=== PATIENT | male | born 1965 | race Caucasian/White ===

== ENCOUNTER → 2017-12-02 11:08 | Outpatient (REF) | payer OTHER, SELFPAY ==
[2017-12-02 13:46] LABS: Amphetamine/Metha Screen,Urine Negative ng/mL (<1000); Barbiturates Screen,Urine Negative ng/mL (<200); Benzodiazepines Screen,Urine Negative ng/mL (200); Cannabinoid Screen,Urine Negative ng/mL (<50); Cocaine Screen,Urine Negative ng/g (<300); Methadone Screen,Urine Negative ng/mL (<300); Opiate Screen,Urine Positive ng/mL (<300); Phencyclidine Screen,Urine Negative ng/mL (<25)
== END ==
LOC: LAB 11:08
PROVIDERS: Visit Provider Emergency Medicine
DX: Z79.899 Other long term (current) drug therapy (principal)
CPT/HCPCS: 80305

== ENCOUNTER → 2017-12-28 13:14 | Outpatient (CLI) | payer OTHER, SELFPAY ==
[2017-12-28 19:45] LABS: Hemoglobin A1C 5.8 % (0.0-7.0)
[2017-12-28 20:32] LABS: Anion Gap 11.5 mEq/L (5-15); Blood Urea Nitrogen 11 mg/dL (7-18); Carbon Dioxide 29 mmol/L (21.0-32.0); Chloride 97 mmol/L (98-107); Creatinine,Serum 0.88 mg/dL (0.70-1.30); Estimated Glomerular Filt Rate 91 ml/min (>60); GFR (African American) 110 ML/MIN (>60); Glucose 108 mg/dL (74-106); Potassium 4.5 mmoL/L (3.5-5.1); Sodium 133 mmol/L (136-145)
[2017-12-28 20:33] LABS: Amphetamine/Metha Screen,Urine Negative ng/mL (<1000); Barbiturates Screen,Urine Negative ng/mL (<200); Benzodiazepines Screen,Urine Negative ng/mL (200); Cannabinoid Screen,Urine Negative ng/mL (<50); Cocaine Screen,Urine Negative ng/g (<300); Methadone Screen,Urine Negative ng/mL (<300); Opiate Screen,Urine Positive ng/mL (<300); Phencyclidine Screen,Urine Negative ng/mL (<25)
== END ==
PROVIDERS: Visit Provider Emergency Medicine
DX: Z79.899 Other long term (current) drug therapy (principal); R53.83 Other fatigue
CPT/HCPCS: 80048; 80305; 83036

== ENCOUNTER → 2018-01-25 13:13 | Outpatient (REF) | payer OTHER, SELFPAY ==
[2018-01-25 18:35] LABS: Amphetamine/Metha Screen,Urine Negative ng/mL (<1000); Barbiturates Screen,Urine Negative ng/mL (<200); Benzodiazepines Screen,Urine Negative ng/mL (200); Cannabinoid Screen,Urine Negative ng/mL (<50); Cocaine Screen,Urine Negative ng/g (<300); Methadone Screen,Urine Negative ng/mL (<300); Opiate Screen,Urine Positive ng/mL (<300); Phencyclidine Screen,Urine Negative ng/mL (<25)
== END ==
LOC: LAB 13:13
PROVIDERS: Visit Provider Emergency Medicine
DX: Z79.899 Other long term (current) drug therapy (principal)
CPT/HCPCS: 80305

== ENCOUNTER → 2018-01-26 08:49 | Outpatient (POV) | payer OTHER, SELFPAY ==
[2018-01-26 08:56] VITALS: BP 140/91; PULSE 68; RESP 18; TEMP 36.7; O2SAT 96; BMI 29.8
--- NOTE | 2018-01-26 09:29 | HMH.PAINSOAP ---
[facility] Pain Management SOAP Note Subjective:: Patient is a pleasant 51-year-old white male who presents today to discuss his chronic low back pain. Patient has been seen in our office twice. At the last visit he was going to be evaluated by Dr. Turcios. Patient states he went to Dr. Turcios and Dr. Turcios did not recommend surgery at the time. Patient does have a lumbar MRI that shows disc protrusion/herniation at L2-L3 with moderate right frontal narrowing and mild impingement upon the exiting L2 nerve root. Patient also has disc bulge at L4-L5. Patient states most of his pain is in his low back he rates his pain a 7 out of 10 today. He states that it goes into both of his legs however the right leg is worse than the left. Patient is currently being medically managed by his primary care on [place] 5 mg 1 p.o. 4 times daily and gabapentin 600 mg. He states that this does help his pain a little bit. Patient states that he has done physical therapy in the past but was unable to complete it due to increased pain. Patient states he is on an anti-inflammatory as needed. ROS General: no recent weight change, no fever Respiratory: no cough, no shortness of air, no recurring pulmonary infections Cardiovascular/Peripheral Vascular: No chest pain, No palpitations, no edema, no shortness of breath. Gastrointestinal: no incontinence, normal bowel movements reported Genitourinary: no incontinence Musculoskeletal: Back pain Psychiatric: normal mood/ affect, Neurological: Weakness in right lower extremity, [denies balance issues] Objective:: Physical Exam General: Alert and oriented x3, no acute distress, pleasant and cooperative, [on room air] Lungs: Resps E/U, Symmetrical chest expansion, Eyes: PERRL Musculoskeletal: Flexion and extension of lumbar spine somewhat guarded secondary to pain, deep tendon reflexes normal, strength in upper and lower extremities [5/5], slightly antalgic gait noted, positive straight leg test bilaterally at 30? Neurological: speech clear, civil engineer helper equal, no gross sensory deficits Assessment:: Lumbar back pain, lumbar disc bulge, degenerative disc disease of the lumbar spine with lumbar radiculopathy Plan:: Discussed with the patient that the beginning treatment for this is typically lumbar epidural steroid injections. Patient states he is uninterested in that at this time. I asked the patient how I can help him today and he stated he did not know. I gave him information on epidural steroid injections and we would be more than happy to pursue this in the future if he decides that is what he would like to do. This note was dictated using voice recognition software and may contain errors or omissions
--- NOTE | 2018-01-26 09:33 | P.CONS_ITS ---
[facility] Pain Management SOAP Note Subjective:: Patient is a pleasant 51-year-old white male who presents today to discuss his chronic low back pain. Patient has been seen in our office twice. At the last visit he was going to be evaluated by Dr. Turcios. Patient states he went to Dr. Turcios and Dr. Turcios did not recommend surgery at the time. Patient does have a lumbar MRI that shows disc protrusion/herniation at L2-L3 with moderate right frontal narrowing and mild impingement upon the exiting L2 nerve root. Patient also has disc bulge at L4-L5. Patient states most of his pain is in his low back he rates his pain a 7 out of 10 today. He states that it goes into both of his legs however the right leg is worse than the left. Patient is currently being medically managed by his primary care on [place] 5 mg 1 p.o. 4 times daily and gabapentin 600 mg. He states that this does help his pain a little bit. Patient states that he has done physical therapy in the past but was unable to complete it due to increased pain. Patient states he is on an anti- inflammatory as needed. ROS General: no recent weight change, no fever Respiratory: no cough, no shortness of air, no recurring pulmonary infections Cardiovascular/Peripheral Vascular: No chest pain, No palpitations, no edema, no shortness of breath. Gastrointestinal: no incontinence, normal bowel movements reported Genitourinary: no incontinence Musculoskeletal: Back pain Psychiatric: normal mood/ affect, Neurological: Weakness in right lower extremity, [denies balance issues] Objective:: Physical Exam General: Alert and oriented x3, no acute distress, pleasant and cooperative, [ on room air] Lungs: Resps E/U, Symmetrical chest expansion, Eyes: PERRL Musculoskeletal: Flexion and extension of lumbar spine somewhat guarded secondary to pain, deep tendon reflexes normal, strength in upper and lower extremities [5/5], slightly antalgic gait noted, positive straight leg test bilaterally at 30? Neurological: speech clear, local tanker truck driver equal, no gross sensory deficits Assessment:: Lumbar back pain, lumbar disc bulge, degenerative disc disease of the lumbar spine with lumbar radiculopathy Plan:: Discussed with the patient that the beginning treatment for this is typically lumbar epidural steroid injections. Patient states he is uninterested in that at this time. I asked the patient how I can help him today and he stated he did not know. I gave him information on epidural steroid injections and we would be more than happy to pursue this in the future if he decides that is what he would like to do. This note was dictated using voice recognition software and may contain errors or omissions
== END ==
PROVIDERS: Family Provider Emergency Medicine; PCP Emergency Medicine; Visit Provider Clinical Nurse Specialist Family Health
DX: M54.16 Radiculopathy, lumbar region (principal)
CPT/HCPCS: 99212

== ENCOUNTER 2018-02-12 15:57 | Emergency (ER) | payer OTHER, SELFPAY ==
[2018-02-12 16:02] VITALS: BP 134/81; PULSE 81; RESP 18; TEMP 37.1; O2SAT 95; BMI 30.3
--- NOTE | 2018-02-12 16:16 | CT_ITS ---
CT head/brain wo con HISTORY: Severe headache ITS.REASON: C/O HEADACHE ORDERING PHYSICIAN: Jeramy Rivera MD PATIENT AGE: 52 years COMPARISON: None TECHNIQUE: Axial images obtained without contrast. Brain and bone windows reviewed. All CT scans at the facility use one or more dose reduction, viz: automated exposure control; ma/kV adjustment per patient size (including targeted exams where dose is matched to indication; i.e. head); or iterative reconstruction technique. FINDINGS: No midline shift, mass effect, intracranial hemorrhage, hydrocephalus, or extra-axial fluid collection is evident. The calvarium has an unremarkable appearance. No mastoid effusion. No sinus air-fluid levels.. IMPRESSION: Negative CT head without contrast. No acute finding.
--- NOTE | 2018-02-12 16:28 | HMH.EDGENADL ---
ED Disposition Clinical Impression: Frontal headache Disposition: Home, Self-Care Condition on Discharge: Good Instructions: DI for Headache Additional Instructions: Additional instructions for HEADACHE: See your physician as soon as possible for further evaluation. Return immediately if worsening headache, vomiting, problems with vision or speech, fever, numbness or weakness of the extremities, neck pain or stiffness. Prescriptions: Butalb/Acetaminophen/Caffeine [Fioricet 50-300-40 mg Capsule] 1 each PO Q4HP PRN #10 cap PRN Reason: Headache Referrals: Juanito De Luna MD [Primary Care Provider] - - Critical Care Critical Care Time: No Attestation: On 02/12/18, the high probability of a clinically significant, sudden or life threatening deterioration of the following system(s) required my full and direct attention, intervention and personal management. The time I documented below is in addition to time spent performing reported procedures but includes the following listed in this critical care notation. Medical Decision Making - Francois Inquiry Pt receiving controlled substance: Yes Francois was queried for this patient: Yes Reference #:: [id number] Risks and benefits of using a controlled substance: were not discussed with pt by me (on opiates chronically) Comment: 21 rxs. last rxs gabapentin on 02/05 and 120 norco on 01/28/18 Vital Signs: 02/12/18 16:02 Temperature 98.8 F Temperature Source Oral Pulse Rate [Right Brachial] 81 Respiratory Rate 18 Blood Pressure [Right Arm] 134/81 Blood Pressure Mean [Right Arm] 98 Blood Pressure Source [Right Arm] Automatic Cuff Blood Pressure Position [Right Arm] Sitting 02 Sat by Pulse Oximetry 95 Oxygen Delivery Method Room Air - Lab Data Lab Results 02/12/18 16:30: WBC 10.4, RBC 4.74, Hgb 14.3, Hct 43.7, MCV 92.1, MCH 30.1, MCHC 32.7, RDW 14.0, Plt Count 251, MPV 7.5, Neut % (Auto) 71.9, Lymph % (Auto) 16.2, [place] % (Auto) 9.6 H, Eos % (Auto) 2.0, Baso % (Auto) 0.3, Neut # (Auto) 7.5, Lymph # (Auto) 1.7, [place] # (Auto) 1.0, Eos # (Auto) 0.2, Baso # (Auto) 0.0 03/23/18 16:30: Sodium 131 L, Potassium 4.0, Chloride 97 L, Carbon Dioxide 29, Anion Gap 9.0, BUN 10, Creatinine 0.87, Estimated Creat Clear 148, Estimated GFR 93, Est GFR ( Amer) 112, Glucose 142 H, Calcium 9.3, Total Bilirubin 1.4 H, AST 29, ALT 43, Alkaline Phosphatase 103, Total Protein 8.4 H, Albumin 3.4, Globulin 5.0 H, Albumin/Globulin Ratio 0.7 L 02/12/18 16:30: Lactic Acid 0.9 Result diagrams: 02/12/18 16:30 02/12/18 16:30 Orders (Tests/Meds): ED MEDICATIONS Discontinued Medications Generic Name Dose Route Start Last Admin Trade Name Freq PRN Reason Stop Dose Admin Diphenhydramine HCl 25 mg 02/12/18 17:10 02/12/18 17:30 Benadryl 50mg/1ml Vial IV 02/12/18 17:11 25 mg ONCE ONE Administration Sodium Chloride 1,000 mls @ 999 mls/hr 02/12/18 16:45 02/12/18 16:39 Sod Chlor 0.9% 1000ml Bag IV 02/12/18 17:45 999 mls/hr .Q1H1M DELON Administration Ketorolac Tromethamine 30 mg 02/12/18 17:09 02/12/18 17:30 Toradol 30mg/Ml Vial IV 02/12/18 17:10 30 mg ONCE ONE Administration Morphine Sulfate 4 mg 02/12/18 17:09 02/12/18 17:30 Morphine 4mg/Ml Syringe IV 02/12/18 17:10 4 mg ONCE ONE Administration Ondansetron HCl 4 mg 02/12/18 16:38 02/12/18 16:39 Zofran 4mg/2ml Vial IV 02/12/18 16:39 4 mg ONCE ONE Administration Prochlorperazine Edisylate 5 mg 02/12/18 17:10 02/12/18 17:30 Compazine 10mg/2ml Vial IV 02/12/18 17:11 5 mg ONCE ONE Administration ORDERS Category Date Time Status Blood Culture Stat Micro 02/12/18 16:30 Received - CT Data CT Scan: Head Time Received: 17:[address] Reviewed: Yes: I have viewed the radiologist's interpretation Preliminary Findings: Normal/NAD Medical Decision Narrative: 6:10 PM: Patient says feels much better. Has still has a little pressure behind his eyes, but markedly improved.
[2018-02-12 16:41] LABS: Basophils % 0.3 % (0.1-2.0); Eosinophils # 0.2 K/mm3 (0.0-0.4); Hematocrit 43.7 % (42.0-52.0); Hemoglobin 14.3 g/dL (14.1-18.0); Lymphocytes # 1.7 K/mm3 (0.7-4.5); Lymphocytes % 16.2 K/mm3 (10-50); Mean Corpuscular HGB Conc 32.7 g/dL (31.8-35.4); Mean Corpuscular Hemoglobin 30.1 pg (27.0-31.2); Mean Corpuscular Volume 92.1 fl (80-94); Mean Platelet Volume 7.5 fl (7.4-10.4); Monocytes % 9.6 % (1.7-9.3); Neutrophils # 7.5 K/mm3 (1.8-7.8); Neutrophils % 71.9 % (37.0-80.0); Platelet Count 251 K/mm3 (142-424); Red Blood Count 4.74 M/mm3 (4.60-6.20); White Blood Count 10.4 K/mm3 (4.8-10.8)
--- NOTE | 2018-02-12 16:42 | PC.NURSE ---
TO RADIOLOGY PER W/C.
[2018-02-12 16:53] LABS: Alanine Aminotransferase 43 U/L (12-78); Albumin Level 3.4 gm/dL (3.4-5.0); Albumin/Globulin Ratio 0.7 (1.1-1.8); Alkaline Phosphatase 103 U/L (46-116); Aspartate Amino Transferase 29 U/L (15-37); Bilirubin,Total 1.4 mg/dL (0.2-1.0); Blood Urea Nitrogen 10 mg/dL (7-18); Calcium 9.3 mg/dL (8.5-10.1); Carbon Dioxide 29 mmol/L (21.0-32.0); Chloride 97 mmol/L (98-107); Creatinine Clearance Estimated 148 mL/min (0-300); Creatinine,Serum 0.87 mg/dL (0.70-1.30); Estimated Glomerular Filt Rate 93 ml/min (>60); GFR (African American) 112 ML/MIN (>60); Glucose 142 mg/dL (74-106); Sodium 131 mmol/L (136-145); Total Protein,Serum 8.4 gm/dL (6.4-8.2)
[2018-02-12 16:57] LABS: Lactic Acid 0.9 mmol/L (0.4-2.0)
[2018-02-12 18:54] VITALS: BP 130/70; PULSE 84; RESP 14; TEMP 36.7; O2SAT 98
== END 2018-02-12 18:54 | disposition home or self-care (01) ==
PROVIDERS: Emergency Provider Emergency Medicine; Family Provider Emergency Medicine; PCP Emergency Medicine
DX: R51 Headache (principal); F17.210 Nicotine dependence, cigarettes, uncomplicated; Z79.82 Long term (current) use of aspirin; K21.9 Gastro-esophageal reflux disease without esophagitis; I10 Essential (primary) hypertension; E78.5 Hyperlipidemia, unspecified; Z95.0 Presence of cardiac pacemaker
CPT/HCPCS: 70450; 80053; 83605; 85025; 87040; 96365; 96375; 99282; J2405

== ENCOUNTER → 2018-02-24 14:39 | Outpatient (REF) | payer OTHER, SELFPAY ==
[2018-02-24 20:53] LABS: Amphetamine/Metha Screen,Urine Negative ng/mL (<1000); Barbiturates Screen,Urine Negative ng/mL (<200); Benzodiazepines Screen,Urine Negative ng/mL (200); Cannabinoid Screen,Urine Negative ng/mL (<50); Cocaine Screen,Urine Negative ng/g (<300); Methadone Screen,Urine Negative ng/mL (<300); Opiate Screen,Urine Positive ng/mL (<300); Phencyclidine Screen,Urine Negative ng/mL (<25)
== END ==
LOC: LAB 14:39
PROVIDERS: Visit Provider Emergency Medicine
DX: Z79.899 Other long term (current) drug therapy (principal)
CPT/HCPCS: 80305

== ENCOUNTER → 2018-03-23 16:26 | Outpatient (CLI) | payer OTHER, SELFPAY ==
--- NOTE | 2018-03-23 16:44 | XR_ITS ---
XR chest 2V HISTORY: ITS.REASON: Cough ORDERING PHYSICIAN: Juanito De Luna MD PATIENT AGE: 52 years COMPARISON: FINDINGS: The cardiomediastinal silhouette and pulmonary vascularity are within normal limits. The lungs are clear without infiltrates, suspicious nodules, or pleural effusions. There is a calcified granuloma right lung base No acute bony abnormalities. IMPRESSION: Negative chest, no acute finding
[2018-03-23 16:57] LABS: Basophils % 0.5 % (0.1-2.0); Eosinophils # 0.2 K/mm3 (0.0-0.4); Eosinophils % 2.3 % (0.1-12.0); Hematocrit 41.2 % (42.0-52.0); Hemoglobin 13.6 g/dL (14.1-18.0); Lymphocytes # 1.4 K/mm3 (0.7-4.5); Lymphocytes % 17.4 K/mm3 (10-50); Mean Corpuscular Hemoglobin 29.7 pg (27.0-31.2); Mean Corpuscular Volume 90.2 fl (80-94); Mean Platelet Volume 7.4 fl (7.4-10.4); Monocytes # 0.8 K/mm3 (0.1-1.0); Monocytes % 9.7 % (1.7-9.3); Neutrophils # 5.5 K/mm3 (1.8-7.8); Platelet Count 338 K/mm3 (142-424); Red Blood Count 4.57 M/mm3 (4.60-6.20); White Blood Count 7.9 K/mm3 (4.8-10.8)
[2018-03-23 17:39] LABS: Alanine Aminotransferase 48 U/L (12-78); Albumin Level 3.4 gm/dL (3.4-5.0); Albumin/Globulin Ratio 0.8 (1.1-1.8); Alkaline Phosphatase 140 U/L (46-116); Anion Gap 12.1 mEq/L (5-15); Aspartate Amino Transferase 40 U/L (15-37); Bilirubin,Total 0.6 mg/dL (0.2-1.0); Blood Urea Nitrogen 17 mg/dL (7-18); Calcium 9.3 mg/dL (8.5-10.1); Carbon Dioxide 30 mmol/L (21.0-32.0); Chloride 97 mmol/L (98-107); Estimated Glomerular Filt Rate 89 ml/min (>60); GFR (African American) 108 ML/MIN (>60); Globulin 4.2 gm/dl (1.3-3.2); Glucose 117 mg/dL (74-106); Potassium 4.1 mmoL/L (3.5-5.1); Sodium 135 mmol/L (136-145); Total Protein,Serum 7.6 gm/dL (6.4-8.2)
[2018-03-23 17:46] LABS: C-Reactive Protein 28.4 mg/L (0.0-0.9)
[2018-03-23 18:56] LABS: Erythrocyte Sedimentation Rate 118 mm/hr (0-20)
== END ==
PROVIDERS: PCP Emergency Medicine; Visit Provider Emergency Medicine
DX: R53.1 Weakness (principal); M54.9 Dorsalgia, unspecified
CPT/HCPCS: 36415; 71046; 80053; 85025; 85651; 86140; 86617; 87040

== ENCOUNTER → 2018-03-24 14:33 | Outpatient (REF) | payer OTHER, SELFPAY ==
[2018-03-24 18:51] LABS: Amphetamine/Metha Screen,Urine Negative ng/mL (<1000); Barbiturates Screen,Urine Negative ng/mL (<200); Benzodiazepines Screen,Urine Negative ng/mL (200); Cannabinoid Screen,Urine Negative ng/mL (<50); Cocaine Screen,Urine Negative ng/g (<300); Methadone Screen,Urine Negative ng/mL (<300); Opiate Screen,Urine Positive ng/mL (<300); Phencyclidine Screen,Urine Negative ng/mL (<25)
== END ==
LOC: LAB 14:33
PROVIDERS: Visit Provider Emergency Medicine
DX: Z79.899 Other long term (current) drug therapy (principal)
CPT/HCPCS: 80305

== ENCOUNTER → 2018-03-30 14:30 | Outpatient (CLI) | payer OTHER, SELFPAY ==
[2018-03-30 15:15] LABS: Basophils % 0.8 % (0.1-2.0); Eosinophils # 0.2 K/mm3 (0.0-0.4); Eosinophils % 3.3 % (0.1-12.0); Hematocrit 40.8 % (42.0-52.0); Hemoglobin 13.3 g/dL (14.1-18.0); Lymphocytes # 1.4 K/mm3 (0.7-4.5); Lymphocytes % 26.2 K/mm3 (10-50); Mean Corpuscular HGB Conc 32.6 g/dL (31.8-35.4); Mean Corpuscular Hemoglobin 29.7 pg (27.0-31.2); Mean Platelet Volume 6.8 fl (7.4-10.4); Monocytes # 0.3 K/mm3 (0.1-1.0); Monocytes % 4.5 % (1.7-9.3); Neutrophils # 3.6 K/mm3 (1.8-7.8); Neutrophils % 65.3 % (37.0-80.0); Platelet Count 361 K/mm3 (142-424); Red Blood Count 4.49 M/mm3 (4.60-6.20); Red Cell Distribution Width 14.1 % (11.5-17.5); White Blood Count 5.5 K/mm3 (4.8-10.8)
[2018-03-30 16:03] LABS: Erythrocyte Sedimentation Rate 51 mm/hr (0-20)
== END ==
PROVIDERS: Visit Provider Emergency Medicine
DX: R53.1 Weakness (principal)
CPT/HCPCS: 36415; 85025; 85651; 86140

== ENCOUNTER → 2018-04-21 15:23 | Outpatient (REF) | payer OTHER, SELFPAY ==
[2018-04-21 18:04] LABS: C-Reactive Protein 5.9 mg/L (0.0-0.9)
[2018-04-21 18:24] LABS: Basophils # 0.1 K/mm3 (0-0.2); Basophils % 1.1 % (0.1-2.0); Eosinophils # 0.2 K/mm3 (0.0-0.4); Hematocrit 40.1 % (42.0-52.0); Hemoglobin 12.5 g/dL (14.1-18.0); Lymphocytes % 36.5 K/mm3 (10-50); Mean Corpuscular HGB Conc 31.2 g/dL (31.8-35.4); Mean Corpuscular Hemoglobin 28.5 pg (27.0-31.2); Mean Corpuscular Volume 91.5 fl (80-94); Mean Platelet Volume 7.4 fl (7.4-10.4); Monocytes # 0.4 K/mm3 (0.1-1.0); Monocytes % 7.8 % (1.7-9.3); Neutrophils # 2.8 K/mm3 (1.8-7.8); Neutrophils % 50.7 % (37.0-80.0); Platelet Count 356 K/mm3 (142-424); Red Blood Count 4.38 M/mm3 (4.60-6.20); Red Cell Distribution Width 14.2 % (11.5-17.5); White Blood Count 5.5 K/mm3 (4.8-10.8)
[2018-04-21 18:44] LABS: Amphetamine/Metha Screen,Urine Negative ng/mL (<1000); Barbiturates Screen,Urine Negative ng/mL (<200); Benzodiazepines Screen,Urine Negative ng/mL (200); Cannabinoid Screen,Urine Negative ng/mL (<50); Cocaine Screen,Urine Negative ng/g (<300); Methadone Screen,Urine Negative ng/mL (<300); Opiate Screen,Urine Positive ng/mL (<300); Phencyclidine Screen,Urine Negative ng/mL (<25)
[2018-04-21 20:07] LABS: Erythrocyte Sedimentation Rate 57 mm/hr (0-20)
== END ==
LOC: LAB 15:23
PROVIDERS: Visit Provider Emergency Medicine
DX: M54.9 Dorsalgia, unspecified (principal); R53.83 Other fatigue; Z79.899 Other long term (current) drug therapy
CPT/HCPCS: 80305; 85025; 85651; 86140

== ENCOUNTER → 2018-05-21 07:48 | Outpatient (CLI) | payer OTHER, SELFPAY ==
--- NOTE | 2018-05-21 07:49 | CA_ITS ---
PROCEDURE: 2-D M-mode and color Doppler study INDICATIONS FOR THE TEST: Chest pain COPD Heart Murmur Tobacco Smoking+ Palpitations+ Fatigue+ Syncope Edema+ Hypertension+Diabetes Mellitus Rheumatic Fever SOB DON+Obesity Hyperlipidemia+ Family History HD+ Additional History GERD, dizziness PATIENT INFORMATION HEIGHT: 73 WEIGHT: 216 GENDER: Male B/P:146/77 2-D/M-MODE INTERPRETATION: 2-D MEASUREMENTS OBSERVED VALUES IN CMS Right Ventricular Dimension (RVDd) 2.3 Interventricular Septum (Thickness)(IVsd) 0.9 Left Ventricular Internal Dimensions(LVIDd) 5.4 Left Ventricular Posterior Wall (Thickness)(LVPWd) 0.9 Aortic Root 2.9 Aortic Cusp Separation 2.1 Left Atrial Dimensions (LAD) 4.1 2D 1. Left atrium is mildly enlarged, left ventricle is normal size, mild qualitative concentric left ventricular hypertrophy, visually estimated ejection fraction 55% with no obvious regional wall motion abnormality. 2. The right atrium and right ventricle are normal size and contractility. 3. The aortic valve is minimally thickened and fibrosed. 4. The mitral and tricuspid valve are grossly normal. 5. Pulmonic valve is poorly visualized. 6. No significant pericardial effusion noted. DOPPLER INTERROGATION: Doppler interrogation of the aortic, mitral and tricuspid valvular presence of mild mitral and tricuspid regurgitation, tricuspid regurgitant jet velocity is insufficient for calculation of the right ventricular systolic pressure, grade 1 diastolic dysfunction seen with tissue Doppler evidence of raised left atrial pressure. CONCLUSION: 1. Mildly enlarged left atrium, normal left ventricular size, mild qualitative concentric left ventricular hypertrophy, visually estimated ejection fraction 55% with no obvious regional wall motion abnormality, grade 1 diastolic dysfunction seen with tissue Doppler evidence of raised left atrial pressure. 2. Mild mitral and tricuspid regurgitation. 3. No significant pericardial effusion noted.
--- NOTE | 2018-05-21 07:49 | NM_ITS ---
NM bone scan whole body CLINICAL INDICATION: ITS.REASON: elevated ESR and CRP ORDERING PHYSICIAN: Juanito De Luna MD PATIENT AGE: 52 years Comparison: None DOSE: 26.3 mCi MDP FINDINGS: There is slight increased activity in the right hip. Review of prior radiographs some mild degenerative change in the right hip. The spine has an unremarkable appearance. No abnormal long bone activity evident. IMPRESSION: Essentially negative whole body bone scan
[2018-05-21 09:23] LABS: Erythrocyte Sedimentation Rate 61 mm/hr (0-20)
[2018-05-21 10:54] LABS: C-Reactive Protein 2.4 mg/L (0.0-0.9)
[2018-05-24 11:15] LABS: Amphetamine/Metha Screen,Urine Negative ng/mL (<1000); Barbiturates Screen,Urine Negative ng/mL (<200); Benzodiazepines Screen,Urine Negative ng/mL (<200); Cannabinoid Screen,Urine Negative ng/mL (<50); Cocaine Screen,Urine Negative ng/mL (<300); Methadone Screen,Urine Negative ng/mL (<300); Opiate Screen,Urine Positive ng/mL (<300); Phencyclidine Screen,Urine Negative ng/mL (<25)
== END ==
PROVIDERS: Family Provider Emergency Medicine; PCP Emergency Medicine; Visit Provider Emergency Medicine
DX: R79.82 Elevated C-reactive protein (CRP) (principal); R70.0 Elevated erythrocyte sedimentation rate; Z79.899 Other long term (current) drug therapy
CPT/HCPCS: 36415; 78306; 80305; 85651; 86140; 93306; A9503

== ENCOUNTER → 2018-05-21 08:28 | Outpatient (CLI) | payer OTHER, SELFPAY | PROVIDERS: Visit Provider Emergency Medicine | DX: Z79.899 Other long term (current) drug therapy (principal) ==

== ENCOUNTER → 2018-06-18 15:16 | Outpatient (REF) | payer OTHER, SELFPAY ==
[2018-06-18 18:41] LABS: Basophils # 0.1 K/mm3 (0-0.2); Basophils % 1.1 % (0.1-2.0); Eosinophils # 0.2 K/mm3 (0.0-0.4); Eosinophils % 3.1 % (0.1-12.0); Hematocrit 42.5 % (42.0-52.0); Hemoglobin 13.7 g/dL (14.1-18.0); Lymphocytes # 1.7 K/mm3 (0.7-4.5); Lymphocytes % 21.5 K/mm3 (10-50); Mean Corpuscular HGB Conc 32.1 g/dL (31.8-35.4); Mean Corpuscular Hemoglobin 29.2 pg (27.0-31.2); Mean Corpuscular Volume 90.9 fl (80-94); Mean Platelet Volume 7.3 fl (7.4-10.4); Monocytes # 0.5 K/mm3 (0.1-1.0); Neutrophils # 5.4 K/mm3 (1.8-7.8); Neutrophils % 68.3 % (37.0-80.0); Platelet Count 282 K/mm3 (142-424); Red Blood Count 4.68 M/mm3 (4.60-6.20); Red Cell Distribution Width 14.5 % (11.5-17.5); White Blood Count 7.9 K/mm3 (4.8-10.8)
[2018-06-18 18:48] LABS: C-Reactive Protein 2.2 mg/L (0.0-0.9)
[2018-06-18 18:51] LABS: Amphetamine/Metha Screen,Urine Negative ng/mL (<1000); Barbiturates Screen,Urine Negative ng/mL (<200); Benzodiazepines Screen,Urine Negative ng/mL (<200); Cannabinoid Screen,Urine Negative ng/mL (<50); Cocaine Screen,Urine Negative ng/mL (<300); Methadone Screen,Urine Negative ng/mL (<300); Opiate Screen,Urine Positive ng/mL (<300); Phencyclidine Screen,Urine Negative ng/mL (<25)
[2018-06-18 20:15] LABS: Erythrocyte Sedimentation Rate 17 mm/hr (0-20)
== END ==
LOC: LAB 15:16
PROVIDERS: Visit Provider Emergency Medicine
DX: R79.9 Abnormal finding of blood chemistry, unspecified (principal); Z79.899 Other long term (current) drug therapy
CPT/HCPCS: 80305; 85025; 85651; 86140

== ENCOUNTER → 2018-07-21 15:41 | Outpatient (REF) | payer OTHER, SELFPAY ==
[2018-07-21 19:05] LABS: Amphetamine/Metha Screen,Urine Negative ng/mL (<1000); Barbiturates Screen,Urine Negative ng/mL (<200); Benzodiazepines Screen,Urine Negative ng/mL (<200); Cannabinoid Screen,Urine Negative ng/mL (<50); Cocaine Screen,Urine Negative ng/mL (<300); Methadone Screen,Urine Negative ng/mL (<300); Opiate Screen,Urine Positive ng/mL (<300); Phencyclidine Screen,Urine Negative ng/mL (<25)
== END ==
LOC: LAB 15:41
PROVIDERS: Visit Provider Emergency Medicine
DX: Z79.899 Other long term (current) drug therapy (principal)
CPT/HCPCS: 80305

== ENCOUNTER → 2018-08-17 16:02 | Outpatient (REF) | payer OTHER, SELFPAY ==
[2018-08-17 19:17] LABS: Amphetamine/Metha Screen,Urine Negative ng/mL (<1000); Barbiturates Screen,Urine Negative ng/mL (<200); Benzodiazepines Screen,Urine Negative ng/mL (<200); Cannabinoid Screen,Urine Negative ng/mL (<50); Cocaine Screen,Urine Negative ng/mL (<300); Methadone Screen,Urine Negative ng/mL (<300); Opiate Screen,Urine Positive ng/mL (<300); Phencyclidine Screen,Urine Negative ng/mL (<25)
== END ==
LOC: LAB 16:02
PROVIDERS: Visit Provider Emergency Medicine
DX: Z79.899 Other long term (current) drug therapy (principal)
CPT/HCPCS: 80305

== ENCOUNTER → 2018-09-15 19:48 | Outpatient (REF) | payer OTHER, SELFPAY ==
[2018-09-15 21:18] LABS: Amphetamine/Metha Screen,Urine Negative ng/mL (<1000); Barbiturates Screen,Urine Negative ng/mL (<200); Benzodiazepines Screen,Urine Negative ng/mL (<200); Cannabinoid Screen,Urine Negative ng/mL (<50); Cocaine Screen,Urine Negative ng/mL (<300); Methadone Screen,Urine Negative ng/mL (<300); Opiate Screen,Urine Positive ng/mL (<300); Phencyclidine Screen,Urine Negative ng/mL (<25)
== END ==
LOC: LAB 19:48
PROVIDERS: PCP Nurse Practitioner Family; Visit Provider Nurse Practitioner Family
DX: Z79.899 Other long term (current) drug therapy (principal)
CPT/HCPCS: 80305

== ENCOUNTER → 2018-10-18 17:57 | Outpatient (CLI) | payer OTHER, SELFPAY ==
[2018-10-18 18:16] LABS: Basophils # 0.1 K/mm3 (0-0.2); Basophils % 0.9 % (0.1-2.0); Eosinophils # 0.2 K/mm3 (0.0-0.4); Eosinophils % 2.3 % (0.1-12.0); Hematocrit 38.2 % (42.0-52.0); Hemoglobin 12.5 g/dL (14.1-18.0); Lymphocytes # 1.6 K/mm3 (0.7-4.5); Lymphocytes % 23.4 % (10-50); Mean Corpuscular HGB Conc 32.6 g/dL (31.8-35.4); Mean Corpuscular Hemoglobin 28.8 pg (27.0-31.2); Mean Corpuscular Volume 88.3 fl (80-94); Mean Platelet Volume 7.1 fl (7.4-10.4); Monocytes # 0.7 K/mm3 (0.1-1.0); Monocytes % 9.2 % (1.7-9.3); Neutrophils # 4.5 K/mm3 (1.8-7.8); Neutrophils % 64.1 % (37.0-80.0); Platelet Count 407 K/mm3 (142-424); Red Blood Count 4.32 M/mm3 (4.60-6.20); Red Cell Distribution Width 14.3 % (11.5-17.5)
[2018-10-18 18:48] LABS: Erythrocyte Sedimentation Rate 105 mm/hr (0-20)
[2018-10-18 18:56] LABS: Amphetamine/Metha Screen,Urine Negative ng/mL (<1000); Barbiturates Screen,Urine Negative ng/mL (<200); Benzodiazepines Screen,Urine Negative ng/mL (<200); Cannabinoid Screen,Urine Negative ng/mL (<50); Cocaine Screen,Urine Negative ng/mL (<300); Methadone Screen,Urine Negative ng/mL (<300); Opiate Screen,Urine Positive ng/mL (<300); Phencyclidine Screen,Urine Negative ng/mL (<25)
== END ==
PROVIDERS: Visit Provider Emergency Medicine
DX: R53.1 Weakness (principal); Z79.899 Other long term (current) drug therapy
CPT/HCPCS: 80305; 85025; 85651

== ENCOUNTER → 2018-11-17 20:30 | Outpatient (CLI) | payer OTHER, SELFPAY ==
[2018-11-17 21:57] LABS: Amphetamine/Metha Screen,Urine Negative ng/mL (<1000); Barbiturates Screen,Urine Negative ng/mL (<200); Benzodiazepines Screen,Urine Negative ng/mL (<200); Cannabinoid Screen,Urine Negative ng/mL (<50); Cocaine Screen,Urine Negative ng/mL (<300); Methadone Screen,Urine Negative ng/mL (<300); Opiate Screen,Urine Positive ng/mL (<300); Phencyclidine Screen,Urine Negative ng/mL (<25)
== END ==
PROVIDERS: Visit Provider Emergency Medicine
DX: M54.9 Dorsalgia, unspecified (principal)
CPT/HCPCS: 80305

== ENCOUNTER → 2019-01-17 14:10 | Outpatient (CLI) | payer OTHER, SELFPAY ==
[2019-01-17 14:26] LABS: Basophils # 0.1 K/mm3 (0-0.2); Basophils % 1.1 % (0.1-2.0); Eosinophils # 0.2 K/mm3 (0.0-0.4); Eosinophils % 4.6 % (0.1-12.0); Hematocrit 40.5 % (42.0-52.0); Hemoglobin 13.2 g/dL (14.1-18.0); Lymphocytes # 1.7 K/mm3 (0.7-4.5); Lymphocytes % 34.4 % (10-50); Mean Corpuscular HGB Conc 32.4 g/dL (31.8-35.4); Mean Corpuscular Hemoglobin 28.5 pg (27.0-31.2); Mean Corpuscular Volume 87.8 fl (80-94); Mean Platelet Volume 7.3 fl (7.4-10.4); Monocytes # 0.3 K/mm3 (0.1-1.0); Monocytes % 6.5 % (1.7-9.3); Neutrophils # 2.6 K/mm3 (1.8-7.8); Neutrophils % 53.3 % (37.0-80.0); Platelet Count 357 K/mm3 (142-424); Red Blood Count 4.62 M/mm3 (4.60-6.20); Red Cell Distribution Width 14.6 % (11.5-17.5); White Blood Count 4.9 K/mm3 (4.8-10.8)
[2019-01-17 14:55] LABS: Erythrocyte Sedimentation Rate 43 mm/hr (0-20)
[2019-01-17 15:27] LABS: Amphetamine/Metha Screen,Urine Negative ng/mL (<1000); Barbiturates Screen,Urine Negative ng/mL (<200); Benzodiazepines Screen,Urine Negative ng/mL (<200); Cannabinoid Screen,Urine Negative ng/mL (<50); Cocaine Screen,Urine Negative ng/mL (<300); Methadone Screen,Urine Negative ng/mL (<300); Opiate Screen,Urine Positive ng/mL (<300); Phencyclidine Screen,Urine Negative ng/mL (<25)
[2019-01-20 07:32] LABS: Testosterone,Free 1.6 pg/mL (7.2-24.0)
== END ==
PROVIDERS: Visit Provider Emergency Medicine
DX: R53.1 Weakness (principal); Z79.899 Other long term (current) drug therapy; R53.83 Other fatigue
CPT/HCPCS: 80305; 84402; 85025; 85651

== ENCOUNTER → 2019-02-15 17:56 | Outpatient (CLI) | payer OTHER, SELFPAY ==
[2019-02-15 19:20] LABS: Amphetamine/Metha Screen,Urine Negative ng/mL (<1000); Barbiturates Screen,Urine Negative ng/mL (<200); Benzodiazepines Screen,Urine Negative ng/mL (<200); Cannabinoid Screen,Urine Negative ng/mL (<50); Cocaine Screen,Urine Negative ng/mL (<300); Methadone Screen,Urine Negative ng/mL (<300); Opiate Screen,Urine Positive ng/mL (<300); Phencyclidine Screen,Urine Negative ng/mL (<25)
== END ==
PROVIDERS: Visit Provider Emergency Medicine
DX: Z79.899 Other long term (current) drug therapy (principal)
CPT/HCPCS: 80305

== ENCOUNTER → 2019-03-30 17:25 | Outpatient (CLI) | payer OTHER, SELFPAY ==
[2019-03-30 17:51] LABS: Basophils % 0.6 % (0.1-2.0); Eosinophils # 0.2 K/mm3 (0.0-0.4); Hemoglobin 12.1 g/dL (14.1-18.0); Lymphocytes # 1.8 K/mm3 (0.7-4.5); Mean Corpuscular HGB Conc 32.6 g/dL (31.8-35.4); Mean Corpuscular Hemoglobin 29.4 pg (27.0-31.2); Mean Platelet Volume 6.9 fl (7.4-10.4); Monocytes # 0.4 K/mm3 (0.1-1.0); Monocytes % 6.8 % (1.7-9.3); Neutrophils # 3.4 K/mm3 (1.8-7.8); Neutrophils % 58.7 % (37.0-80.0); Platelet Count 291 K/mm3 (142-424); Red Blood Count 4.11 M/mm3 (4.60-6.20); Red Cell Distribution Width 14.9 % (11.5-17.5); White Blood Count 5.9 K/mm3 (4.8-10.8)
[2019-03-30 19:01] LABS: Anion Gap 10.8 mEq/L (5-15); Blood Urea Nitrogen 8 mg/dL (7-18); Calcium 9.1 mg/dL (8.5-10.1); Carbon Dioxide 29 mmol/L (21.0-32.0); Chloride 102 mmol/L (98-107); Creatinine,Serum 0.91 mg/dL (0.70-1.30); Estimated Glomerular Filt Rate 87 ml/min (>60); GFR (African American) 106 ML/MIN (>60); Glucose 90 mg/dL (74-106); Potassium 3.8 mmoL/L (3.5-5.1); Sodium 138 mmol/L (136-145); T4 (Thyroxine) 6.2 ug/dl (4.7-13.3); Thyroid Stimulating Hormone 0.75 uIU/ml (0.358-3.740)
== END ==
PROVIDERS: Visit Provider Nurse Practitioner Family
DX: R60.9 Edema, unspecified (principal)
CPT/HCPCS: 80048; 84436; 84443; 85025

== ENCOUNTER → 2019-04-13 13:34 | Outpatient (CLI) | payer OTHER, SELFPAY ==
--- NOTE | 2019-04-13 13:36 | CA_ITS ---
PROCEDURE: 2-D M-mode and color Doppler study INDICATIONS FOR THE TEST: Chest pain+ COPD Heart Murmur Tobacco Smoking Palpitations Fatigue Syncope Edema+ Hypertension+Diabetes Mellitus Rheumatic Fever SOB DON Obesity Hyperlipidemia+ Family History HD Additional History PATIENT INFORMATION HEIGHT: 73 WEIGHT:236 GENDER: Male B/P:125/86 2-D/M-MODE INTERPRETATION: 2-D MEASUREMENTS OBSERVED VALUES IN CMS Right Ventricular Dimension (RVDd) 2.1 Interventricular Septum (Thickness)(IVsd) 0.7 Left Ventricular Internal Dimensions(LVIDd) 5.7 Left Ventricular Posterior Wall (Thickness)(LVPWd) 0.9 Aortic Root 3.2 Aortic Cusp Separation 2.5 Left Atrial Dimensions (LAD) 4.3 2D 1. Left atrium is mildly enlarged, left ventricle is normal size, left ventricle wall thickness is upper limit of the normal, there is preserved left ventricular systolic function, visually estimated ejection fraction 55% with no regional wall motion abnormality. 2. The right atrium and right ventricle are normal size and contractility. 3. The aortic valve is thickened and calcified leaflet continue to display mobility. 4. The mitral and tricuspid valve are grossly normal. 5. The pulmonic valve is poorly visualized. 6. No significant pericardial effusion noted. DOPPLER INTERROGATION: Doppler interrogation of the aortic, mitral and tricuspid valvular presence of mild mitral and tricuspid regurgitation, tricuspid regurgitation jet velocity is inadequate for calculation of the right ventricular systolic pressure, grade 1 diastolic dysfunction seen with tissue Doppler evidence of raised left atrial pressure. CONCLUSION: 1. Mildly enlarged left atrium, normal left ventricular size, visually estimated ejection fraction 55% with no regional wall motion abnormality, grade 1 diastolic dysfunction seen with tissue Doppler evidence of raised left atrial pressure. 2. Mild mitral and tricuspid regurgitation 3. No significant pericardial effusion noted.
== END ==
PROVIDERS: PCP Emergency Medicine; Visit Provider Internal Medicine
DX: E78.5 Hyperlipidemia, unspecified (principal); I10 Essential (primary) hypertension; R07.9 Chest pain, unspecified; R53.83 Other fatigue
CPT/HCPCS: 93017; 93306

== ENCOUNTER → 2019-04-15 17:25 | Outpatient (CLI) | payer OTHER, SELFPAY ==
[2019-04-15 19:08] LABS: Amphetamine/Metha Screen,Urine Negative ng/mL (<1000); Barbiturates Screen,Urine Negative ng/mL (<200); Benzodiazepines Screen,Urine Negative ng/mL (<200); Cannabinoid Screen,Urine Positive ng/mL (<50); Cocaine Screen,Urine Negative ng/mL (<300); Methadone Screen,Urine Negative ng/mL (<300); Opiate Screen,Urine Positive ng/mL (<300); Phencyclidine Screen,Urine Negative ng/mL (<25)
== END ==
PROVIDERS: Visit Provider Emergency Medicine
DX: Z79.899 Other long term (current) drug therapy (principal)
CPT/HCPCS: 80305

== ENCOUNTER → 2019-06-14 17:41 | Outpatient (CLI) | payer OTHER, SELFPAY ==
[2019-06-14 19:24] LABS: Amphetamine/Metha Screen,Urine Negative ng/mL (<1000); Barbiturates Screen,Urine Negative ng/mL (<200); Benzodiazepines Screen,Urine Negative ng/mL (<200); Cannabinoid Screen,Urine Negative ng/mL (<50); Cocaine Screen,Urine Negative ng/mL (<300); Methadone Screen,Urine Negative ng/mL (<300); Opiate Screen,Urine Positive ng/mL (<300); Phencyclidine Screen,Urine Negative ng/mL (<25)
== END ==
PROVIDERS: Visit Provider Emergency Medicine
DX: Z79.899 Other long term (current) drug therapy (principal)
CPT/HCPCS: 80305

== ENCOUNTER → 2019-08-12 17:42 | Outpatient (CLI) | payer OTHER, SELFPAY ==
[2019-08-12 18:40] LABS: Amphetamine/Metha Screen,Urine Negative ng/mL (<1000); Barbiturates Screen,Urine Negative ng/mL (<200); Benzodiazepines Screen,Urine Negative ng/mL (<200); Cannabinoid Screen,Urine Negative ng/mL (<50); Cocaine Screen,Urine Negative ng/mL (<300); Methadone Screen,Urine Negative ng/mL (<300); Opiate Screen,Urine Positive ng/mL (<300); Phencyclidine Screen,Urine Negative ng/mL (<25)
== END ==
PROVIDERS: Visit Provider Emergency Medicine
DX: M54.16 Radiculopathy, lumbar region (principal)
CPT/HCPCS: 80305

== ENCOUNTER → 2019-08-29 13:42 | Outpatient (POV) | payer OTHER, SELFPAY ==
[2019-08-29 13:54] VITALS: BP 130/82; PULSE 76; RESP 18; O2SAT 96; BMI 31.6
--- NOTE | 2019-08-29 14:21 | HMH.PAINSOAP ---
[facility] Pain Management SOAP Note Subjective:: Patient is a pleasant 53-year-old white male who presents today for follow-up. Patient was seen on last January for potential epidural injections however he is uninterested he states Dr. Turcios told me not to take any injections because they do not work . I discussed with the patient that with his symptomology epidurals are typical treatment. Patient is uninterested in any kind injective therapy or conservative of way of treating his pain. Rates his pain a 5 out of 10. ROS General: no recent weight change, no fever, no sleep disturbances Respiratory: no cough, no shortness of air, no recurring pulmonary infections Cardiovascular/Peripheral Vascular: No chest pain, No palpitations, no edema, no shortness of breath. Gastrointestinal: no incontinence, normal bowel movements reported Genitourinary: no incontinence Musculoskeletal: Back pain, low leg pain Psychiatric: normal mood/ affect Neurological: [denies weakness in extremities], [denies balance issues] Objective:: Physical Exam General: Alert and oriented x3, no acute distress, pleasant and cooperative, [on room air] Lungs: Resps E/U, Symmetrical chest expansion, Eyes: PERRL Musculoskeletal: Flexion and extension of lumbar spine somewhat guarded secondary to pain, deep tendon reflexes normal, strength in upper and lower extremities [5/5], slightly antalgic gait noted Neurological: speech clear, milling machine set up operator equal, no gross sensory deficits Assessment:: Degenerative disc disease lumbar spine with lumbar radiculopathy Plan:: Patient wants to continue with his narcotic medication from his primary care physician. Patient is uninterested in any other intervention that we can offer. Dr. Mcmanus has reviewed this note and agrees with this plan of care. This note was dictated using voice recognition software and may contain errors or omissions [facility] History I have reviewed the patient's past medical history: Yes Medical History: Reports:: Gastroesophageal Reflux Disease(GERD), Hyperlipidemia, Hypertension, Kidney Stones Denies:: Cancer, Diabetes Mellitus Type 1, Diabetes Mellitus Type 2, Internal Pacemaker, MRSA *Have you ever received a pneumonia vaccine?: No *Have you received a flu vaccine this season?: No Other Medical History: Reports: Other Other Surgeries: Yes: Cholecystectomy, EGD, Other (lipotripsy). No: Pacemaker Amputation: No Fractures: No - *Social History Smoking Status: Never smoker # Packs/Day (cigarettes): 1 #Yrs smoked (if former smoker): 20 Alcohol Intake: never Substance Use Type: denies use *Occupational Status:: other Housing: house Household Members: spouse *Travel in the last 8 weeks: None Family Hx:: Cancer, Stroke, Hypertension, Hyperlipidemia
--- NOTE | 2019-08-29 14:24 | P.CONS_ITS ---
[facility] Pain Management SOAP Note Subjective:: Patient is a pleasant 53-year-old white male who presents today for follow-up. Patient was seen on last January for potential epidural injections however he is uninterested he states Dr. Turcios told me not to take any injections because they do not work . I discussed with the patient that with his symptomology epidurals are typical treatment. Patient is uninterested in any kind injective therapy or conservative of way of treating his pain. Rates his pain a 5 out of 10. ROS General: no recent weight change, no fever, no sleep disturbances Respiratory: no cough, no shortness of air, no recurring pulmonary infections Cardiovascular/Peripheral Vascular: No chest pain, No palpitations, no edema, no shortness of breath. Gastrointestinal: no incontinence, normal bowel movements reported Genitourinary: no incontinence Musculoskeletal: Back pain, low leg pain Psychiatric: normal mood/ affect Neurological: [denies weakness in extremities], [denies balance issues] Objective:: Physical Exam General: Alert and oriented x3, no acute distress, pleasant and cooperative, [on room air] Lungs: Resps E/U, Symmetrical chest expansion, Eyes: PERRL Musculoskeletal: Flexion and extension of lumbar spine somewhat guarded secondary to pain, deep tendon reflexes normal, strength in upper and lower extremities [5/5], slightly antalgic gait noted Neurological: speech clear, policy adviser equal, no gross sensory deficits Assessment:: Degenerative disc disease lumbar spine with lumbar radiculopathy Plan:: Patient wants to continue with his narcotic medication from his primary care physician. Patient is uninterested in any other intervention that we can offer. Dr. Mcmanus has reviewed this note and agrees with this plan of care. This note was dictated using voice recognition software and may contain errors or omissions [facility] History I have reviewed the patient's past medical history: Yes Medical History: Reports:: Gastroesophageal Reflux Disease(GERD), Hyperlipidemia, Hypertension, Kidney Stones Denies:: Cancer, Diabetes Mellitus Type 1, Diabetes Mellitus Type 2, Internal Pacemaker, MRSA *Have you ever received a pneumonia vaccine?: No *Have you received a flu vaccine this season?: No Other Medical History: Reports: Other Other Surgeries: Yes: Cholecystectomy, EGD, Other (lipotripsy). No: Pacemaker Amputation: No Fractures: No - *Social History Smoking Status: Never smoker # Packs/Day (cigarettes): 1 #Yrs smoked (if former smoker): 20 Alcohol Intake: never Substance Use Type: denies use *Occupational Status:: other Housing: house Household Members: spouse *Travel in the last 8 weeks: None Family Hx:: Cancer, Stroke, Hypertension, Hyperlipidemia
== END ==
PROVIDERS: PCP Emergency Medicine; Visit Provider Clinical Nurse Specialist Family Health
DX: M51.16 Intervertebral disc disorders with radiculopathy, lumbar region (principal)
CPT/HCPCS: 99212

== ENCOUNTER → 2019-10-10 16:46 | Outpatient (CLI) | payer OTHER, SELFPAY ==
[2019-10-10 19:43] LABS: Amphetamine/Metha Screen,Urine Negative ng/mL (<1000); Barbiturates Screen,Urine Negative ng/mL (<200); Benzodiazepines Screen,Urine Negative ng/mL (<200); Cannabinoid Screen,Urine Negative ng/mL (<50); Cocaine Screen,Urine Negative ng/mL (<300); Methadone Screen,Urine Negative ng/mL (<300); Opiate Screen,Urine Positive ng/mL (<300); Phencyclidine Screen,Urine Negative ng/mL (<25)
== END ==
PROVIDERS: Visit Provider Emergency Medicine
DX: G89.29 Other chronic pain (principal); M54.9 Dorsalgia, unspecified
CPT/HCPCS: 80305

== ENCOUNTER → 2019-12-07 12:47 | Outpatient (CLI) | payer OTHER, SELFPAY ==
[2019-12-08 12:55] LABS: Amphetamine/Metha Screen,Urine Negative ng/mL (<1000); Barbiturates Screen,Urine Negative ng/mL (<200); Benzodiazepines Screen,Urine Negative ng/mL (<200); Cannabinoid Screen,Urine Negative ng/mL (<50); Cocaine Screen,Urine Negative ng/mL (<300); Methadone Screen,Urine Negative ng/mL (<300); Opiate Screen,Urine Positive ng/mL (<300); Phencyclidine Screen,Urine Negative ng/mL (<25)
== END ==
PROVIDERS: Visit Provider Emergency Medicine
DX: Z79.899 Other long term (current) drug therapy (principal)
CPT/HCPCS: 80305

== ENCOUNTER → 2020-02-03 16:41 | Outpatient (CLI) | payer OTHER, SELFPAY ==
[2020-02-03 18:16] LABS: Amphetamine/Metha Screen,Urine Negative ng/ml (<1000); Barbiturates Screen,Urine Negative ng/ml (<200); Benzodiazepines Screen,Urine Negative ng/ml (<200); Cannabinoid Screen,Urine Negative ng/ml (<50); Cocaine Screen,Urine Negative ng/ml (<300); Methadone Screen,Urine Negative ng/ml (<300); Opiate Screen,Urine Negative ng/ml (<300); Phencyclidine Screen,Urine Negative ng/ml (<25)
[2020-02-13 14:28] LABS: Opiates Negative (Cutoff=100)
== END ==
PROVIDERS: Visit Provider Emergency Medicine
DX: Z79.899 Other long term (current) drug therapy (principal)
CPT/HCPCS: 80305; 80361; 80365; G0480

== ENCOUNTER → 2020-04-03 16:45 | Outpatient (CLI) | payer OTHER, SELFPAY ==
[2020-04-03 17:17] LABS: Basophils # 0.1 K/mm3 (0-0.2); Basophils % 0.9 % (0.1-2.0); Eosinophils # 0.2 K/mm3 (0.0-0.4); Eosinophils % 2.2 % (0.1-12.0); Hematocrit 38.8 % (42.0-52.0); Hemoglobin 12.9 g/dL (14.1-18.0); Lymphocytes % 22.7 % (10-50); Mean Corpuscular HGB Conc 33.1 g/dL (31.8-35.4); Mean Corpuscular Hemoglobin 27.9 pg (27.0-31.2); Mean Corpuscular Volume 84.1 fl (80-94); Mean Platelet Volume 7.3 fl (7.4-10.4); Monocytes % 11.9 % (1.7-9.3); Neutrophils # 5.4 K/mm3 (1.8-7.8); Neutrophils % 62.3 % (37.0-80.0); Platelet Count 441 K/mm3 (142-424); Red Blood Count 4.61 M/mm3 (4.60-6.20); Red Cell Distribution Width 15.6 % (11.5-17.5); White Blood Count 8.6 K/mm3 (4.8-10.8)
[2020-04-03 18:03] LABS: Chloride 93 mmol/L (98-107)
[2020-04-03 18:04] LABS: Potassium 3.9 mmoL/L (3.5-5.1); Sodium 134 mmol/L (136-145)
[2020-04-03 18:06] LABS: Alanine Aminotransferase 43 U/L (12-78); Albumin Level 4.5 g/dl (3.5-5.0); Albumin/Globulin Ratio 1.2 (1.1-1.8); Alkaline Phosphatase 126 U/L (38-126); Anion Gap 14.9 mEq/L (5-15); Aspartate Amino Transferase 44 U/L (17-59); Bilirubin,Total 0.8 mg/dl (0.2-1.3); Blood Urea Nitrogen 21 mg/dl (9-20); Carbon Dioxide 30 mmol/L (22.0-30.0); Estimated Glomerular Filt Rate 63 ml/min (>60); GFR (African American) 77 ML/MIN (>60); Globulin 3.9 g/dL (1.3-3.2); Total Protein,Serum 8.4 g/dl (6.3-8.2)
[2020-04-03 18:07] LABS: Calcium 10.1 mg/dl (8.4-10.2); Cholesterol 147 mg/dl (140-200); Glucose 99 mg/dl (74-100); HDL Cholesterol 37 mg/dl (40-60); Triglycerides 85 mg/dl (30-150); VLDL Cholesterol 17 mg/dL (0-40)
[2020-04-03 18:18] LABS: Direct LDL Cholesterol 92.53 mg/dL (100-129)
[2020-04-03 18:25] LABS: T4 (Thyroxine) 10.9 ug/dl (5.53-11.0)
[2020-04-03 18:38] LABS: Thyroid Stimulating Hormone 1.96 uIU/mL (0.465-4.68)
== END ==
PROVIDERS: Visit Provider Emergency Medicine
DX: G89.29 Other chronic pain (principal); Z79.899 Other long term (current) drug therapy
CPT/HCPCS: 80053; 80061; 82652; 84436; 84443; 85025

== ENCOUNTER 2020-04-14 17:51 | Observation (INO) | payer OTHER, SELFPAY ==
[2020-04-14] VITALS (7 sets, daily range): BP systolic 102–131; BP diastolic 59–77; PULSE 65–95; RESP 16; TEMP 36.8; O2SAT 96–98; BMI 30.9; BMI 28.9
--- NOTE | 2020-04-14 17:52 | XR_ITS ---
PROCEDURE: XR CHEST 2V Patient Age:54Y CLINICAL HISTORY: Chest Pain Chest pain since this morning the the the the the COMPARISON: ABDPELW/O CT ABD PELVIS W/O CONTRAST from 02/15/2013 ABDPELW/O CT ABD PELVIS W/O CONTRAST from 03/01/2016 CXR2V XR chest 2V from 03/23/2018 FINDINGS: The lungs are fairly well expanded although not as optimally as on previous 03/23/2018 CXR. (Diaphragm down to the anterior 5th rib today versus anterior 6 rib previously) of this may slightly contribute to the mild accentuation of markings bilaterally Would particularly notice subtle accentuation of lung markings right infrahilar region- question and somewhat suspect of possible subtle infiltrate here at right perihilar region-most notable right infrahilar area towards medial right lung base. ER doctor question atelectasis in these regions which conceivably might be consideration given the less than optimal inspiration. Left lung actually appears clear on and I believe stable but suha and mediastinal structures satisfactory stable. Heart is upper normal in size. Mildly tortuous aorta. Chest wall and T-spine appear satisfactory. No pleural effusion or pneumothorax evident . IMPRESSION: No prominent findings; only minor observations: Question/suspect subtle infiltrate right perihilar region-most evident towards right infrahilar region. . This appearance could be in part due to the less optimal inspiration today which crowds markings but Subtle additional prominence vascular markings, but no CHF Dictated by: Eleazar Solis MD 04/14/2020 20:05 Electronically signed by Eleazar Solis MD in [place] 04/14/2020 20:05
--- NOTE | 2020-04-14 17:52 | ECG_ITS ---
APPROVED REPORT Exam: Resting ECG HR:91 bpm ECG Measurements Heart Rate 91 AXES MO 150 P 44 QRSd 96 QRS -8 QT 384 T 56 QTc 472 <Conclusion> Normal sinus rhythm,Incomplete RBBB Prolonged QT Abnormal ECG Electronically signed by : Sebastian Perez, 04/17/2020 08:47:50
--- NOTE | 2020-04-14 17:54 | HMH.EDGENADL ---
ED Disposition Clinical Impression: Precordial chest pain Disposition: Admitted as Observation Condition on Discharge: Fair Referrals: Provider,Referral, [Referring] - - Critical Care Critical Care Time: No Attestation: On , the high probability of a clinically significant, sudden or life threatening deterioration of the following system(s) required my full and direct attention, intervention and personal management. The time I documented below is in addition to time spent performing reported procedures but includes the following listed in this critical care notation. Medical Decision Making - Francois Inquiry Pt receiving controlled substance: Yes Francois was queried for this patient: No Reason not queried -: Emergent pt cond-no time Risks and benefits of using a controlled substance: were not discussed with pt by me Comment: Patient on chronic pain medicine at home Vital Signs: 04/14/20 17:52 04/14/20 18:48 04/14/20 19:02 Temperature 98.2 F Temperature Source Oral Pulse Rate [Left Radial] 95 H 72 72 Respiratory Rate 16 Blood Pressure [Right Arm] 102/67 L 118/59 L 110/63 Blood Pressure Mean [Right Arm] 78 78 78 Blood Pressure Position [Right Arm] Sitting Sitting 02 Sat by Pulse Oximetry 98 Oxygen Delivery Method Room Air 04/14/20 19:19 Temperature Temperature Source Pulse Rate [Left Radial] 80 Respiratory Rate Blood Pressure [Right Arm] 131/77 Blood Pressure Mean [Right Arm] 95 Blood Pressure Position [Right Arm] Sitting 02 Sat by Pulse Oximetry Oxygen Delivery Method - Lab Data Lab Results 04/14/20 17:56: WBC 10.9 H, RBC 4.55 L, Hgb 13.4 L, Hct 39.6 L, MCV 87.1, MCH 29.5, MCHC 33.9, RDW 15.8, Plt Count 305, MPV 7.9, Neut % (Auto) 76.1, Lymph % (Auto) 13.4, [place] % (Auto) 5.6, Eos % (Auto) 2.2, Baso % (Auto) 2.6 H, Neut # (Auto) 8.3 H, Lymph # (Auto) 1.5, [place] # (Auto) 0.6, Eos # (Auto) 0.2, Baso # (Auto) 0.3 H 04/14/20 17:56: D-Dimer 466 H* 04/14/20 18:23: Sodium 135 L, Potassium 4.3, Chloride 97 L, Carbon Dioxide 32 H, Anion Gap 10.3, BUN 18, Creatinine 1.00, Estimated Creat Clear 129, Estimated GFR 78, Est GFR ( Amer) 95, Glucose 88, Calcium 9.7, Troponin I < 0.01 Result diagrams: 04/14/20 17:56 04/14/20 18:23 Orders (Tests/Meds): ED MEDICATIONS Discontinued Medications Generic Name Dose Route Start Last Admin Trade Name You PRN Reason Stop Dose Admin Aspirin 324 mg 04/14/20 18:48 04/14/20 18:49 Aspirin 81mg Chewable Tablet PO 04/14/20 18:49 324 mg ONCE ONE Administration Ioversol 70 ml 04/14/20 19:14 04/14/20 19:15 Rad-Optiray 350 100ml Vial IV 04/14/20 19:15 70 ml ONCE ONE Administration Protocol Ketorolac Tromethamine 30 mg 04/14/20 18:48 04/14/20 18:49 Toradol 30mg/Ml Vial IV 04/14/20 18:49 30 mg ONCE ONE Administration Morphine Sulfate 4 mg 04/14/20 19:02 04/14/20 19:07 Morphine 4mg/Ml Syringe IV 04/14/20 19:03 4 mg ONCE ONE Administration Ondansetron HCl 4 mg 04/14/20 19:02 04/14/20 19:07 Zofran 4mg/2ml Vial IV 04/14/20 19:03 4 mg ONCE ONE Administration Sodium Chloride 40 ml 04/14/20 19:14 04/14/20 19:15 Rad-Ns 50ml Vial IV 04/14/20 19:15 40 ml ONCE ONE Administration Sodium Chloride 10 ml 04/14/20 19:14 04/14/20 19:15 Rad-Saline Flush 10ml Syringe IV 04/14/20 19:15 10 ml ONCE ONE Administration ORDERS Category Date Time Status CTA Chest [CT angio chest] Stat Cat Scan 04/14/20 18:58 Taken XR chest 2V Stat Exams 04/14/20 17:52 Taken CRP [C-Reactive Protein] Stat Lab 04/14/20 20:02 Ordered Erythrocyte Sedimentation Rate Stat Lab 04/14/20 20:02 Ordered Troponin I Q3H Lab 04/14/20 20:02 Ordered Troponin I Q3H Lab 04/15/20 00:00 Ordered - Radiology Data #1 Image(s): Chest Image Reviewed: Yes I reviewed the patient's radiology image Linear atelectasis in the perihilar areas bilaterally - CT Data CT Scan: Chest (CTA) Time Received:
[2020-04-14 18:06] LABS: Basophils # 0.3 K/mm3 (0-0.2); Basophils % 2.6 % (0.1-2.0); Eosinophils # 0.2 K/mm3 (0.0-0.4); Eosinophils % 2.2 % (0.1-12.0); Hematocrit 39.6 % (42.0-52.0); Hemoglobin 13.4 g/dL (14.1-18.0); Lymphocytes # 1.5 K/mm3 (0.7-4.5); Lymphocytes % 13.4 % (10-50); Mean Corpuscular HGB Conc 33.9 g/dL (31.8-35.4); Mean Corpuscular Hemoglobin 29.5 pg (27.0-31.2); Mean Corpuscular Volume 87.1 fl (80-94); Mean Platelet Volume 7.9 fl (7.4-10.4); Monocytes # 0.6 K/mm3 (0.1-1.0); Monocytes % 5.6 % (1.7-9.3); Neutrophils # 8.3 K/mm3 (1.8-7.8); Neutrophils % 76.1 % (37.0-80.0); Platelet Count 305 K/mm3 (142-424); Red Blood Count 4.55 M/mm3 (4.60-6.20); Red Cell Distribution Width 15.8 % (11.5-17.5); White Blood Count 10.9 K/mm3 (4.8-10.8)
--- NOTE | 2020-04-14 18:10 | PC.NURSE ---
Pt to rad.
[2020-04-14 18:33] LABS: Chloride 97 mmol/L (98-107); Potassium 4.3 mmoL/L (3.5-5.1); Sodium 135 mmol/L (136-145)
[2020-04-14 18:36] LABS: Anion Gap 10.3 mEq/L (5-15); Blood Urea Nitrogen 18 mg/dl (9-20); Carbon Dioxide 32 mmol/L (22.0-30.0); Creatinine Clearance Estimated 129 mL/min (50-200); Estimated Glomerular Filt Rate 78 ml/min (>60); GFR (African American) 95 ML/MIN (>60)
[2020-04-14 18:37] LABS: Calcium 9.7 mg/dl (8.4-10.2); Glucose 88 mg/dl (74-100)
[2020-04-14 18:54] LABS: D-Dimer 466 ng/mL (0-400)
[2020-04-14 18:54] LABS: Troponin I < 0.01 ng/ml (0.00-0.034)
--- NOTE | 2020-04-14 18:54 | PC.NURSE ---
D-Dimer result given to Dr Rivera from lab
--- NOTE | 2020-04-14 18:58 | CT_ITS ---
PROCEDURE: CT ANGIO CHEST Patient Age:54Y CLINCIAL INDICATION: chest pain, elevated d-dimer CT she history the history states nonsmoker COMPARISON: No exams were available for comparison TECHNIQUE: IV Contrast: 70ML OPTIRAY 350 Thin-section helical axial images obtained with thickened axial images as long along with thickened MIP slab sagittal and coronal reformats images performed on independent workstation.. All CT scans at the facility use one or more dose reduction, viz: automated exposure control, ma/kV adjustment per patient size (including targeted exams where dose is matched to indication, i.e. head), or iterative reconstruction technique. FINDINGS: PULMONARY ARTERIES: Good visualization with no pulmonary embolus evident. AORTA: Appears satisfactory. Normal caliber mild tortuous descending aorta.. No thoracic aortic aneurysm or dissection evident. LUNGS: . mild chronic changes. Mild basilar atelectasis. No focal consolidation or acute pneumonia no focal pneumonia. Mild basilar atelectasis . Right lung.:. . Small 5 mm noncalcified pleural base nodule axial image 69, at are mL may merely reflect scarring given its rather linear appearance on sagittal view . 5 mm benign calcified granuloma right lung base Left lung: Small 5.5 mm--6 mm noncalcified lung nodule at the periphery of the left lower lobe axial image 85, coronal 50.. PLEURAL SPACES: No significant effusion. No evidence of pneumothorax. HEART: Unremarkable. Normal heart size. No significant pericardial effusion. MEDIASTINAL AND HILAR STRUCTURES: No mediastinal or hilar mass evident. No dominant adenopathy+. Small calcified nodes at hilar regions on right reflecting old granulomatous disease with associated peripheral granuloma right base BONY STRUCTURES: No acute bony abnormalities apparent. LYMPH NODES: No discrete pathological appearing lymph nodes evident.. There are some generous fat fill nodes towards superior axillary regions along distal numerous small nonspecific less than 1 cm nodes just inferior axillary regions. Chest wall but no obvious rib fractures or lesions. T-spine intact of no osseous fracture or lesions but minimal gynecomastia bilaterally. UPPER ABDOMEN: Spleen normal to upper normal size but cholecystectomy observed. IMPRESSION: No pulmonary embolism evident. No findings to clearly account for the patient's chest pain. No pleural effusions or pleural findings.. No focal consolidation or pneumonia. Mild chronic changes with mild bilateral dependent atelectasis Small unimpressive by far most likely benign lung nodules:. .. Less than 6 mm lung nodule, periphery of left lower lobe. . Small 5 mm nodule pleural-based periphery RML.. . Benign calcified granuloma right lung base with associated small calcified right hilar nodes.Old granulomatous disease If low risk patient (with minimal or absent smoking history) with no other history of neoplasm follow-up at 9--12 months adequate for this smaller sized and character of nodule... If there are risk factors 6-9 month follow-up Perhaps slight increased number of small nodes inferior axillary regions. Nonspecific likely reactive nodes Dictated by: Eleazar Solis MD 04/14/2020 20:55 Electronically signed by Eleazar Solis MD in [place] 04/14/2020 20:55
[2020-04-14 20:26] LABS: C-Reactive Protein 89.5 mg/L (0-4)
[2020-04-14 20:35] LABS: Erythrocyte Sedimentation Rate 62 mm/hr (0-20)
--- NOTE | 2020-04-14 21:13 | PC.NURSE ---
pt arrived to floor from the ED at 2111
[2020-04-14 21:34] LABS: Troponin I < 0.01 ng/ml (0.00-0.034)
[2020-04-15] VITALS (8 sets, daily range): BP systolic 96–114; BP diastolic 60–72; PULSE 60–80; RESP 16–20; TEMP 36.6–36.9; O2SAT 94–98; BMI 29.4
[2020-04-15 00:23] LABS: Troponin I < 0.01 ng/ml (0.00-0.034)
--- NOTE | 2020-04-15 03:42 | PC.NURSE ---
No acute changes since arrival to floor. Pt arrived c/o discomfort to chest that radiated up to arm. Pt was administered medication per jan. No additional complaints voiced. VSS. Pt is NSR with prolonged QT on telemetry. No other concerns at this time. Call light within reach. Will continue to monitor.
--- NOTE | 2020-04-15 10:11 | HMH.HP ---
*Admission Date: 04/15/20 *Chief complaint: chest pain *History of present illness: 54 yr old male presents to ed with c/omidsternal chest pain that radiates to the shoulders, onset at about 10:30 AM. It has been constant since onset. The pain worsens when he bends over and when he breathes. However, he denies being short of breath,nausea or diaphoresis. He denies previous similar pain. Pt states He had a stress test done last year, but states the test was because he was having fevers and night sweats. Pt states Stress test was nondiagnostic and a Myoview stress test was discussed, but he never returned to cardiology to have that done. Pt admitted for chest pain. Cta neg, trop neg, elevated d dimer. Will order echo, antibiotics, r/o pericarditis or endocarditits [facility] History I have reviewed the patient's past medical history: Yes Medical History: Reports:: Gastroesophageal Reflux Disease(GERD), Hyperlipidemia, Hypertension, Kidney Stones Denies:: Cancer, Diabetes Mellitus Type 1, Diabetes Mellitus Type 2, Internal Pacemaker, MRSA *Have you ever received a pneumonia vaccine?: No *Have you received a flu vaccine this season?: No Other Medical History: Reports: Other Other Surgeries: Yes: Cholecystectomy, EGD, Other (lipotripsy). No: Pacemaker Amputation: No Fractures: No - *Social History Educational Level: Completed High School Smoking Status: Never smoker # Packs/Day (cigarettes): 1 #Yrs smoked (if former smoker): 20 Alcohol Intake: never Substance Use Type: denies use *Occupational Status:: employed Housing: apartment Household Members: other *Travel in the last 8 weeks: None Family Hx:: Cancer, Coronary Artery Disease, Hyperlipidemia, Hypertension, Stroke, Thyroid Disorder Review of Systems - Review of Systems Review of systems:: pertinent systems reviewed and negative unless documented below - Constitutional Denies fever(s), Denies weight gain - Eyes Denies blurry vision - ENT Denies pain with swallowing - *Cardiovascular Reports chest pain, Denies shortness of breath, Denies shortness of breath with activity - *Respiratory Denies change in phlegm color - *Gastrointestinal Denies belching, Denies nausea, Denies vomiting - *Genitourinary Denies urinary frequency - Integumentary/Breasts Denies bleeding lesions, Denies rash - *Neurologic Denies abnormal hearing, Denies dizziness - Psychiatric Denies lack of enjoyment - Endocrine Denies excessive sweating - Hematologic/Lymphatic Denies enlarged lymph nodes - Allergic/Immunologic Denies itchy eyes Meds Home Medications Medication Instructions Recorded Confirmed Type losartan 100 1 tab PO DAILY #90 tab 11/07/19 04/15/20 Rx mg-hydrochlorothiazide 25 mg tablet pantoprazole 40 mg tablet,delayed 40 mg PO DAILY #90 tab 12/29/19 04/15/20 Rx release gabapentin 600 mg tablet 900 mg PO TID #135 tab 04/03/20 04/15/20 Rx hydrocodone 5 mg-acetaminophen 325 1 tab PO TID 30 Days #90 tab 04/03/20 04/15/20 Rx mg tablet Aspirin [Aspir 81] 81 mg PO DAILY 04/15/20 04/15/20 History Citalopram Hydrobromide [Celexa] 40 mg PO DAILY 04/15/20 04/15/20 History Simvastatin 20 mg PO HS 04/15/20 04/15/20 History Allergies Allergy/AdvReac Type Severity Reaction Status Date / Time sulfamethoxazole Allergy Unknown Verified 04/03/20 15:41 [From BACTRIM] trimethoprim [From BACTRIM] Allergy Unknown Verified 04/03/20 15:41 Exam Vital signs and Labs for Last 24 Hours: Temp Pulse Resp BP Pulse Ox 98.2 F 71 20 114/61 97 04/15/20 08:00 04/15/20 08:00 04/15/20 08:00 04/15/20 08:00 04/15/20 08:00 Laboratory Results - last 24 hr 04/14/20 17:56: WBC 10.9 H, RBC 4.55 L, Hgb 13.4 L, Hct 39.6 L, MCV 87.1, MCH 29.5, MCHC 33.9, RDW 15.8, Plt Count 305, MPV 7.9, Neut % (Auto) 76.1, Lymph % (Auto) 13.4, [place] % (Auto) 5.6, Eos % (Auto) 2.2, Baso % (Auto) 2.6 H, Neut # (Auto) 8.3 H, Lymph # (Auto) 1.5, [place] # (Auto) 0.6, Eos # (Auto) 0.2,
--- NOTE | 2020-04-15 10:37 | HMH.PHAVTE ---
[facility] Pharmacy VTE Monitoring - Patient Demographics Admission date: 04/15/20 Report Date: 04/15/20 Time: 10:37 Allergies/Adverse Reactions: Patient Allergies sulfamethoxazole [From BACTRIM] Allergy (Unknown, Verified 04/03/20 15:41) trimethoprim [From BACTRIM] Allergy (Unknown, Verified 04/03/20 15:41) Height: 1.85 m Weight: 100.783 kg Patient Problems: Current Active Problems Precordial chest pain (Acute) - VTE Risk Labs: VTE Related Lab Results Hgb 13.4 g/dL (14.1-18.0) L 04/14/20 17:56 Hct 39.6 % (42.0-52.0) L 04/14/20 17:56 Plt Count 305 K/mm3 (142-424) 04/14/20 17:56 BUN 18 mg/dl (9-20) 04/14/20 18:23 Creatinine 1.00 mg/dl (0.66-1.25) 04/14/20 18:23 Estimated Creat Clear 129 mL/min (50-200) 04/14/20 18:23 VTE Score: 4 VTE Risk Level: Low Risk - Prophylaxis Types of VTE Prophylaxis: TEDS Knee High (MEETA HOSE ORDER PLACED) Location of Applied Device: Bilateral Lower Extremeties
[2020-04-15 10:51] LABS: Adenovirus,PCR Not Detected (NotDetected); Bordetella Pertussis Not Detected (NotDetected); Chlamydophila Pneumoniae, PCR Not Detected (NotDetected); Coronavirus 19, PCR Not Detected (NotDetected); Coronavirus 229E Not Detected (NotDetected); Coronavirus NL63 Not Detected (NotDetected); Coronavirus OC43 Not Detected (NotDetected); Coronovirus HKU1,PCR Not Detected (NotDetected); Human Metapneumovirus Not Detected (NotDetected); Influenza A, PCR Not Detected (NotDetected); Influenza AH1, 2009 Not Detected (NotDetected); Influenza AH1, PCR Not Detected (NotDetected); Influenza AH3,PCR Not Detected (NotDetected); Influenza B, PCR Not Detected (NotDetected); Mycoplasma Pneumoniae, PCR Not Detected (NotDected); Parainfluenza 1, PCR Not Detected (NotDetected); Parainfluenza 2, PCR Not Detected (NotDetected); Parainfluenza 3, PCR Not Detected (NotDetected); Parainfluenza 4, PCR Not Detected (NotDetected); Respiratory Syncytial Virus Not Detected (NotDetected); Rhinovirus/Enterovirus Not Detected (NotDetected)
--- NOTE | 2020-04-15 17:42 | PC.NURSE ---
NO ACUTE CHANGES. PT IS INDEPENDENT AND AMBULATORY TO BATHROOM. PAIN MEDS ADMINISTER PER JAN. PT STATES CHEST PAIN IS A DULL ACHE AND NOT SHARP AND THAT IT HAS IMPROVED THIS SHIFT OVERALL. SAFETY MEASURES IN PLACE, WILL CONTINUE TO MONITOR
[2020-04-16] VITALS (8 sets, daily range): BP systolic 104–123; BP diastolic 55–79; PULSE 60–98; RESP 16–22; TEMP 36.6–36.7; O2SAT 92–97; BMI 29.8
--- NOTE | 2020-04-16 03:49 | PC.NURSE ---
A&OX4. PT TOLERATING RA WELL THIS SHIFT. PT STATED AT THE BEGINNING OF SHIFT THAT HE WAS HAVING PAIN IN THE CENTER OF HIS CHEST, ESPECIALLY WHEN TAKING A DEEP BREATH. PT RECEIVED PAIN MEDS PER JAN, ON REASSESSMENT, PT RESTING IN BED. PT HAS HAD NO FURTHER COMPLAINTS OF CP THIS SHIFT THUS FAR. PT RECEIVED ANTIBIOTICS THIS SHIFT PER JAN. UP INDEPENDENTLY IN ROOM. PT NSR ON TELE. VSS WILL CONTINUE TO MONITOR.
[2020-04-16 06:51] LABS: Basophils # 0.1 K/mm3 (0-0.2); Basophils % 0.8 % (0.1-2.0); Eosinophils % 0.2 % (0.1-12.0); Hematocrit 37.3 % (42.0-52.0); Hemoglobin 12.6 g/dL (14.1-18.0); Lymphocytes # 0.7 K/mm3 (0.7-4.5); Lymphocytes % 9.9 % (10-50); Mean Corpuscular HGB Conc 33.8 g/dL (31.8-35.4); Mean Corpuscular Hemoglobin 29.6 pg (27.0-31.2); Mean Corpuscular Volume 87.4 fl (80-94); Mean Platelet Volume 7.4 fl (7.4-10.4); Monocytes # 0.1 K/mm3 (0.1-1.0); Monocytes % 1.6 % (1.7-9.3); Neutrophils # 6.5 K/mm3 (1.8-7.8); Neutrophils % 87.5 % (37.0-80.0); Platelet Count 290 K/mm3 (142-424); Red Blood Count 4.27 M/mm3 (4.60-6.20); Red Cell Distribution Width 15.7 % (11.5-17.5); White Blood Count 7.5 K/mm3 (4.8-10.8)
[2020-04-16 06:55] LABS: Chloride 96 mmol/L (98-107); Potassium 4.3 mmoL/L (3.5-5.1); Sodium 135 mmol/L (136-145)
[2020-04-16 06:58] LABS: Anion Gap 11.3 mEq/L (5-15); Blood Urea Nitrogen 19 mg/dl (9-20); Carbon Dioxide 32 mmol/L (22.0-30.0); Creatinine Clearance Estimated 124 mL/min (50-200); Estimated Glomerular Filt Rate 78 ml/min (>60); GFR (African American) 95 ML/MIN (>60)
[2020-04-16 06:59] LABS: Calcium 9.6 mg/dl (8.4-10.2); Glucose 196 mg/dl (74-100)
[2020-04-16 07:01] LABS: MANUAL DIFFERENTIAL MANUAL DIFFERENTIAL (MANUAL DIFF)
[2020-04-16 07:39] LABS: Eosinophils % 1 % (0-3); Lymphocytes % 13 % (10-50); Monocytes % 2 % (2-9); Neutrophils % 84 % (42-76); Platelet Estimate Normal; RBC Morphology Normal; Total Cells Counted 100
[2020-04-16 08:38] LABS: Tobramycin,Random 1.8 ug/ml
--- NOTE | 2020-04-16 08:53 | HMH.ACPN2 ---
Internal Medicine - PN: Subj *Date: 04/17/20 *Time: 12:06 Interval history: feels some better - on abx - Exam Vital signs and Labs for Last 24 Hours: Temp Pulse Resp BP Pulse Ox 97.8 F 79 16 113/78 97 04/16/20 08:00 04/16/20 08:00 04/16/20 08:00 04/16/20 08:00 04/16/20 08:00 Laboratory Results - last 24 hr 04/15/20 10:40: Chlamy pneumoniae PCR Not detected, Adenovirus (PCR) Not detected, B. pertussis DNA (PCR) Not detected, Coronavirus OC43 (PCR) Not detected, Coronavirus HKU1 (PCR) Not detected, Coronavirus 229E (PCR) Not detected, COVID-19 PCR Not detected, Coronavirus NL63 (PCR) Not detected, Human Metapneumovir PCR Not detected, Influenza A (H1) PCR Not detected, Influ A (H1N1/09) PCR Not detected, Influenza A (H3) PCR Not detected, Influenza Type A (PCR) Not detected, Influenza Type B (PCR) Not detected, M. pneumoniae (PCR) Not detected, Parainfluenza 1 (PCR) Not detected, Parainfluenza 2 (PCR) Not detected, Parainfluenza 3 (PCR) Not detected, Parainfluenza 4 (PCR) Not detected, RSV (PCR) Not detected, Entero/Rhino (PCR) Not detected 04/16/20 00:55: Random Tobramycin 7.0 04/16/20 06:10: WBC 7.5 D, RBC 4.27 L, Hgb 12.6 L, Hct 37.3 L, MCV 87.4, MCH 29.6, MCHC 33.8, RDW 15.7, Plt Count 290, MPV 7.4, Neut % (Auto) 87.5 H, Lymph % (Auto) 9.9 L, [place] % (Auto) 1.6 L, Eos % (Auto) 0.2, Baso % (Auto) 0.8, Neut # (Auto) 6.5, Lymph # (Auto) 0.7, [place] # (Auto) 0.1, Eos # (Auto) 0.0, Baso # (Auto) 0.1, Total Counted 100, Neutrophils % (Manual) 84 H, Lymphocytes % (Manual) 13, Monocytes % (Manual) 2, Eosinophils % (Manual) 1, Platelet Estimate Normal, RBC Morphology Normal 04/16/20 06:10: Sodium 135 L, Potassium 4.3, Chloride 96 L, Carbon Dioxide 32 H, Anion Gap 11.3, BUN 19, Creatinine 1.00, Estimated Creat Clear 124, Estimated GFR 78, Est GFR ( Amer) 95, Glucose 196 H, Calcium 9.6 04/16/20 08:00: Random Tobramycin 1.8 I & O for Last 24 hours: Intake & Output 04/13/20 04/14/20 04/15/20 04/16/20 11:59 11:59 11:59 11:59 Intake Total 1240 / 1240 830 / 830 Output Total 300 / 300 Balance 940 / 940 830 / 830 Weight 222 lb 3 oz 225 lb 6 oz - Constitutional no acute distress - *Routine HEENT Exam Head: Present: normocephalic Eye: Present: EOMI, PERRL ENT: Present: mucous membranes dry - *Routine Neck Exam Present: supple - *Routine Respiratory Exam Present: CTA bilaterally - *Routine Cardiovascular Exam Present: RRR. Absent: murmur, rubs - *Routine Abdominal Exam Present: soft - *Routine Extremities Exam Absent: calf tenderness - *Routine Skin Exam Present: intact - *Routine Neurological Exam Present: alert, CN II-XII intact - Routine Psychiatric Exam Present: normal affect Assessment and Plan (1) Elevated C-reactive protein (CRP) Current visit: Yes Status: Acute Category: Medical Code(s): R79.82 - Elevated C-reactive protein (CRP) (2) Precordial chest pain Current visit: Yes Status: Acute Category: Medical Code(s): R07.2 - Precordial pain (3) Chest pain Current visit: No Status: Acute Qualifiers: Chest pain type: other chest pain Qualified Code(s): R07.89 - Other chest pain; R07.8 - Other chest pain Category: Medical Code(s): R07.9 - Chest pain, unspecified (4) Obesity (BMI 30.0-34.9) Current visit: No Status: Acute Category: Medical Code(s): E66.9 - Obesity, unspecified
[2020-04-16 09:24] LABS: Hemoglobin A1C 5.7 % (4.0-6.0)
--- NOTE | 2020-04-16 14:51 | P.CONPHA_ITS ---
- Pharmacy Consult Date: 04/16/20 Time: 14:51 Referring provider: DR. CHAIDEZ Reason for Consult:: VANCOMYCIN AND TOBRAMYCIN DOSING Allergies and ADEs:: Allergies Allergy/AdvReac Type Severity Reaction Status Date / Time sulfamethoxazole Allergy Unknown Verified 04/03/20 15:41 [From BACTRIM] trimethoprim [From BACTRIM] Allergy Unknown Verified 04/03/20 15:41 Home Medications:: Home Medications Medication Instructions Recorded Confirmed Type losartan 100 1 tab PO DAILY #90 tab 11/07/19 04/15/20 Rx mg-hydrochlorothiazide 25 mg tablet pantoprazole 40 mg tablet,delayed 40 mg PO DAILY #90 tab 12/29/19 04/15/20 Rx release gabapentin 600 mg tablet 900 mg PO TID #135 tab 04/03/20 04/15/20 Rx hydrocodone 5 mg-acetaminophen 325 1 tab PO TID 30 Days #90 tab 04/03/20 04/15/20 Rx mg tablet Aspirin [Aspir 81] 81 mg PO DAILY 04/15/20 04/15/20 History Citalopram Hydrobromide [Celexa] 40 mg PO DAILY 04/15/20 04/15/20 History Simvastatin 20 mg PO HS 04/15/20 04/15/20 History Height: 1.85 m Weight: 102.228 kg Laboratory Results:: Laboratory Results - last 24 hr 04/16/20 00:55: Random Tobramycin 7.0 04/16/20 06:10: WBC 7.5 D, RBC 4.27 L, Hgb 12.6 L, Hct 37.3 L, MCV 87.4, MCH 29.6, MCHC 33.8, RDW 15.7, Plt Count 290, MPV 7.4, Neut % (Auto) 87.5 H, Lymph % (Auto) 9.9 L, [place] % (Auto) 1.6 L, Eos % (Auto) 0.2, Baso % (Auto) 0.8, Neut # (Auto) 6.5, Lymph # (Auto) 0.7, [place] # (Auto) 0.1, Eos # (Auto) 0.0, Baso # (Auto) 0.1, Total Counted 100, Neutrophils % (Manual) 84 H, Lymphocytes % (Manual) 13, Monocytes % (Manual) 2, Eosinophils % (Manual) 1, Platelet Estimate Normal, RBC Morphology Normal 04/16/20 06:10: Sodium 135 L, Potassium 4.3, Chloride 96 L, Carbon Dioxide 32 H, Anion Gap 11.3, BUN 19, Creatinine 1.00, Estimated Creat Clear 124, Estimated GFR 78, Est GFR ( Amer) 95, Glucose 196 H, Calcium 9.6 04/16/20 06:10: Hemoglobin A1c 5.7 04/16/20 08:00: Random Tobramycin 1.8 Medical History: Reports:: Gastroesophageal Reflux Disease(GERD), Hyperlipidemia, Hypertension, Kidney Stones Denies:: Cancer, Diabetes Mellitus Type 1, Diabetes Mellitus Type 2, Internal Pacemaker, MRSA Assessment and Plan (1) Elevated C-reactive protein (CRP) Current visit: Yes Status: Acute Category: Medical Code(s): R79.82 - Elevated C-reactive protein (CRP) (2) Precordial chest pain Current visit: Yes Status: Acute Category: Medical Code(s): R07.2 - Precordial pain (3) Chest pain Current visit: No Status: Acute Qualifiers: Chest pain type: other chest pain Qualified Code(s): R07.89 - Other chest pain; R07.8 - Other chest pain Category: Medical Code(s): R07.9 - Chest pain, unspecified - Assessment and plan all Dx Assessment and Plan for all problems:: BASED ON PATIENT FACTORS, RECOMMEND INITIATING VANCOMYCIN AT 2,000MG IV EVERY 12 HOURS AND TOBRAMYCIN AT 480MG IV EVERY 24 HOURS. WILL OBTAIN VANCOMYCIN TROUGH LEVEL PRIOR TO FOURTH DOSE AND TOBRAMYCIN RANDOM LEVELS AT 4 AND 12 HOUR POST- INFUSION. PHARMACY WILL THEN ADJUST DOSE APPROPRIATE. -ASHELY MENDOZA PHARMD
--- NOTE | 2020-04-16 14:53 | P.CONPHA_ITS ---
- Pharmacy Consult Date: 04/16/20 Time: 14:53 Referring provider: DR. CHAIDEZ Reason for Consult:: TOBRAMYCIN LEVELS AND DOSE CHANGE Allergies and ADEs:: Allergies Allergy/AdvReac Type Severity Reaction Status Date / Time sulfamethoxazole Allergy Unknown Verified 04/03/20 15:41 [From BACTRIM] trimethoprim [From BACTRIM] Allergy Unknown Verified 04/03/20 15:41 Home Medications:: Home Medications Medication Instructions Recorded Confirmed Type losartan 100 1 tab PO DAILY #90 tab 11/07/19 04/15/20 Rx mg-hydrochlorothiazide 25 mg tablet pantoprazole 40 mg tablet,delayed 40 mg PO DAILY #90 tab 12/29/19 04/15/20 Rx release gabapentin 600 mg tablet 900 mg PO TID #135 tab 04/03/20 04/15/20 Rx hydrocodone 5 mg-acetaminophen 325 1 tab PO TID 30 Days #90 tab 04/03/20 04/15/20 Rx mg tablet Aspirin [Aspir 81] 81 mg PO DAILY 04/15/20 04/15/20 History Citalopram Hydrobromide [Celexa] 40 mg PO DAILY 04/15/20 04/15/20 History Simvastatin 20 mg PO HS 04/15/20 04/15/20 History Height: 1.85 m Weight: 102.228 kg Laboratory Results:: Laboratory Results - last 24 hr 04/16/20 00:55: Random Tobramycin 7.0 04/16/20 06:10: WBC 7.5 D, RBC 4.27 L, Hgb 12.6 L, Hct 37.3 L, MCV 87.4, MCH 29.6, MCHC 33.8, RDW 15.7, Plt Count 290, MPV 7.4, Neut % (Auto) 87.5 H, Lymph % (Auto) 9.9 L, [place] % (Auto) 1.6 L, Eos % (Auto) 0.2, Baso % (Auto) 0.8, Neut # (Auto) 6.5, Lymph # (Auto) 0.7, [place] # (Auto) 0.1, Eos # (Auto) 0.0, Baso # (Auto) 0.1, Total Counted 100, Neutrophils % (Manual) 84 H, Lymphocytes % (Manual) 13, Monocytes % (Manual) 2, Eosinophils % (Manual) 1, Platelet Estimate Normal, RBC Morphology Normal 04/16/20 06:10: Sodium 135 L, Potassium 4.3, Chloride 96 L, Carbon Dioxide 32 H, Anion Gap 11.3, BUN 19, Creatinine 1.00, Estimated Creat Clear 124, Estimated GFR 78, Est GFR ( Amer) 95, Glucose 196 H, Calcium 9.6 04/16/20 06:10: Hemoglobin A1c 5.7 04/16/20 08:00: Random Tobramycin 1.8 Medical History: Reports:: Gastroesophageal Reflux Disease(GERD), Hyperlipidemia, Hypertension, Kidney Stones Denies:: Cancer, Diabetes Mellitus Type 1, Diabetes Mellitus Type 2, Internal Pacemaker, MRSA Assessment and Plan (1) Elevated C-reactive protein (CRP) Current visit: Yes Status: Acute Category: Medical Code(s): R79.82 - Elevated C-reactive protein (CRP) (2) Precordial chest pain Current visit: Yes Status: Acute Category: Medical Code(s): R07.2 - Precordial pain (3) Chest pain Current visit: No Status: Acute Qualifiers: Chest pain type: other chest pain Qualified Code(s): R07.89 - Other chest pain; R07.8 - Other chest pain Category: Medical Code(s): R07.9 - Chest pain, unspecified - Assessment and plan all Dx Assessment and Plan for all problems:: BASED ON PATIENT FACTORS AND TOBRAMYCIN LEVELS (3-HOUR=7.0 CMAX-9.83) (11- HOUR 1.8 CMIN-0.20), RECOMMEND INCREASING DOSE SLIGHTLY TO 540MG Q24H. PHARMACY WILL CONTINUE TO MONITOR AND WILL ADJUST DOSE APPROPRIATE. -DAVID CHAWLAD
--- NOTE | 2020-04-16 18:06 | PC.NURSE ---
Has slept for short intervals this shift. Remains on room air. NSR on tely. Has c/o pain once this shift, in which he was medicated per JAN. Has ambulated in hallway w/ this shift along w/ taking shower. Tolerates activity well. No needs voiced at this time. Will continue to monitor.
--- NOTE | 2020-04-16 19:17 | PC.NURSE ---
report given to shante
[2020-04-17] VITALS: PULSE 60
[2020-04-17 04:00] VITALS: BP 115/71; PULSE 58; PULSE 60; RESP 20; TEMP 36.6; O2SAT 95
--- NOTE | 2020-04-17 04:08 | PC.NURSE ---
Pt is A&Ox3 and has ambulated independently t/o shift and tolerated well. Pt has c/o pain several times this shift, medicated per MAR. Pt has also also several questions about pain med options and asks, When can I have my demerol? . pt educated on current ordered medications and Why am I not on demerol? . Pt asks further questions after education of Dilaudid and asks, How much of this would it take to OD? . Pt questioned further and denies any attempt of self harm, but it curious d/t some previous reports of people OD'ing by mixing it with bars of pain meds . Pt assured that it is not mixed with bars of pain meds by staff and IV medications are only administered that are ordered by . TEDs refused by pt. Lungs CTA. ABD is soft, non-tender with active bowel sounds. Pt reports last BM was several days ago and states it is normal for him to have 1 BMx week. Pt denies taking any prescription medication or OTC supplements to aid bowel habits. Pt does report usage of daily opioids for chronic pain. VSS, call light within reach, will continue to monitor.
[2020-04-17 05:39] VITALS: BMI 30.2
[2020-04-17 07:40] VITALS: BP 112/58; PULSE 52; RESP 18; TEMP 36.6; O2SAT 95
[2020-04-17 08:00] VITALS: PULSE 52
--- NOTE | 2020-04-17 09:56 | CA_ITS ---
APPROVED REPORT EXAM: Comprehensive 2D, Doppler, and color-flow Echocardiogram Roll Clamp Operator: An Richards CRT Ht: 6 ft 0 in Wt: 222lbs BSA: 2.23 BP: 114/61 mmHg Indications: cp, edema, htn, hld, gerd, M-Mode Dimensions RVDd 2.93 cm (0.9-2.6) LVDd 5.95 cm (3.5-5.7) LVDs 3.70 cm (3.5-5.7) IVSd 1.18 cm (0.6-1.1) PWd 0.72 cm (0.6-1.1) EF (Teich) 67.10% FS 37.80% EDV (Teich) 176.60 mL ESV (Teich) 58.10 mL LV Diastology E/A Ratio 1.38 Mitral Valve MV A Velocity 65.00 (40-130 cm/s) Left Ventricle Left atrium is mildly enlarged, left ventricle is normal size, mild concentric left ventricular hypertrophy, visually estimated ejection fraction 55% with no regional wall motion abnormality. Grade 1 diastolic dysfunction seen with tissue Doppler evidence of raise left atrial pressure. Right Ventricle Right atrium and right ventricle are normal size and contractility. Aortic Valve Aortic valve is minimally thickened and fibrosed. There is no aortic stenosis or aortic insufficiency. Mitral Valve Mitral valve is grossly normal, there is mild mitral regurgitation. Tricuspid Valve Tricuspid valve is grossly normal, there is mild tricuspid regurgitation, tricuspid regurgitation jet velocity is inadequate for calculation of the right ventricular systolic pressure. Pulmonic Valve Pulmonic valve is poorly visualized. Great Vessels Aortic root is normal size. Pericardium No significant pericardial effusion noted. Conclusion 1. Mildly enlarged left atrium, normal left ventricular size, mild concentric left ventricular hypertrophy, visually estimated ejection fraction 55% with no regional wall motion abnormality, grade 1 diastolic dysfunction seen with tissue Doppler evidence of raise left atrial pressure. 2. Mild mitral and tricuspid regurgitation. 3. No significant pericardial effusion noted. Electronically signed by : Andrei Murphy, 04/17/2020 18:59:36
[2020-04-17 10:37] LABS: Vancomycin,Trough 12.6 ug/mL (5.0-10.0)
[2020-04-17 11:24] VITALS: BP 109/71; PULSE 54; RESP 18; TEMP 36.6; O2SAT 96
[2020-04-17 12:00] VITALS: PULSE 60
--- NOTE | 2020-04-17 12:11 | HMH.DCSUM ---
General - General Admission date:: 04/14/20 Discharge date: 04/17/20 HPI HPI: 54 yr old male presents to ed with c/omidsternal chest pain that radiates to the shoulders, onset at about 10:30 AM. It has been constant since onset. The pain worsens when he bends over and when he breathes. However, he denies being short of breath,nausea or diaphoresis. He denies previous similar pain. Pt states He had a stress test done last year, but states the test was because he was having fevers and night sweats. Pt states Stress test was nondiagnostic and a Myoview stress test was discussed, but he never returned to cardiology to have that done. Pt admitted for chest pain. Cta neg, trop neg, elevated d dimer. Will order echo, antibiotics, r/o pericarditis or endocarditits Hospital Course Hospital Course: pt has had slow improvement in hospital on abx - he has neg blood culture and neg cardiac echo and negative serial cardica enz- chest pain improved and had nl activity level and tolerated diet - will see pt as outpatient and obtain myoview stress test - will follow inflammation markers also Objective Vital signs: Temp Pulse Resp BP Pulse Ox 97.8 F 54 L 18 109/71 L 96 04/17/20 11:24 04/17/20 11:24 04/17/20 11:24 04/17/20 11:24 04/17/20 11:24 no acute distress, obese - *Routine HEENT Exam Head: Present: normocephalic Eye: Present: EOMI, PERRL ENT: Present: mucous membranes moist - *Routine Neck Exam Present: supple, full ROM. Absent: JVD - *Routine Respiratory Exam Present: CTA bilaterally - *Routine Cardiovascular Exam Present: RRR. Absent: murmur, gallop, rubs - *Routine Abdominal Exam Present: soft - *Routine Extremities Exam Absent: calf tenderness - *Routine Skin Exam Present: intact - *Routine Neurological Exam Present: alert, oriented X3, CN II-XII intact - Routine Psychiatric Exam Present: normal affect Results Labs on day of discharge: Labs from last 24 hours 04/17/20 09:55 Vancomycin Trough 12.6 H DS: Diagnosis - Discharge Diagnosis (1) Elevated C-reactive protein (CRP) Status: Acute (2) Precordial chest pain Status: Acute (3) Chest pain Status: Acute (4) Obesity (BMI 30.0-34.9) Status: Acute Discharge Plan - Patient Discharge Instructions ACTIVITY: Continue current activity DIET: continue same diet Patient Instructions: DI for Chest Pain - Follow up Plan Disposition: Home, Self-Residential Medications: Home Medications Medication Instructions Recorded Confirmed Type losartan 100 1 tab PO DAILY #90 tab 11/07/19 04/15/20 Rx mg-hydrochlorothiazide 25 mg tablet pantoprazole 40 mg tablet,delayed 40 mg PO DAILY #90 tab 12/29/19 04/15/20 Rx release gabapentin 600 mg tablet 900 mg PO TID #135 tab 04/03/20 04/15/20 Rx hydrocodone 5 mg-acetaminophen 325 1 tab PO TID 30 Days #90 tab 04/03/20 04/15/20 Rx mg tablet Aspirin [Aspir 81] 81 mg PO DAILY 04/15/20 04/15/20 History Citalopram Hydrobromide [Celexa] 40 mg PO DAILY 04/15/20 04/15/20 History Simvastatin 20 mg PO HS 04/15/20 04/15/20 History cephALEXin [Keflex 500mg Cap] 500 mg PO TID #30 cap 04/17/20 Rx Prescriptions/Medication Reconciliation: New Aspirin [Aspirin 81mg EC Tab] 81 mg PO DAILY #0 tablet. Citalopram Hydrobromide [Celexa 40mg Tablet] 40 mg PO DAILY tablet Pravastatin Sodium [Pravachol 40mg Tablet] 40 mg PO HS tablet cephALEXin [Keflex 500mg Cap] 500 mg PO TID #30 cap Continued pantoprazole 40 mg tablet,delayed release 40 mg PO DAILY #90 tab hydrocodone 5 mg-acetaminophen 325 mg tablet 1 tab PO TID 30 Days #90 tab losartan 100 mg-hydrochlorothiazide 25 mg tablet 1 tab PO DAILY #90 tab gabapentin 600 mg tablet 900 mg PO TID #135 tab Citalopram Hydrobromide [Celexa] 40 mg PO DAILY Aspirin [Aspir 81] 81 mg PO DAILY Simvastatin 20 mg PO HS - Problem Reconciliation Problems Reviewed?: Yes
--- NOTE | 2020-04-17 13:35 | HMH.PHACONS ---
- Pharmacy Consult Date: 04/17/20 Time: 13:35 Referring provider: DR. CHAIDEZ Reason for Consult:: VANCOMYCIN TROUGH LEVEL Allergies and ADEs:: Allergies Allergy/AdvReac Type Severity Reaction Status Date / Time sulfamethoxazole Allergy Unknown Verified 04/03/20 15:41 [From BACTRIM] trimethoprim [From BACTRIM] Allergy Unknown Verified 04/03/20 15:41 Home Medications:: Home Medications Medication Instructions Recorded Confirmed Type losartan 100 1 tab PO DAILY #90 tab 11/07/19 04/15/20 Rx mg-hydrochlorothiazide 25 mg tablet pantoprazole 40 mg tablet,delayed 40 mg PO DAILY #90 tab 12/29/19 04/15/20 Rx release gabapentin 600 mg tablet 900 mg PO TID #135 tab 04/03/20 04/15/20 Rx hydrocodone 5 mg-acetaminophen 325 1 tab PO TID 30 Days #90 tab 04/03/20 04/15/20 Rx mg tablet Aspirin [Aspir 81] 81 mg PO DAILY 04/15/20 04/15/20 History Citalopram Hydrobromide [Celexa] 40 mg PO DAILY 04/15/20 04/15/20 History Simvastatin 20 mg PO HS 04/15/20 04/15/20 History cephALEXin [Keflex 500mg Cap] 500 mg PO TID #30 cap 04/17/20 Rx Height: 1.85 m Weight: 103.646 kg Laboratory Results:: Laboratory Results - last 24 hr 04/17/20 09:55: Vancomycin Trough 12.6 H Medical History: Reports:: Gastroesophageal Reflux Disease(GERD), Hyperlipidemia, Hypertension, Kidney Stones Denies:: Cancer, Diabetes Mellitus Type 1, Diabetes Mellitus Type 2, Internal Pacemaker, MRSA Assessment and Plan (1) Elevated C-reactive protein (CRP) Current visit: Yes Status: Acute Category: Medical Code(s): R79.82 - Elevated C-reactive protein (CRP) (2) Precordial chest pain Current visit: Yes Status: Acute Category: Medical Code(s): R07.2 - Precordial pain (3) Chest pain Current visit: No Status: Acute Qualifiers: Chest pain type: other chest pain Qualified Code(s): R07.89 - Other chest pain; R07.8 - Other chest pain Category: Medical Code(s): R07.9 - Chest pain, unspecified (4) Obesity (BMI 30.0-34.9) Current visit: No Status: Acute Category: Medical Code(s): E66.9 - Obesity, unspecified - Assessment and plan all Dx Assessment and Plan for all problems:: BASED ON PATIENT'S TROUGH LEVEL FOR VANCOMYCIN OF 12.6 MCG/ML THIS AM, RECOMMEND CONTINUING WITH VANCOMYCIN 2 GM Q12H AT THIS TIME. PHARMACY WILL FOLLOW DAILY AND ADJUST APPROPRIATE.
== END 2020-04-17 14:10 | disposition home or self-care (01) ==
LOC: ER 20:05 → 2ND 21:26
PROVIDERS: Nurse Practitioner Family; Admitting Provider Internal Medicine Adolescent Medicine; Emergency Provider Emergency Medicine; PCP Emergency Medicine; Visit Provider Emergency Medicine
DX: R07.9 Chest pain, unspecified (principal); I10 Essential (primary) hypertension; E78.5 Hyperlipidemia, unspecified; Z79.899 Other long term (current) drug therapy; Z79.82 Long term (current) use of aspirin; Z88.2 Allergy status to sulfonamides
CPT/HCPCS: 36415; 71046; 71275; 80048; 80200; 80202; 83036; 84484; 85007; 85025; 85378; 85651; 86140; 87040; 87581; 87633; 87798; 93005; 93306; 96365; 96375; 96376; 99284; G0378; J2405; J3370; Q9967

== ENCOUNTER 2020-04-30 14:46 | Inpatient (IN) | payer OTHER, SELFPAY ==
[2020-04-30] VITALS (7 sets, daily range): BP systolic 86–127; BP diastolic 51–79; PULSE 65–76; RESP 11–22; TEMP 36.5–36.9; O2SAT 93–98; BMI 29.7; BMI 29.3
--- NOTE | 2020-04-30 14:43 | XR_ITS ---
PROCEDURE: XR CHEST PORTABLE CLINICAL HISTORY: WEAKNESS, FATIGUE Pain, weakness, fatigue COMPARISON: CXR2V XR chest 2V from 03/23/2018 CT ANGIO CHEST from 04/14/2020 XR CHEST 2V from 04/14/2020 CT ANGIO CHEST from 04/30/2020 FINDINGS: Mild cardiomegaly. The lungs are clear without infiltrates, suspicious nodules, or pleural effusions. No acute bony abnormalities. IMPRESSION: No acute findings. Dictated by: Balta Avilez MD 04/30/2020 17:15 Electronically signed by Balta Avilez MD in [place] 04/30/2020 17:15
--- NOTE | 2020-04-30 14:52 | CT_ITS ---
PROCEDURE: CT ANGIO CHEST CLINCIAL INDICATION: Back pain that radiates to neck Severe back pain radiating into the neck with hypotension, elevated D-dimer COMPARISON: CT ANGIO CHEST from 04/14/2020 TECHNIQUE: IV Contrast: 50ML OPTIRAY 350 Axial images obtained with sagittal and coronal reformats. All CT scans at the facility use one or more dose reduction, viz: automated exposure control, ma/kV adjustment per patient size (including targeted exams where dose is matched to indication, i.e. head), or iterative reconstruction technique. Pre CT screening demonstrated elevated creatinine of 2.3 with a GFR 30. Discussion was performed with Dr. Burleson As to the necessity of contrast enhancement. He voiced a moderate suspicion of thoracic aortic dissection clinically which would carry a grim prognosis if diagnosis was not made early. Benefits and risks were evaluated and it was decided to give IV contrast at a lower dose. Instruction was given to vigorously hydrate before and after the exam. FINDINGS: HEART AND MEDIASTINAL STRUCTURES: No evidence of aortic aneurysm or dissection. Pulmonary arteries are not well opacified. LUNGS AND PLEURAL SPACES: There are scattered calcified and noncalcified nodules with a 5 mm noncalcified nodule in the left lower lobe, 5 mm subpleural nodule left lower lobe, 4 mm noncalcified nodule right upper lobe. No effusions. No acute bony findings. BONY STRUCTURES: No acute bony abnormalities apparent. UPPER ABDOMEN: Unremarkable. ADDITIONAL FINDINGS: Gynecomastia IMPRESSION: 1. No acute finding. No evidence of aortic aneurysm or dissection 2. Bilateral pulmonary nodules. Recommend six-month follow-up Dictated by: Balta Avilez MD 04/30/2020 18:20 Electronically signed by Balta Avilez MD in [place] 04/30/2020 18:20
[2020-04-30 14:58] LABS: Basophils # 0.1 K/mm3 (0-0.2); Basophils % 0.7 % (0.1-2.0); Eosinophils # 0.2 K/mm3 (0.0-0.4); Eosinophils % 3.7 % (0.1-12.0); Hematocrit 36.5 % (42.0-52.0); Hemoglobin 12.4 g/dL (14.1-18.0); Lymphocytes # 1.5 K/mm3 (0.7-4.5); Lymphocytes % 22.4 % (10-50); Mean Corpuscular Hemoglobin 29.8 pg (27.0-31.2); Mean Corpuscular Volume 87.7 fl (80-94); Mean Platelet Volume 7.4 fl (7.4-10.4); Monocytes # 0.5 K/mm3 (0.1-1.0); Monocytes % 6.9 % (1.7-9.3); Neutrophils # 4.3 K/mm3 (1.8-7.8); Neutrophils % 66.2 % (37.0-80.0); Platelet Count 478 K/mm3 (142-424); Red Blood Count 4.16 M/mm3 (4.60-6.20); Red Cell Distribution Width 15.1 % (11.5-17.5); White Blood Count 6.5 K/mm3 (4.8-10.8)
--- NOTE | 2020-04-30 15:01 | ECG_ITS ---
APPROVED REPORT Exam: Resting ECG HR:71 bpm ECG Measurements Heart Rate 71 AXES UT 164 P 39 QRSd 102 QRS -4 QT 462 T 26 QTc 502 <Conclusion> Sinus rhythm with occasional premature ventricular complexes Incomplete RBBB Prolonged QT Abnormal ECG Electronically signed by : Sebastian Perez, 05/01/2020 13:16:06
[2020-04-30 15:09] LABS: Chloride 95 mmol/L (98-107); Sodium 139 mmol/L (136-145)
[2020-04-30 15:11] LABS: Alanine Aminotransferase 36 U/L (12-78); Aspartate Amino Transferase 36 U/L (17-59); Blood Urea Nitrogen 35 mg/dl (9-20); Creatinine Clearance Estimated 54 mL/min (50-200); Estimated Glomerular Filt Rate 30 ml/min (>60); GFR (African American) 36 ML/MIN (>60)
[2020-04-30 15:12] LABS: Albumin Level 4.4 g/dl (3.5-5.0); Alkaline Phosphatase 193 U/L (38-126); Bilirubin,Total 0.7 mg/dl (0.2-1.3); Calcium 9.9 mg/dl (8.4-10.2); Carbon Dioxide 32 mmol/L (22.0-30.0); Globulin 4.2 g/dL (1.3-3.2); Glucose 113 mg/dl (74-100); Total Protein,Serum 8.6 g/dl (6.3-8.2)
[2020-04-30 15:13] LABS: Lactic Acid 1.3 mmol/L (0.7-2.1)
--- NOTE | 2020-04-30 15:38 | CT_ITS ---
Procedure: CT ANGIO ABDOMEN PELVIS CLINICAL HISTORY: Hypotention Back pain with hypotension, evaluate for aneurysm COMPARISON: ABDPELW/O CT ABD PELVIS W/O CONTRAST from 03/01/2016 TECHNIQUE: IV Contrast: 50 mL Optiray 350. Please see chest CT for further description and caveots Axial images obtained with sagittal and coronal reformats. All CT scans at the facility use one or more dose reduction, viz: automated exposure control, ma/kV adjustment per patient size (including targeted exams where dose is matched to indication, i.e. head), or iterative reconstruction technique. FINDINGS: The liver, adrenal glands, and pancreas have an unremarkable appearance. There are few small peripancreatic and periportal lymph nodes. No renal or ureteral calculi. No hydronephrosis. No intestinal obstruction or free air. Unremarkable appendix. No evidence diverticulitis. The no pelvic mass or abnormal fluid collection. There are post cholecystectomy changes. Borderline splenomegaly at 13 cm No acute bony findings. No evidence of aortic aneurysm or dissection. The celiac and SMA are unremarkable. The ADOLFO is patent. IMPRESSION: No evidence of aortic aneurysm or dissection. Scattered small mesenteric and periportal lymph nodes Borderline splenomegaly Dictated by: Balta Avilez MD 04/30/2020 18:27 Electronically signed by Balta Avilez MD in [place] 04/30/2020 18:27
[2020-04-30 15:39] LABS: Troponin I < 0.01 ng/ml (0.00-0.034)
[2020-04-30 15:48] LABS: Microscopic, Urine URINE MICROSCOPIC (MICROSCOPIC)
[2020-04-30 15:51] LABS: Appearance,Urine CLEAR (Clear); Bilirubin,Urine Negative (Negative); Blood, Urine Negative (Negative); Color,Urine YELLOW (Yellow); Glucose,Urine (UA) Negative (Negative); Ketones,Urine Negative (Negative); Leukocyte Esterase,Urine Negative (Negative); Nitrate,Urine Negative (Negative); PH,Urine 5.5 (5.0-8.5); Protein,Urine TRACE (Negative); Specific Gravity, Urine 1.025 (1.005-1.030)
[2020-04-30 15:54] LABS: Bacteria,Urine Trace /lpf; Squamous Epithelial Cell,Urine Occasional #/hpf (0-5); WBC,Urine Occasional #/hpf (0-3)
--- NOTE | 2020-04-30 16:02 | PC.NURSE ---
pt taken to ct
[2020-04-30 16:06] LABS: D-Dimer 2480 ng/mL (0-400)
--- NOTE | 2020-04-30 16:27 | PC.NURSE ---
speaking to Dr De Luna
--- NOTE | 2020-04-30 16:33 | HMH.EDGENADL ---
ED Disposition Clinical Impression: Acute kidney injury Hypotension Qualifiers: Hypotension type: unspecified hypotension type Qualified Code(s): I95.9 - Hypotension, unspecified Disposition: Admitted as Observation Condition on Discharge: [facility] - Critical Care Critical Care Time: No Attestation: On 04/30/20, the high probability of a clinically significant, sudden or life threatening deterioration of the following system(s) required my full and direct attention, intervention and personal management. The time I documented below is in addition to time spent performing reported procedures but includes the following listed in this critical care notation. Medical Decision Making - Francois Inquiry Pt receiving controlled substance: No Francois was queried for this patient: No Vital Signs: 04/30/20 14:34 04/30/20 15:30 04/30/20 16:00 Temperature 98.4 F Temperature Source Oral Pulse Rate Pulse Rate [Right Radial] 76 65 66 Respiratory Rate 22 14 18 Blood Pressure Blood Pressure [Right Arm] 93/62 L 86/51 L 92/57 L Blood Pressure Mean [Right Arm] 72 62 68 Blood Pressure Source [Right Arm] Automatic Cuff Blood Pressure Position [Right Arm] Sitting 02 Sat by Pulse Oximetry 97 95 98 Oxygen Delivery Method Room Air 04/30/20 16:25 04/30/20 17:02 04/30/20 17:36 Temperature Temperature Source Pulse Rate Pulse Rate [Right Radial] 66 65 Respiratory Rate 11 L 13 Blood Pressure Blood Pressure [Right Arm] 93/61 L 95/62 L Blood Pressure Mean [Right Arm] 71 73 Blood Pressure Source [Right Arm] Automatic Cuff Blood Pressure Position [Right Arm] Supine 02 Sat by Pulse Oximetry 98 93 L Oxygen Delivery Method Room Air Room Air 04/30/20 17:53 Temperature 98 F Temperature Source Pulse Rate 67 Pulse Rate [Right Radial] Respiratory Rate 12 Blood Pressure 105/64 L Blood Pressure [Right Arm] Blood Pressure Mean [Right Arm] Blood Pressure Source [Right Arm] Blood Pressure Position [Right Arm] 02 Sat by Pulse Oximetry Oxygen Delivery Method - Lab Data Lab Results 04/30/20 14:46: WBC 6.5, RBC 4.16 L, Hgb 12.4 L, Hct 36.5 L, MCV 87.7, MCH 29.8, MCHC 34.0, RDW 15.1, Plt Count 478 H, MPV 7.4, Neut % (Auto) 66.2, Lymph % (Auto) 22.4, [place] % (Auto) 6.9, Eos % (Auto) 3.7, Baso % (Auto) 0.7, Neut # (Auto) 4.3, Lymph # (Auto) 1.5, [place]eman # (Auto) 0.5, Eos # (Auto) 0.2, Baso # (Auto) 0.1 04/30/20 14:46: Sodium 139, Potassium 4.0, Chloride 95 L, Carbon Dioxide 32 H, Anion Gap 16.0 H, BUN 35 H, Creatinine 2.30 H, Estimated Creat Clear 54, Estimated GFR 30 L, Est GFR ( Amer) 36 L, Glucose 113 H, Calcium 9.9, Total Bilirubin 0.7, AST 36, ALT 36, Alkaline Phosphatase 193 H, Troponin I < 0.01, Total Protein 8.6 H, Albumin 4.4, Globulin 4.2 H, Albumin/Globulin Ratio 1.0 L 04/30/20 14:46: Lactate 1.3 04/30/20 14:46: D-Dimer 2480 H* 04/30/20 15:45: Urine Color Yellow, Urine Appearance Clear, Urine pH 5.5, Ur Specific [place] 1.025, Urine Protein Trace, Urine Glucose (UA) Negative, Urine Ketones Negative, Urine Blood Negative, Urine Nitrate Negative, Urine Bilirubin Negative, Urine Urobilinogen 2.0, Ur Leukocyte Esterase Negative, Urine WBC Occasional, Ur Squamous Epith Cells Occasional, Urine Bacteria Trace Result diagrams: 04/30/20 14:46 04/30/20 14:46 Orders (Tests/Meds): ED MEDICATIONS Generic Name Dose Route Start Last Admin Trade Name You PRN Reason Stop Dose Admin Hydrocodone Bitart/Acetaminophen 1 tab 04/30/20 21:00 04/30/20 21:10 [place] 5/325mg Tablet PO 05/30/20 20:59 1 tab TID DELON Administration Gabapentin 900 mg 04/30/20 21:00 04/30/20 21:10 Neurontin 300mg Capsule PO 05/30/20 20:59 900 mg TID DELON Administration Lactated Ringer's 1,000 mls @ 75 mls/hr 04/30/20 18:07 04/30/20 18:25 Lactated Ringer's 1000 Ml Bag IV 05/30/20 18:06 75 mls/hr .[id number] DELON Administration Discontinued Medications Generic Name Dose Route Start Last Admin T
--- NOTE | 2020-04-30 17:31 | PC.NURSE ---
Report given to Mala
[2020-04-30 19:02] LABS: C-Reactive Protein 79.9 mg/L (0-4)
[2020-04-30 19:11] LABS: Troponin I < 0.01 ng/ml (0.00-0.034)
--- NOTE | 2020-04-30 19:13 | PC.NURSE ---
report given to jennifer
[2020-04-30 20:35] LABS: Erythrocyte Sedimentation Rate 131 mm/hr (0-20)
--- NOTE | 2020-04-30 20:58 | HMH.HP ---
*Admission Date: 04/30/20 *Chief complaint: back pain *History of present illness: this wm with upper back pain over the last few days - no prod cough and no reported fever - he tried to go to work but felt bad - he had recent admit - pt was seen in the ed -Patient is a 54-year-old male with a past medical history significant for recent admission to the hospital for unexplained back and chest pain, re-presents for similar symptoms. Patient states after being discharged he never significantly improved, and starting today patient experienced back pain which she states radiates up to his neck, and significant weakness. Patient brought to the emergency department by EMS for further evaluation. Patient denies recent fevers, chills, chest pain, shortness of breath, abdominal pain, or dysuria at this time. summary the patient is an ill appearing 54 year old male presenting to the emergency department for evaluation of back pain with radiation to his neck, as well as significant fatigue and generalized malaise. Patient is hypotensive on initial presentation concerning for significant pathology. Differential diagnosis includes but is not limited to ACS, acute heart failure, aortic dissection, aneurysm, or tamponade from pericardial effusion. Side ultrasound used and showed patient to have decreased ejection fraction, but no evidence of arterial effusion, or fluid in patient's abdomen. Patient's IVC was stiff decreasing believe that patient is suffering from hypovolemic shock. His labs returned significant for elevated d-dimer greater than 2000. ETA chest, and CT abdomen pelvis ordered. EKG showed normal sinus rhythm, no ST elevation, depression, or QT prolongation was noted. Patient's initial troponin shows no elevation. Patient's CTA of chest and Pelvis negative for acute pathology. After 2L of fluid the patient's MAP are sustained above 65. Given this pressors not needed. Dr. De Luna consulted and has agreed to admit [facility] History I have reviewed the patient's past medical history: Yes Medical History: Reports:: Gastroesophageal Reflux Disease(GERD), Hyperlipidemia, Hypertension, Kidney Stones Denies:: Cancer, Diabetes Mellitus Type 1, Diabetes Mellitus Type 2, Internal Pacemaker, MRSA *Have you ever received a pneumonia vaccine?: No *Have you received a flu vaccine this season?: No Other Medical History: Reports: Other Other Surgeries: Yes: Cholecystectomy, EGD, Other (lipotripsy). No: Pacemaker Amputation: No Fractures: No - *Social History Smoking Status: Never smoker # Packs/Day (cigarettes): 1 #Yrs smoked (if former smoker): 20 Alcohol Intake: never Substance Use Type: denies use *Occupational Status:: employed Housing: apartment Household Members: spouse, children *Travel in the last 8 weeks: None Family Hx:: Cancer, Coronary Artery Disease, Hyperlipidemia, Hypertension, Stroke, Thyroid Disorder Review of Systems - Review of Systems Review of systems:: pertinent systems reviewed and negative unless documented below - Constitutional Reports weakness, Denies fever(s) - Eyes Denies change in vision - ENT Denies sore throat - *Cardiovascular Reports chest pain, Reports shortness of breath, Denies radiating jaw, neck or arm pain - *Respiratory Denies cough - *Gastrointestinal Denies abdominal pain - *Genitourinary Denies blood in urine - *Musculoskeletal Reports back pain, Denies joint pain - Integumentary/Breasts Denies rash - *Neurologic Denies confusion, Denies localized weakness, Denies headache(s), Denies seizure-like activity - Psychiatric Denies depression Meds Home Medications Medication Instructions Recorded Confirmed Type losartan 100 1 tab PO DAILY #90 tab 11/07/19 04/30/20 Rx mg-hydrochlorothiazide 25 mg tablet gabapentin 600 mg tablet 900 mg PO TID #135 tab 04/03/20 04/30/20 Rx hydrocodone 5 mg-acetaminophen 325 1 tab PO TID 30 Days #90 tab 04/03/20 04/30/20 Rx mg tablet Citalop
[2020-04-30 21:03] LABS: Troponin I < 0.01 ng/ml (0.00-0.034)
[2020-04-30 21:09] LABS: Creatine Kinase 34 U/L (55-170)
[2020-04-30 23:43] LABS: Troponin I < 0.01 ng/ml (0.00-0.034)
[2020-05-01 04:00] VITALS: BP 122/68; PULSE 59; RESP 19; TEMP 36.9; O2SAT 96
--- NOTE | 2020-05-01 04:56 | PC.NURSE ---
PT. HAS C/O SHOULDER/BACK PAIN X1; TX WITH MORPHINE PER MAR; EFFECTIVENESS REPORTED. PT. HAS NOT C/O N/V/D, SOA OR DIZZINESS THIS SHIFT.
[2020-05-01 05:00] VITALS: BMI 28.8
[2020-05-01 06:16] LABS: Basophils # 0.1 K/mm3 (0-0.2); Basophils % 0.9 % (0.1-2.0); Eosinophils # 0.2 K/mm3 (0.0-0.4); Eosinophils % 3.9 % (0.1-12.0); Hematocrit 36.8 % (42.0-52.0); Hemoglobin 11.9 g/dL (14.1-18.0); Lymphocytes # 1.8 K/mm3 (0.7-4.5); Lymphocytes % 34.3 % (10-50); Mean Corpuscular HGB Conc 32.4 g/dL (31.8-35.4); Mean Corpuscular Hemoglobin 29.1 pg (27.0-31.2); Mean Corpuscular Volume 89.7 fl (80-94); Mean Platelet Volume 7.2 fl (7.4-10.4); Monocytes # 0.3 K/mm3 (0.1-1.0); Monocytes % 5.8 % (1.7-9.3); Neutrophils # 2.8 K/mm3 (1.8-7.8); Platelet Count 417 K/mm3 (142-424); Red Cell Distribution Width 15.4 % (11.5-17.5); White Blood Count 5.1 K/mm3 (4.8-10.8)
[2020-05-01 06:43] LABS: Chloride 99 mmol/L (98-107); Sodium 138 mmol/L (136-145)
[2020-05-01 06:44] LABS: Potassium 4.1 mmoL/L (3.5-5.1)
[2020-05-01 06:46] LABS: Alanine Aminotransferase 31 U/L (12-78); Albumin Level 3.8 g/dl (3.5-5.0); Alkaline Phosphatase 189 U/L (38-126); Anion Gap 10.1 mEq/L (5-15); Aspartate Amino Transferase 39 U/L (17-59); Bilirubin,Total 0.4 mg/dl (0.2-1.3); Blood Urea Nitrogen 24 mg/dl (9-20); Calcium 9.3 mg/dl (8.4-10.2); Carbon Dioxide 33 mmol/L (22.0-30.0); Creatinine Clearance Estimated 102 mL/min (50-200); Estimated Glomerular Filt Rate 63 ml/min (>60); GFR (African American) 77 ML/MIN (>60); Globulin 3.9 g/dL (1.3-3.2); Glucose 122 mg/dl (74-100); Total Protein,Serum 7.7 g/dl (6.3-8.2)
[2020-05-01 08:00] VITALS: BP 123/70; PULSE 90; TEMP 36.9; O2SAT 94
[2020-05-01 08:47] VITALS: RESP 16
--- NOTE | 2020-05-01 09:59 | HMH.PHAVTE ---
[facility] Pharmacy VTE Monitoring - Patient Demographics Admission date: 04/30/20 Report Date: 05/01/20 Time: 09:59 Allergies/Adverse Reactions: Patient Allergies sulfamethoxazole [From BACTRIM] Allergy (Unknown, Verified 04/19/20 13:49) trimethoprim [From BACTRIM] Allergy (Unknown, Verified 04/19/20 13:49) Height: 1.85 m Weight: 98.656 kg Patient Problems: Current Active Problems Acute kidney injury (Acute) Hypotension (Acute) Elevated erythrocyte sedimentation rate (Acute) Elevated d-dimer (Acute) - VTE Risk Labs: VTE Related Lab Results Hgb 11.9 g/dL (14.1-18.0) L 05/01/20 05:46 Hct 36.8 % (42.0-52.0) L 05/01/20 05:46 Plt Count 417 K/mm3 (142-424) 05/01/20 05:46 BUN 24 mg/dl (9-20) H D 05/01/20 05:46 Creatinine 1.20 mg/dl (0.66-1.25) D 05/01/20 05:46 Estimated Creat Clear 102 mL/min (50-200) 05/01/20 05:46 VTE Score: 2 - Prophylaxis VTE Prophylaxis Ordered?: Yes Types of VTE Prophylaxis: TEDS Knee High Location of Applied Device: Bilateral Lower Extremeties
--- NOTE | 2020-05-01 11:57 | HMH.CNCARD ---
History of Present Illness Consult date: 05/01/20 Requesting physician: Juanito De Luna Consult reason: chest pain Chief complaint: chest pain, back pain Additional Medical History:: 1. HTN A. Echo, 03/2019 and 03/2020. Mild LAE, normal LV size, mild conc LVH, EF 55% without WMA, grade I DD. Mild MR/TR 2. Chest pain A. Stress test, 03/2019, non-diagnostic despite 9 min with no CP with 10.1 METS of activity. Did not reach THR (only reached 82% of target HR) B. 04/2020,CTA of chest, No aortic aneurysm or dissection. 3. Hyperlipidemia 4. GERD 5. Elevated ESR, CRP and D-dimer, 03/2020-04/2020 A. CTA of chest, no aortic aneurysm or dissection B. SAMANTHA, lupus panel and RF pending C. Bone scan pending History of present illness: this wm with upper back pain over the last few days - no prod cough and no reported fever - he tried to go to work but felt bad - he had recent admit - pt was seen in the ed -Patient is a 54-year-old male with a past medical history significant for recent admission to the hospital for unexplained back and chest pain, re-presents for similar symptoms. Patient states after being discharged he never significantly improved, and starting today patient experienced back pain which he states radiates up to his neck, and significant weakness. Patient brought to the emergency department by EMS for further evaluation. Patient denies recent fevers, chills, chest pain, shortness of breath, abdominal pain, or dysuria at this time. summary the patient is an ill appearing 54 year old male presenting to the emergency department for evaluation of back pain with radiation to his neck, as well as significant fatigue and generalized malaise. Patient is hypotensive on initial presentation concerning for significant pathology. Differential diagnosis includes but is not limited to ACS, acute heart failure, aortic dissection, aneurysm, or tamponade from pericardial effusion. Bed Side ultrasound used and showed patient to have decreased ejection fraction, but no evidence of arterial effusion, or fluid in patient's abdomen. Patient's IVC was stiff decreasing believe that patient is suffering from hypovolemic shock. His labs returned significant for elevated d-dimer greater than 2000. CTA chest, and CT abdomen pelvis ordered. EKG showed normal sinus rhythm, no ST elevation, depression, or QT prolongation was noted. Patient's initial troponin shows no elevation. Patient's CTA of chest and Pelvis negative for acute pathology. After 2L of fluid the patient's MAP are sustained above 65. Given this pressors not needed. Dr. De Luna consulted and has agreed to admit The above is from PCP H&P. Pt denies history of CAD. Sister had CABG in her late 60's. He is a Non-smoker chest pain has been worse with breathing or movement. No history of trauma or radiation therapy. Back pain radiates to neck and into arms with some associated headache recently. Symptoms have been persistent in varying degrees for several weeks. History of bulging discs in lumbar region for which he is seeing pain management for over a year. No history of spinal injections. [facility] History Medical History: Reports:: Gastroesophageal Reflux Disease(GERD), Hyperlipidemia, Hypertension, Kidney Stones Denies:: Cancer, Diabetes Mellitus Type 1, Diabetes Mellitus Type 2, Internal Pacemaker, MRSA *Have you ever received a pneumonia vaccine?: No *Have you received a flu vaccine this season?: No Other Medical History: Reports: Other Other Surgeries: Yes: Cholecystectomy, EGD, Other (lipotripsy). No: Pacemaker Amputation: No Fractures: No - *Social History Smoking Status: Never smoker # Packs/Day (cigarettes): 1 #Yrs smoked (if former smoker): 20 Alcohol Intake: never Substance Use Type: denies use *Occupational Status:: employed Housing: apartment Household Members: spouse, children *Travel in the last 8 weeks: None Family Hx:: Cancer, Coronary Artery Disease, H
[2020-05-01 14:16] LABS: Erythrocyte Sedimentation Rate 94 mm/hr (0-20)
[2020-05-01 14:17] LABS: C-Reactive Protein 60.4 mg/L (0-4)
[2020-05-01 14:43] LABS: Prostate Specific Ag, Diagnost 0.597 ng/ml (0.0-4.0)
[2020-05-01 16:00] VITALS: BP 126/74; PULSE 77; TEMP 36.9; O2SAT 97
[2020-05-01 16:08] LABS: D-Dimer 1610 ng/mL (0-400)
--- NOTE | 2020-05-01 17:47 | PC.NURSE ---
Did make Dr Rivers aware of pts elevated d dimer of 1610 at 1713, although it is lower than yesterday. NNO given. Pt also c/o of pain in back and rated 7/10. Did make Ezequiel Leiva APRN aware of this at 1513 and he stated he would speak with Dr. De Luna in re to this. Pt has been made aware and had no further c/o. Will cont to mx this shift. VSS at this time.
--- NOTE | 2020-05-01 18:02 | HMH.ACPN2 ---
Internal Medicine - PN: Subj *Date: 05/01/20 *Time: 08:35 Interval history: 54 YOM sitting up in bed, reports back pain is better and he denies CP or SOA at present. Exam Vital signs and Labs for Last 24 Hours: Temp Pulse Resp BP Pulse Ox 98.4 F 77 16 126/74 97 05/01/20 16:00 05/01/20 16:00 05/01/20 08:47 05/01/20 16:00 05/01/20 16:00 Laboratory Results - last 24 hr 04/30/20 18:17: ESR 131 H 04/30/20 18:17: Troponin I < 0.01, C-Reactive Protein 79.9 H 04/30/20 20:32: Troponin I < 0.01 04/30/20 20:32: Total Creatine Kinase 34 L 04/30/20 23:16: Troponin I < 0.01 05/01/20 05:46: WBC 5.1, RBC 4.10 L, Hgb 11.9 L, Hct 36.8 L, MCV 89.7, MCH 29.1, MCHC 32.4, RDW 15.4, Plt Count 417, MPV 7.2 L, Neut % (Auto) 55.0, Lymph % (Auto) 34.3, [place] % (Auto) 5.8, Eos % (Auto) 3.9, Baso % (Auto) 0.9, Neut # (Auto) 2.8, Lymph # (Auto) 1.8, [place] # (Auto) 0.3, Eos # (Auto) 0.2, Baso # (Auto) 0.1 05/01/20 05:46: Sodium 138, Potassium 4.1, Chloride 99, Carbon Dioxide 33 H, Anion Gap 10.1, BUN 24 H D, Creatinine 1.20 D, Estimated Creat Clear 102, Estimated GFR 63, Est GFR ( Amer) 77 D, Glucose 122 H, Calcium 9.3, Total Bilirubin 0.4, AST 39, ALT 31, Alkaline Phosphatase 189 H, Total Protein 7.7, Albumin 3.8 D, Globulin 3.9 H, Albumin/Globulin Ratio 1.0 L 05/01/20 13:30: ESR 94 H 05/01/20 13:30: D-Dimer 1610 H* 05/01/20 13:30: C-Reactive Protein 60.4 H, Prostate Specific Ag 0.597 I & O for Last 24 hours: Intake & Output 04/28/20 04/29/20 04/30/20 05/01/20 23:59 23:59 23:59 23:59 Intake Total 1999 Balance 1999 Weight 222 lb 8 oz 217 lb 8 oz - Constitutional no acute distress - *Routine HEENT Exam Head: Present: normocephalic. Absent: scalp tenderness Eye: Present: normal accommodation ENT: Present: mucous membranes moist. Absent: sinus tenderness - *Routine Neck Exam Present: full ROM, trachea midline. Absent: tracheal deviation - *Routine Respiratory Exam Present: CTA bilaterally. Absent: accessory muscle use - *Routine Cardiovascular Exam Present: RRR - *Routine Abdominal Exam Present: soft, normoactive bowel sounds. Absent: tenderness, firm - *Routine Extremities Exam Present: full ROM, pulses intact. Absent: cyanosis, edema - Routine Back/Spine/Pelvis Exam Back/Spine: Present: full ROM. Absent: CVA tenderness - *Routine Skin Exam Present: intact, dry, warm. Absent: cyanosis, erythema - *Routine Neurological Exam Present: alert, oriented X3, moving all extremities. Absent: altered mental status - Routine Psychiatric Exam Present: normal affect, normal thought process. Absent: auditory hallucinations Assessment and Plan (1) Acute kidney injury Current visit: Yes Status: Acute Category: Medical Code(s): N17.9 - Acute kidney failure, unspecified (2) Hypotension Current visit: Yes Status: Acute Qualifiers: Hypotension type: unspecified hypotension type Qualified Code(s): I95.9 - Hypotension, unspecified Category: Medical Code(s): I95.9 - Hypotension, unspecified (3) Elevated C-reactive protein (CRP) Current visit: No Status: Acute Category: Medical Code(s): R79.82 - Elevated C-reactive protein (CRP) (4) Overweight (BMI 25.0-29.9) Current visit: No Status: Acute Category: Medical Code(s): E66.3 - Overweight (5) Weakness Current visit: No Status: Acute Category: Medical Code(s): R53.1 - Weakness (6) Back Pain Current visit: No Status: Chronic Qualifiers: Back pain location: thoracic back pain Chronicity: acute Back pain laterality: bilateral Qualified Code(s): M54.6 - Pain in thoracic spine Category: Medical Code(s): M54.9 - Dorsalgia, unspecified (7) Elevated erythrocyte sedimentation rate Current visit: Yes Status: Acute Category: Medical Code(s): R70.0 - Elevated erythrocyte sedimentation rate (8) Elevated d-dimer Current visit: Yes Status
[2020-05-01 19:39] VITALS: BP 113/76; PULSE 72; RESP 16; TEMP 37; O2SAT 98
--- NOTE | 2020-05-01 21:22 | PC.NURSE ---
Patient encouraged to take shower and have bed linens changed. He stated he would like to wait until his comes in the morning and will at that time; passed on to patient's nurse.
[2020-05-02 04:00] VITALS: BP 119/78; PULSE 68; RESP 16; TEMP 36.7; O2SAT 97
[2020-05-02 05:54] VITALS: BMI 28.5
[2020-05-02 06:19] LABS: Chloride 101 mmol/L (98-107); Potassium 4.3 mmoL/L (3.5-5.1); Sodium 138 mmol/L (136-145)
[2020-05-02 06:22] LABS: Anion Gap 10.3 mEq/L (5-15); Blood Urea Nitrogen 19 mg/dl (9-20); Calcium 9.4 mg/dl (8.4-10.2); Carbon Dioxide 31 mmol/L (22.0-30.0); Creatinine Clearance Estimated 118 mL/min (50-200); Estimated Glomerular Filt Rate 78 ml/min (>60); GFR (African American) 95 ML/MIN (>60); Glucose 110 mg/dl (74-100)
[2020-05-02 06:29] LABS: Basophils # 0.1 K/mm3 (0-0.2); Basophils % 1.1 % (0.1-2.0); Eosinophils # 0.2 K/mm3 (0.0-0.4); Eosinophils % 3.3 % (0.1-12.0); Hematocrit 34.9 % (42.0-52.0); Hemoglobin 11.6 g/dL (14.1-18.0); Lymphocytes % 36.8 % (10-50); Mean Corpuscular HGB Conc 33.4 g/dL (31.8-35.4); Mean Corpuscular Hemoglobin 29.9 pg (27.0-31.2); Mean Corpuscular Volume 89.4 fl (80-94); Mean Platelet Volume 7.5 fl (7.4-10.4); Monocytes # 0.3 K/mm3 (0.1-1.0); Monocytes % 5.2 % (1.7-9.3); Neutrophils % 53.7 % (37.0-80.0); Platelet Count 363 K/mm3 (142-424); Red Cell Distribution Width 15.3 % (11.5-17.5); White Blood Count 5.5 K/mm3 (4.8-10.8)
[2020-05-02 08:00] VITALS: BP 122/74; PULSE 72; RESP 18; TEMP 36.6; O2SAT 97
--- NOTE | 2020-05-02 08:10 | HMH.PNCARD ---
Subjective Date: 05/02/20 Time: 08:10 Principal diagnosis: back pain, chest pain Interval history: 54-year-old white male in bed in no acute distress. Patient keeps his eyes closed during interview. He denies any chest pain. He does have some continued back pain. Exam Vital signs and Labs for Last 24 Hours: Temp Pulse Resp BP Pulse Ox 98.0 F 68 16 119/78 97 05/02/20 04:00 05/02/20 04:00 05/02/20 04:00 05/02/20 04:00 05/02/20 04:00 Laboratory Results - last 24 hr 05/01/20 13:30: ESR 94 H 05/01/20 13:30: D-Dimer 1610 H* 05/01/20 13:30: C-Reactive Protein 60.4 H, Prostate Specific Ag 0.597 05/02/20 05:42: WBC 5.5, RBC 3.90 L, Hgb 11.6 L, Hct 34.9 L, MCV 89.4, MCH 29.9, MCHC 33.4, RDW 15.3, Plt Count 363, MPV 7.5, Neut % (Auto) 53.7, Lymph % (Auto) 36.8, [place] % (Auto) 5.2, Eos % (Auto) 3.3, Baso % (Auto) 1.1, Neut # (Auto) 3.0, Lymph # (Auto) 2.0, [place] # (Auto) 0.3, Eos # (Auto) 0.2, Baso # (Auto) 0.1 05/02/20 05:42: Sodium 138, Potassium 4.3, Chloride 101, Carbon Dioxide 31 H, Anion Gap 10.3, BUN 19, Creatinine 1.00, Estimated Creat Clear 118, Estimated GFR 78, Est GFR ( Amer) 95 D, Glucose 110 H, Calcium 9.4 I & O for Last 24 hours: Intake & Output 04/29/20 04/30/20 05/01/20 05/02/20 11:59 11:59 11:59 11:59 Intake Total 3454 / 3454 1945 Balance 3454 / 3454 1945 Weight 217 lb 8 oz 215 lb 1 oz - *Routine HEENT Exam Head: Present: normocephalic Eye: Present: EOMI, PERRL ENT: Present: mucous membranes moist - *Routine Respiratory Exam Present: CTA bilaterally. Absent: accessory muscle use, rales, rhonchi, wheezes - *Routine Cardiovascular Exam Present: RRR. Absent: murmur, gallop, rubs - *Routine Extremities Exam Absent: edema, calf tenderness - *Routine Neurological Exam Present: alert, oriented X3, moving all extremities Progress Note: A&P (1) Acute kidney injury Status: Acute Current Visit: Yes (2) Hypotension Status: Acute Current Visit: Yes (3) Elevated C-reactive protein (CRP) Status: Acute Current Visit: No (4) Overweight (BMI 25.0-29.9) Status: Acute Current Visit: No (5) Weakness Status: Acute Current Visit: No (6) Back Pain Status: Chronic Current Visit: No (7) Elevated erythrocyte sedimentation rate Status: Acute Current Visit: Yes (8) Elevated d-dimer Status: Acute Current Visit: Yes (9) Chest pain Status: Acute Current Visit: No Assessment and Plan for All Diagnoses:: 1. Elevated sed rate and CRP with bone scan pending this morning. 2. SAMANTHA, lupus and RF factors pending. 3. Hypotension, resolved 4. Acute renal insufficiency, resolved Further recommendations to follow. Will have Dr. GILBERT review echo to decide on need for CAMERON.
--- NOTE | 2020-05-02 12:00 | NM_ITS ---
PROCEDURE: NM BONE SCAN WHOLE BODY CLINICAL INDICATION: elevated ESR, CRP Elevated enzymes COMPARISON: No exams were available for comparison TECHNIQUE: Dose: 25.5 mCi technetium MDP FINDINGS: Nonspecific activity noted at the sternoclavicular joints, the right lower costal sternal region, knees and proximal fibula, and shoulders. Initially there was a focus of increased activity overlying the proximal femur. This was not reproducible on the repeat image with the patient's garment off IMPRESSION: Nonspecific periarticular activity. Otherwise negative. No convincing evidence of metastatic disease Dictated by: Balta Avilez MD 05/02/2020 16:08 Electronically signed by Balta Avilez MD in [facility] 05/02/2020 16:08
--- NOTE | 2020-05-02 15:09 | HMH.ACPN2 ---
Internal Medicine - PN: Subj *Date: 05/02/20 *Time: 09:05 Interval history: 54 YOM sitting up in bed, denies any pain during night. Explained need for CAMERON, he verbalized understanding. Exam Vital signs and Labs for Last 24 Hours: Temp Pulse Resp BP Pulse Ox 97.8 F 72 18 122/74 97 05/02/20 08:00 05/02/20 08:00 05/02/20 08:00 05/02/20 08:00 05/02/20 08:00 Laboratory Results - last 24 hr 05/01/20 13:30: D-Dimer 1610 H* 05/02/20 05:42: WBC 5.5, RBC 3.90 L, Hgb 11.6 L, Hct 34.9 L, MCV 89.4, MCH 29.9, MCHC 33.4, RDW 15.3, Plt Count 363, MPV 7.5, Neut % (Auto) 53.7, Lymph % (Auto) 36.8, [place] % (Auto) 5.2, Eos % (Auto) 3.3, Baso % (Auto) 1.1, Neut # (Auto) 3.0, Lymph # (Auto) 2.0, [place] # (Auto) 0.3, Eos # (Auto) 0.2, Baso # (Auto) 0.1 05/02/20 05:42: Sodium 138, Potassium 4.3, Chloride 101, Carbon Dioxide 31 H, Anion Gap 10.3, BUN 19, Creatinine 1.00, Estimated Creat Clear 118, Estimated GFR 78, Est GFR ( Amer) 95 D, Glucose 110 H, Calcium 9.4 I & O for Last 24 hours: Intake & Output 04/29/20 04/30/20 05/01/20 05/02/20 23:59 23:59 23:59 23:59 Intake Total 1999 / 2516 1363 / 1363 Balance 1999 1363 / 1363 Weight 222 lb 8 oz 217 lb 8 oz 215 lb 1 oz Microbiology Reports for the Last 24 Hours: Microbiology 04/30/20 14:46 Blood Blood Culture - Preliminary NO GROWTH AFTER 48 HOURS 04/30/20 14:46 Blood Blood Culture - Preliminary NO GROWTH AFTER 48 HOURS - Constitutional no acute distress - *Routine HEENT Exam Head: Present: normocephalic Eye: Absent: periorbital swelling ENT: Present: mucous membranes moist - *Routine Neck Exam Present: full ROM, trachea midline. Absent: JVD, tracheal deviation - *Routine Respiratory Exam Present: CTA bilaterally. Absent: accessory muscle use - *Routine Cardiovascular Exam Present: RRR - *Routine Abdominal Exam Present: soft, normoactive bowel sounds. Absent: tenderness - *Routine Extremities Exam Present: full ROM, pulses intact. Absent: cyanosis, tenderness - *Routine Skin Exam Present: intact, dry, warm. Absent: cyanosis - *Routine Neurological Exam Present: alert, oriented X3. Absent: altered mental status - Routine Psychiatric Exam Present: normal affect, normal thought process Assessment and Plan (1) Acute kidney injury Current visit: Yes Status: Acute Category: Medical Code(s): N17.9 - Acute kidney failure, unspecified (2) Hypotension Current visit: Yes Status: Acute Qualifiers: Hypotension type: unspecified hypotension type Qualified Code(s): I95.9 - Hypotension, unspecified Category: Medical Code(s): I95.9 - Hypotension, unspecified (3) Elevated C-reactive protein (CRP) Current visit: No Status: Acute Category: Medical Code(s): R79.82 - Elevated C-reactive protein (CRP) (4) Overweight (BMI 25.0-29.9) Current visit: No Status: Acute Category: Medical Code(s): E66.3 - Overweight (5) Weakness Current visit: No Status: Acute Category: Medical Code(s): R53.1 - Weakness (6) Back Pain Current visit: No Status: Chronic Qualifiers: Back pain location: thoracic back pain Chronicity: acute Back pain laterality: bilateral Qualified Code(s): M54.6 - Pain in thoracic spine Category: Medical Code(s): M54.9 - Dorsalgia, unspecified (7) Elevated erythrocyte sedimentation rate Current visit: Yes Status: Acute Category: Medical Code(s): R70.0 - Elevated erythrocyte sedimentation rate (8) Elevated d-dimer Current visit: Yes Status: Acute Category: Medical Code(s): R79.89 - Other specified abnormal findings of blood chemistry (9) Chest pain Current visit: No Status: Acute Qualifiers: Chest pain type: other chest pain Qualified Code(s): R07.89 - Other chest pain; R07.8 - Other chest pain Category: Medical Code(s): R07.9 - Chest
[2020-05-02 15:59] VITALS: BP 139/87; PULSE 85; RESP 18; TEMP 36.8; O2SAT 99
--- NOTE | 2020-05-02 19:16 | PC.NURSE ---
report given to swati
[2020-05-02 20:00] VITALS: BP 139/85; PULSE 80; RESP 20; TEMP 36.5; O2SAT 98
[2020-05-02 20:15] VITALS: O2SAT 98
[2020-05-03] VITALS (9 sets, daily range): BP systolic 108–143; BP diastolic 70–86; PULSE 43–69; RESP 16–22; TEMP 36.5–37.3; O2SAT 95–99; BMI 28.4
--- NOTE | 2020-05-03 | CA_ITS ---
APPROVED REPORT EXAM: Comprehensive 2D, Doppler, and color-flow Echocardiogram Director Regulatory Affairs: RT Say(R) Ht: 6 ft 1 in Wt: 222lbs BSA: 2.25 BP: 95/62 mmHg Indications: HTN, hyperlipidemia, GERD, kidney stone, murmur, fever, r/o endocarditis Procedure After obtaining informed consent, patient underwent transesophageal echo in the [facility]. Type of Sedation : Conscious Sedation Transesophageal probe was inserted and advanced into esophagus without difficulty by Dr. Sola Villanueva. The CAMERON was performed without complications. Throughout the procedure, the blood pressure, pulse oximetry, cardiac rhythm, and rate were monitored. The patient tolerated the procedure without adverse effects. Recovery from conscious sedation was uneventful and vital signs were stable. Left Ventricle Left ventricle is normal size preserved left ventricular systolic function estimated ejection fraction 55% with no regional wall motion abnormality. Right Ventricle Right ventricle is normal size and contractility. Atria Left atrium is normal. Left atrial appendage is free of thrombus, there is good appendage flow by spectral Doppler. Left atrium is not well visualized. Right atrium is normal size. Intra-atrial septum is intact, there is no flow across the interatrial septum, agitated saline contrast study fails to identify intracardiac shunt. Aortic Valve Aortic valve is normal there is no aortic stenosis or aortic insufficiency. Mitral Valve Mitral valve is normal, there is mild mitral regurgitation Tricuspid Valve Tricuspid valve is grossly normal, there is mild tricuspid regurgitation Pulmonic Valve Pulmonic valve is grossly normal. Great Vessels Aortic root is normal size. Pericardium No significant pericardial effusion noted. Conclusion 1. Normal left ventricular size and function, estimated ejection fraction 55% with no regional wall motion abnormality. 2. No valvular vegetation identified with this study. 3. No significant pericardial effusion noted. Electronically signed by : Andrei Murphy, 05/03/2020 13:49:25
--- NOTE | 2020-05-03 01:35 | PC.NURSE ---
A&OX4. PT HAS TOLERATED ROOM AIR WELL THROUGHOUT SHIFT. RESPIRATIONS REGULAR AND UNLABORED. LUNG SOUNDS BILATERALLY CLEAR. NO COUGH NOTED. SOFT NONTENDER ABDOMEN. ACTIVE BOWEL SOUNDS HEARD IN ALL 4 QUADRANTS. HEART RATE REGULAR. NO EDEMA NOTED. PT'S AT BEDSIDE. HAND SIGNALMAN EQUAL. PUPILS BRISK AND REACTIVE TO LIGHT. PT REPORTED PAIN OF 5/10 IN HIS BACK AT THE BEGINNING OF SHIFT AND WAS ADMINISTERED NORCO PER JAN. PT TOOK A SHOWER IN PREPARATION FOR CAMERON SCHEDULED FOR TODAY AT 1PM. CONSENT IS SIGNED AND ON THE CHART. PREOPERATIVE CHECKLIST WAS COMPLETED. LR INFUSING AT 75ML/HR. +2 PULSES NOTED THROUGHOUT. PT RESTING IN BED AT THIS TIME. CALL LIGHT WITHIN REACH. BED IN LOWEST POSITION. NO CONCERNS AT THIS TIME. VSS. WILL CONTINUE TO MONITOR.
[2020-05-03 06:44] LABS: Chloride 103 mmol/L (98-107); Potassium 4.1 mmoL/L (3.5-5.1); Sodium 139 mmol/L (136-145)
[2020-05-03 06:47] LABS: Blood Urea Nitrogen 18 mg/dl (9-20); Creatinine Clearance Estimated 118 mL/min (50-200); Estimated Glomerular Filt Rate 78 ml/min (>60); GFR (African American) 95 ML/MIN (>60)
[2020-05-03 06:48] LABS: Anion Gap 10.1 mEq/L (5-15); Calcium 9.6 mg/dl (8.4-10.2); Carbon Dioxide 30 mmol/L (22.0-30.0); Glucose 105 mg/dl (74-100)
[2020-05-03 06:53] LABS: Hematocrit 35.4 % (42.0-52.0); Hemoglobin 11.6 g/dL (14.1-18.0); Mean Corpuscular HGB Conc 32.7 g/dL (31.8-35.4); Mean Corpuscular Hemoglobin 29.1 pg (27.0-31.2); Mean Corpuscular Volume 88.9 fl (80-94); Red Blood Count 3.98 M/mm3 (4.60-6.20); Red Cell Distribution Width 14.9 % (11.5-17.5); White Blood Count 4.8 K/mm3 (4.8-10.8)
[2020-05-03 06:54] LABS: Eosinophils % 3.8 % (0.1-12.0); Lymphocytes % 33.2 % (10-50); Mean Platelet Volume 6.6 fl (7.4-10.4); Monocytes % 6.3 % (1.7-9.3); Neutrophils % 55.8 % (37.0-80.0); Platelet Count 345 K/mm3 (142-424)
[2020-05-03 06:55] LABS: Lymphocytes # 1.6 K/mm3 (0.7-4.5); Monocytes # 0.3 K/mm3 (0.1-1.0); Neutrophils # 2.7 K/mm3 (1.8-7.8)
[2020-05-03 06:56] LABS: Basophils # 0.1 K/mm3 (0-0.2); Eosinophils # 0.2 K/mm3 (0.0-0.4)
--- NOTE | 2020-05-03 07:33 | PC.NURSE ---
per md during am rounds, ok for pt to be saline locked
--- NOTE | 2020-05-03 08:02 | P.PN_ITS ---
Subjective Date: 05/03/20 Time: 08:02 Principal diagnosis: back pain, chest pain Interval history: 54-year-old white male ambulating in room in no acute distress. Denies any chest pain, pressure or tightness. Continues to have some mild back and neck discomfort. Bone scan yesterday showed evidence of arthritis with no convincing evidence of any metastatic disease. Planning for CAMERON today. Exam Vital signs and Labs for Last 24 Hours: Temp Pulse Resp BP Pulse Ox 97.7 F 69 18 134/77 99 05/03/20 07:52 05/03/20 07:52 05/03/20 07:52 05/03/20 07:52 05/03/20 07:52 Laboratory Results - last 24 hr 05/03/20 05:52: WBC 4.8, RBC 3.98 L, Hgb 11.6 L, Hct 35.4 L, MCV 88.9, MCH 29.1, MCHC 32.7, RDW 14.9, Plt Count 345, MPV 6.6 L, Neut % (Auto) 55.8, Lymph % (Auto) 33.2, [place] % (Auto) 6.3, Eos % (Auto) 3.8, Baso % (Auto) 1.0, Neut # (Auto) 2.7, Lymph # (Auto) 1.6, [place] # (Auto) 0.3, Eos # (Auto) 0.2, Baso # (Auto) 0.1 05/03/20 05:52: Sodium 139, Potassium 4.1, Chloride 103, Carbon Dioxide 30, Anion Gap 10.1, BUN 18, Creatinine 1.00, Estimated Creat Clear 118, Estimated GFR 78, Est GFR ( Amer) 95, Glucose 105 H, Calcium 9.6 I & O for Last 24 hours: Intake & Output 04/30/20 05/01/20 05/02/20 05/03/20 11:59 11:59 11:59 11:59 Intake Total 3454 / 3454 2306 / 2306 726 / 726 Balance 3454 / 3454 2306 / 2306 726 / 726 Weight 217 lb 8 oz 215 lb 1 oz 214 lb 9 oz Microbiology Reports for the Last 24 Hours: Microbiology 04/30/20 14:46 Blood Blood Culture - Preliminary NO GROWTH AFTER 48 HOURS 04/30/20 14:46 Blood Blood Culture - Preliminary NO GROWTH AFTER 48 HOURS - *Routine HEENT Exam Head: Present: normocephalic Eye: Present: EOMI, PERRL ENT: Present: mucous membranes moist - *Routine Respiratory Exam Present: CTA bilaterally. Absent: accessory muscle use, rales, rhonchi, wheezes - *Routine Cardiovascular Exam Present: RRR. Absent: murmur, gallop, rubs - *Routine Extremities Exam Absent: edema, calf tenderness - *Routine Neurological Exam Present: alert, oriented X3, moving all extremities Progress Note: A&P (1) Acute kidney injury Status: Acute Current Visit: Yes (2) Hypotension Status: Acute Current Visit: Yes (3) Elevated C-reactive protein (CRP) Status: Acute Current Visit: No (4) Overweight (BMI 25.0-29.9) Status: Acute Current Visit: No (5) Weakness Status: Acute Current Visit: No (6) Back Pain Status: Chronic Current Visit: No (7) Elevated erythrocyte sedimentation rate Status: Acute Current Visit: Yes (8) Elevated d-dimer Status: Acute Current Visit: Yes (9) Chest pain Status: Acute Current Visit: No Assessment and Plan for All Diagnoses:: 1. Planning for CAMERON today, if unremarkable then patient could be discharged home from cardiology standpoint. 2. Rheumatoid factor, SAMANTHA and lupus panel pending, may need referral to quenching machine operator in the future. 3. History of hypertension with presenting blood pressure less than 100 systolic. Losartan and HCTZ have been held during the stay. Consider continuing to hold till follow-up post hospitalization. 4. History of hyperlipidemia, continue to hold statin at this time consider restarting at follow-up 5.
--- NOTE | 2020-05-03 08:39 | HMH.DCSUM ---
General - General Admission date:: 04/30/20 Discharge date: 05/03/20 HPI HPI: this wm with upper back pain over the last few days - no prod cough and no reported fever - he tried to go to work but felt bad - he had recent admit - pt was seen in the ed -Patient is a 54-year-old male with a past medical history significant for recent admission to the hospital for unexplained back and chest pain, re-presents for similar symptoms. Patient states after being discharged he never significantly improved, and starting today patient experienced back pain which she states radiates up to his neck, and significant weakness. Patient brought to the emergency department by EMS for further evaluation. Patient denies recent fevers, chills, chest pain, shortness of breath, abdominal pain, or dysuria at this time. summary the patient is an ill appearing 54 year old male presenting to the emergency department for evaluation of back pain with radiation to his neck, as well as significant fatigue and generalized malaise. Patient is hypotensive on initial presentation concerning for significant pathology. Differential diagnosis includes but is not limited to ACS, acute heart failure, aortic dissection, aneurysm, or tamponade from pericardial effusion. Side ultrasound used and showed patient to have decreased ejection fraction, but no evidence of arterial effusion, or fluid in patient's abdomen. Patient's IVC was stiff decreasing believe that patient is suffering from hypovolemic shock. His labs returned significant for elevated d-dimer greater than 2000. ETA chest, and CT abdomen pelvis ordered. EKG showed normal sinus rhythm, no ST elevation, depression, or QT prolongation was noted. Patient's initial troponin shows no elevation. Patient's CTA of chest and Pelvis negative for acute pathology. After 2L of fluid the patient's MAP are sustained above 65. Given this pressors not needed. Dr. De Luna consulted and has agreed to admit Hospital Course Hospital Course: this wm with upper back pain over the last few days - no prod cough and no reported fever - he tried to go to work but felt bad - he had recent admit - pt was seen in the ed -Patient is a 54-year-old male with a past medical history significant for recent admission to the hospital for unexplained back and chest pain, re-presents for similar symptoms. Patient states after being discharged he never significantly improved, and starting today patient experienced back pain which she states radiates up to his neck, and significant weakness. Patient brought to the emergency department by EMS for further evaluation. Patient denies recent fevers, chills, chest pain, shortness of breath, abdominal pain, or dysuria at this time. summary the patient is an ill appearing 54 year old male presenting to the emergency department for evaluation of back pain with radiation to his neck, as well as significant fatigue and generalized malaise. Patient is hypotensive on initial presentation concerning for significant pathology. Differential diagnosis includes but is not limited to ACS, acute heart failure, aortic dissection, aneurysm, or tamponade from pericardial effusion. Side ultrasound used and showed patient to have decreased ejection fraction, but no evidence of arterial effusion, or fluid in patient's abdomen. Patient's IVC was stiff decreasing believe that patient is suffering from hypovolemic shock. His labs returned significant for elevated d-dimer greater than 2000. ETA chest, and CT abdomen pelvis ordered. EKG showed normal sinus rhythm, no ST elevation, depression, or QT prolongation was noted. Patient's initial troponin shows no elevation. Patient's CTA of chest and Pelvis negative for acute pathology. After 2L of fluid the patient's MAP are sustained above 65. Given this pressors not needed. Dr. De Luna consulted and has agreed to admit 04/30/20 CXR: IMPRESSION: No acute findings. Dictated by: Raghav
--- NOTE | 2020-05-03 12:57 | HMH.ANESCL ---
[facility] Anesthesia Checklist - Patient Identification Patient Identification: Arm Band - Structural Data Admitted From: Home Planned Operative Procedure/s: CAMERON Consent for Planned Operative Procedure(s) Verified: Yes Verified Documents: Surgical Consent, History and Physical - NPO Status Verified Time NPO: 00:00 - Additional verifications Anesthesia Reactions: No - Airway Assessment C-Spine Mobility Assessed: Yes (mp2) TMJ Mobility Assessed: Yes Dentition: Poor Dentition - Neurological Assessment Level of Consciousness: Awake, Alert - Anesthesia Plan Anesthesia Risk discussed: Yes Anesthesia Plan: Verified ASA Class: III Anesthesia Type: MAC [facility] History I have reviewed the patient's past medical history: Yes Medical History: Reports:: Gastroesophageal Reflux Disease(GERD), Hyperlipidemia, Hypertension, Kidney Stones Denies:: Cancer, Diabetes Mellitus Type 1, Diabetes Mellitus Type 2, Internal Pacemaker, MRSA *Have you ever received a pneumonia vaccine?: No *Have you received a flu vaccine this season?: No Other Medical History: Reports: Other Anesthesia experience/problems:: nac Other Surgeries: Yes: Cholecystectomy, EGD, Other (lipotripsy). No: Pacemaker Amputation: No Fractures: No - *Social History Smoking Status: Never smoker # Packs/Day (cigarettes): 1 #Yrs smoked (if former smoker): 20 Alcohol Intake: never Substance Use Type: denies use *Occupational Status:: employed Housing: apartment Household Members: spouse, children *Travel in the last 8 weeks: None Family Hx:: Cancer, Coronary Artery Disease, Hyperlipidemia, Hypertension, Stroke, Thyroid Disorder
--- NOTE | 2020-05-03 14:46 | HMH.PHAINT ---
DISCHARGE COUNSELING COMPLETED.
--- NOTE | 2020-05-03 15:47 | PC.NURSE ---
prior to dc pt was given glass of ice water and cup of jello. pt was able to eat and drink without complications. pt to be discharged per tanmay saunders orders
[2020-06-01 16:51] LABS: Antinuclear Antibodies (ANA) POSITIVE
[2020-06-01 17:52] LABS: APTT 30.8
[2020-06-01 17:56] LABS: LAC Interpreation: SEE BELOW:
== END 2020-05-03 15:05 | disposition home or self-care (01) | DRG 684 ==
LOC: ER 15:43 → 2ND 05-01 08:16
PROVIDERS: Internal Medicine Cardiovascular Disease; Nurse Practitioner Family; Physician Assistant; Admitting Provider Emergency Medicine; Emergency Provider Emergency Medicine; PCP Emergency Medicine; Visit Provider Emergency Medicine
DX: N17.9 Acute kidney failure, unspecified (principal); R07.9 Chest pain, unspecified; I95.9 Hypotension, unspecified; M54.6 Pain in thoracic spine; R70.0 Elevated erythrocyte sedimentation rate; R79.89 Other specified abnormal findings of blood chemistry; R79.82 Elevated C-reactive protein (CRP); Z79.899 Other long term (current) drug therapy; Z88.8 Allergy status to other drugs, medicaments and biological substances
CPT/HCPCS: 36415; 71045; 71275; 74174; 78306; 80048; 80053; 81001; 82550; 83605; 84153; 84484; 85025; 85378; 85597; 85598; 85610; 85613; 85651; 85670; 85730; 86038; 86140; 86146; 86147; 86431; 87040; 93005; 93306; 93312; 96365; 96366; 99285; A9503; Q9967

== ENCOUNTER → 2021-02-01 17:00 | Outpatient (CLI) | payer OTHER, SELFPAY ==
[2021-02-01 18:51] LABS: Amphetamine/Metha Screen,Urine Negative ng/ml (<1000); Barbiturates Screen,Urine Negative ng/ml (<200)
[2021-02-01 18:52] LABS: Benzodiazepines Screen,Urine Negative ng/ml (<200); Cannabinoid Screen,Urine Negative ng/ml (<50)
[2021-02-01 18:53] LABS: Cocaine Screen,Urine Negative ng/ml (<300)
[2021-02-01 18:54] LABS: Methadone Screen,Urine Negative ng/ml (<300); Opiate Screen,Urine Negative ng/ml (<300)
[2021-02-01 18:55] LABS: Phencyclidine Screen,Urine Negative ng/ml (<25)
== END ==
PROVIDERS: Visit Provider Emergency Medicine
DX: Z79.899 Other long term (current) drug therapy (principal)
CPT/HCPCS: 80305

== ENCOUNTER 2021-03-08 19:00 | Emergency (ER) | payer OTHER, SELFPAY ==
--- NOTE | 2021-03-08 19:10 | ECG_ITS ---
APPROVED REPORT Exam: Resting ECG HR:59 bpm ECG Measurements Heart Rate 59 AXES [place] 166 P 46 QRSd 96 QRS -18 QT 452 T 1 QTc 447 Conclusion Sinus bradycardia with occasional premature ventricular complexes ST & T wave abnormality, consider anterior ischemia Abnormal ECG Electronically signed by : James Rivers, 03/10/2021 07:29:07
--- NOTE | 2021-03-08 19:17 | XR_ITS ---
PROCEDURE: XR CHEST 2V CLINICAL HISTORY: short of breath Shortness of breath, hypertension, feet hand swelling COMPARISON: CR CXR2V XR chest 2V from 03/23/2018 CR XR CHEST 2V from 04/14/[address] ANGIO CHEST from 04/30/2020 CR XR CHEST PORTABLE from 04/30/2020 FINDINGS: The cardiomediastinal silhouette and pulmonary vascularity are within normal limits. The lungs are clear without infiltrates, suspicious nodules, or pleural effusions. No acute bony abnormalities. IMPRESSION: No acute findings. Dictated by: Balta Avilez MD 03/09/2021 08:08 Balta Avilez MD in [place] 03/09/2021 08:08
[2021-03-08 19:24] VITALS: BP 170/102; PULSE 70; RESP 16; TEMP 36.8; O2SAT 98; BMI 31.5
[2021-03-08 19:26] LABS: Basophils # 0.1 K/mm3 (0-0.2); Basophils % 0.9 % (0.1-2.0); Eosinophils # 0.2 K/mm3 (0.0-0.4); Eosinophils % 3.5 % (0.1-12.0); Hematocrit 39.7 % (42.0-52.0); Hemoglobin 12.7 g/dL (14.1-18.0); Lymphocytes # 1.5 K/mm3 (0.7-4.5); Lymphocytes % 27.9 % (10-50); Mean Corpuscular HGB Conc 32.1 g/dL (31.8-35.4); Mean Corpuscular Hemoglobin 28.3 pg (27.0-31.2); Mean Platelet Volume 7.3 fl (7.4-10.4); Monocytes # 0.2 K/mm3 (0.1-1.0); Monocytes % 3.8 % (1.7-9.3); Neutrophils # 3.4 K/mm3 (1.8-7.8); Neutrophils % 63.9 % (37.0-80.0); Platelet Count 235 K/mm3 (142-424); Red Blood Count 4.51 M/mm3 (4.60-6.20); Red Cell Distribution Width 15.8 % (11.5-17.5); White Blood Count 5.3 K/mm3 (4.8-10.8)
[2021-03-08 19:30] VITALS: BP 155/84; PULSE 60; O2SAT 97
[2021-03-08 19:30] LABS: Chloride 104 mmol/L (98-107)
[2021-03-08 19:31] LABS: Potassium 3.9 mmoL/L (3.5-5.1); Sodium 139 mmol/L (136-145)
[2021-03-08 19:33] LABS: Alanine Aminotransferase 24 U/L (12-78); Aspartate Amino Transferase 34 U/L (17-59); Blood Urea Nitrogen 15 mg/dl (9-20); Estimated Glomerular Filt Rate 118 ml/min (>60); GFR (African American) 142 ML/MIN (>60)
[2021-03-08 19:34] LABS: Albumin Level 4.3 g/dl (3.5-5.0); Albumin/Globulin Ratio 1.2 (1.1-1.8); Alkaline Phosphatase 97 U/L (38-126); Anion Gap 11.9 mEq/L (5-15); Bilirubin,Total 0.3 mg/dl (0.2-1.3); Calcium 9.2 mg/dl (8.4-10.2); Carbon Dioxide 27 mmol/L (22.0-30.0); Globulin 3.5 g/dL (1.3-3.2); Glucose 132 mg/dl (74-100); Total Protein,Serum 7.8 g/dl (6.3-8.2)
[2021-03-08 19:43] LABS: NT Pro Brain Natriuretic Pep. 440 pg/mL (0-125)
[2021-03-08 19:48] LABS: Troponin I < 0.01 ng/ml (0.00-0.034)
[2021-03-08 20:00] VITALS: BP 163/96; PULSE 60; O2SAT 95
--- NOTE | 2021-03-08 20:24 | HMH.EDGENADL ---
ED Disposition Clinical Impression: Fluid overload Qualifiers: Hypervolemia type: other Qualified Code(s): E87.79 - Other fluid overload CHF (congestive heart failure) Qualifiers: Heart failure type: unspecified Heart failure chronicity: unspecified Qualified Code(s): I50.9 - Heart failure, unspecified Disposition: Home, Self-Care Condition on Discharge: Fair Instructions: DI for Heart Failure, DI for Shortness of Breath Additional Instructions: You have been evaluated for swelling and shortness of breath. This is likely due to CHF and fluid overload. Please take 20 mg Lasix as prescribed. Follow-up in clinic early this week, in the morning on Thursday, Thursday or Thursday. You will likely need an echocardiogram and possibly a sleep study. Return to the emergency department at once for any new or worsening symptoms, chest pain, shortness of breath, other concerns. Prescriptions: Furosemide [Lasix 20mg tab] 20 mg PO DAILY #30 tab Transmission Status: Received by [facility] Referrals: Juanito De Luna MD [Primary Care Provider] - Time of Disposition: 20:25 - Critical Care Critical Care Time: No Attestation: On 03/08/21, the high probability of a clinically significant, sudden or life threatening deterioration of the following system(s) required my full and direct attention, intervention and personal management. The time I documented below is in addition to time spent performing reported procedures but includes the following listed in this critical care notation. Medical Decision Making - Medical Records Medical records reviewed: Yes: I reviewed the patient's medical records. - Francois Inquiry Pt receiving controlled substance: No Vital Signs: 03/08/21 19:24 03/08/21 19:30 03/08/21 20:00 Temperature 98.2 F Temperature Source Oral Pulse Rate 60 60 Pulse Rate [Right] 70 Respiratory Rate 16 Blood Pressure 155/84 H 163/96 H Blood Pressure [Right Arm] 170/102 H Blood Pressure Mean [Right Arm] 124 Blood Pressure Source Manual Cuff/ Auscultation Manual Cuff/ Auscultation Blood Pressure Source [Right Arm] Automatic Cuff Blood Pressure Position Supine Supine Blood Pressure Position [Right Arm] Supine 02 Sat by Pulse Oximetry 98 97 95 Oxygen Delivery Method Room Air Room Air Room Air - Lab Data Lab Results 03/08/21 19:19: WBC 5.3, RBC 4.51 L, Hgb 12.7 L, Hct 39.7 L, MCV 88.0, MCH 28.3, MCHC 32.1, RDW 15.8, Plt Count 235, MPV 7.3 L, Neut % (Auto) 63.9, Lymph % (Auto) 27.9, [place] % (Auto) 3.8, Eos % (Auto) 3.5, Baso % (Auto) 0.9, Neut # (Auto) 3.4, Lymph # (Auto) 1.5, [place] # (Auto) 0.2, Eos # (Auto) 0.2, Baso # (Auto) 0.1 03/08/21 19:19: Sodium 139, Potassium 3.9, Chloride 104, Carbon Dioxide 27, Anion Gap 11.9, BUN 15, Creatinine 0.70, Estimated GFR 118, Est GFR ( Amer) 142, Glucose 132 H, Calcium 9.2, Total Bilirubin 0.3, AST 34, ALT 24, Alkaline Phosphatase 97, Troponin I < 0.01, NT-Pro-B Natriuret Pep 440 H, Total Protein 7.8, Albumin 4.3, Globulin 3.5 H, Albumin/Globulin Ratio 1.2 Result diagrams: 03/08/21 19:19 03/08/21 19:19 Orders (Tests/Meds): ED MEDICATIONS Discontinued Medications Generic Name Dose Route Start Last Admin Trade Name Freq PRN Reason Stop Dose Admin Furosemide 20 mg 03/08/21 20:26 Furosemide 20 Mg/2 Ml Vial IV 03/08/21 20:27 ONCE ONE ORDERS Category Date Time Status CXR 2 view (NOT portable) [XR chest 2V] Stat Exams 03/08/21 19:17 Taken Troponin I Q3H Lab 03/08/21 22:30 Ordered Troponin I Q3H Lab 03/09/21 01:30 Ordered UA [Urinalysis and Microscopic] Stat Lab 03/08/21 19:18 Ordered - ECG Data Tracing #1 Sinus rhythm with ventricular rate of 59 bpm. QRS 96, QTc 447. Incomplete right bundle branch block. T wave inversions in anterior leads. No ST segment elevations. - SHANEL Score for Non-Stemi Age of Patient: 50-59 years old Heart Rate: 70-89 bpm Systolic Blood Pressure: 160-199 mmHg Ser
[2021-03-08 20:30] VITALS: BP 149/92; PULSE 60; O2SAT 96
[2021-03-08 22:00] VITALS: BP 140/86; PULSE 60; RESP 20; TEMP 36.7; O2SAT 98
== END 2021-03-08 22:05 | disposition home or self-care (01) ==
PROVIDERS: Emergency Provider Emergency Medicine; PCP Emergency Medicine
DX: E87.79 Other fluid overload (principal); I50.9 Heart failure, unspecified; K21.9 Gastro-esophageal reflux disease without esophagitis; E78.5 Hyperlipidemia, unspecified; I10 Essential (primary) hypertension; Z87.442 Personal history of urinary calculi; Z79.899 Other long term (current) drug therapy; Z88.2 Allergy status to sulfonamides
CPT/HCPCS: 71046; 80053; 83880; 84484; 85025; 93005; 96375; 99283

== ENCOUNTER 2021-03-17 14:44 | Inpatient (IN) | payer OTHER, SELFPAY ==
[2021-03-17] VITALS (13 sets, daily range): BP systolic 119–142; BP diastolic 75–91; PULSE 70–94; RESP 18–20; TEMP 37.5–37.6; O2SAT 91–97; BMI 30.9; BMI 30.3
--- NOTE | 2021-03-17 14:54 | HMH.EDGENADL ---
ED Disposition Clinical Impression: Pneumonia due to COVID-19 virus Disposition: Admitted As Inpatient Condition on Discharge: Fair Referrals: Juanito De Luna MD [Primary Care Provider] - - Critical Care Critical Care Time: No Attestation: On 03/17/21, the high probability of a clinically significant, sudden or life threatening deterioration of the following system(s) required my full and direct attention, intervention and personal management. The time I documented below is in addition to time spent performing reported procedures but includes the following listed in this critical care notation. Medical Decision Making - Medical Records Medical records reviewed: Yes: I reviewed the patient's medical records. MR Comment: Reviewed emergency department visit 03/08/2021, PCP office visit 03/15/2021. Diagnosed with fluid overload on 03/08/2029 and started on lasix; diagnosed with chest congestion on 03/15/2021 and treated with Rocephin, Zithromax, Decadron - Francois Inquiry Pt receiving controlled substance: No Vital Signs: 03/17/21 14:46 03/17/21 15:00 03/17/21 15:18 Temperature 99.7 F H Temperature Source Oral Pulse Rate 94 H Pulse Rate [Right Radial] 91 H Respiratory Rate 18 Blood Pressure 130/85 Blood Pressure [Right Arm] 142/91 H Blood Pressure Mean 100 Blood Pressure Mean [Right Arm] 108 Blood Pressure Source [Right Arm] Automatic Cuff Blood Pressure Position [Right Arm] Sitting 02 Sat by Pulse Oximetry 93 L 92 L 93 L Oxygen Delivery Method Room Air Nasal Cannula Oxygen Flow Rate (LPM) 2 03/17/21 15:30 03/17/21 16:00 03/17/21 16:30 Temperature Temperature Source Pulse Rate 86 83 82 Pulse Rate [Right Radial] Respiratory Rate Blood Pressure 126/79 124/78 124/81 Blood Pressure [Right Arm] Blood Pressure Mean 91 93 90 Blood Pressure Mean [Right Arm] Blood Pressure Source [Right Arm] Blood Pressure Position [Right Arm] 02 Sat by Pulse Oximetry 97 94 L 95 Oxygen Delivery Method Oxygen Flow Rate (LPM) 03/17/21 17:00 Temperature Temperature Source Pulse Rate 85 Pulse Rate [Right Radial] Respiratory Rate Blood Pressure 132/86 Blood Pressure [Right Arm] Blood Pressure Mean 98 Blood Pressure Mean [Right Arm] Blood Pressure Source [Right Arm] Blood Pressure Position [Right Arm] 02 Sat by Pulse Oximetry 91 L Oxygen Delivery Method Oxygen Flow Rate (LPM) - Lab Data Lab Results 03/17/21 15:07: WBC 4.7 L, RBC 5.08, Hgb 14.4, Hct 44.6, MCV 87.7, MCH 28.4, MCHC 32.4, RDW 16.2, Plt Count 220, MPV 7.4, Neut % (Auto) 76.6, Lymph % (Auto) 13.4, [place] % (Auto) 8.9, Eos % (Auto) 0.1, Baso % (Auto) 1.1, Neut # (Auto) 3.6, Lymph # (Auto) 0.6 L, [place] # (Auto) 0.4, Eos # (Auto) 0.0, Baso # (Auto) 0.1 03/17/21 15:07: Sodium 137, Potassium 3.9, Chloride 95 L, Carbon Dioxide 34 H, Anion Gap 11.9, BUN 20, Creatinine 1.00, Estimated Creat Clear 127, Estimated GFR 78, Est GFR ( Amer) 94, Glucose 121 H, Calcium 9.3, Total Bilirubin 0.7, AST 53, ALT 31, Alkaline Phosphatase 120, Total Protein 8.5 H, Albumin 4.5, Globulin 4.0 H, Albumin/Globulin Ratio 1.1 03/17/21 15:07: Lactate 1.7 Result diagrams: 03/17/21 15:07 03/17/21 15:07 Orders (Tests/Meds): ED MEDICATIONS Generic Name Dose Route Start Last Admin Trade Name Freq PRN Reason Stop Dose Admin Sodium Chloride 1,000 mls @ 100 mls/hr 03/17/21 15:15 03/17/21 15:21 Sod Chlor 0.9% 1000ml Bag IV 04/16/21 15:14 100 mls/hr .Q10H DELON Administration Levofloxacin/Dextrose 750 mg in 150 mls @ 100 mls/hr 03/17/21 15:45 03/17/21 15:44 Levofloxacin 750mg/150ml Premix IV 03/31/21 15:44 100 mls/hr Q24H DELON Administration Protocol ORDERS Category Date Time Status Blood Culture Stat Micro 03/17/21 15:07 Received - Radiology Data #1 Image(s): Chest Image Reviewed: Yes I reviewed the patient's radiology image, Yes I have reviewed radiologist's interpretation
--- NOTE | 2021-03-17 15:07 | XR_ITS ---
PROCEDURE: XR CHEST PORTABLE CLINICAL HISTORY: cough, fever, soa COMPARISON: CR XR CHEST 2V from 04/14/[address] ANGIO CHEST from 04/30/2020 CR XR CHEST PORTABLE from 04/30/2020 CR XR CHEST 2V from 03/08/2021 FINDINGS: There is cardiomegaly without failure. Infiltrate is present in the the mid lower lung zones on both sides left more extensive than right. No obvious effusion. No acute bony abnormalities. IMPRESSION: Bilateral pneumonia Dictated by: Balta Avilez MD 03/17/2021 16:51 Balta Avilez MD in [place] 03/17/2021 16:51
--- NOTE | 2021-03-17 15:17 | PC.NURSE ---
rad at for portable cxr
[2021-03-17 15:32] LABS: Chloride 95 mmol/L (98-107)
[2021-03-17 15:33] LABS: Potassium 3.9 mmoL/L (3.5-5.1); Sodium 137 mmol/L (136-145)
[2021-03-17 15:35] LABS: Alanine Aminotransferase 31 U/L (12-78); Aspartate Amino Transferase 53 U/L (17-59); Bilirubin,Total 0.7 mg/dl (0.2-1.3); Blood Urea Nitrogen 20 mg/dl (9-20); Creatinine Clearance Estimated 127 mL/min (50-200); Estimated Glomerular Filt Rate 78 ml/min (>60); GFR (African American) 94 ML/MIN (>60)
[2021-03-17 15:36] LABS: Albumin Level 4.5 g/dl (3.5-5.0); Albumin/Globulin Ratio 1.1 (1.1-1.8); Alkaline Phosphatase 120 U/L (38-126); Anion Gap 11.9 mEq/L (5-15); Calcium 9.3 mg/dl (8.4-10.2); Carbon Dioxide 34 mmol/L (22.0-30.0); Glucose 121 mg/dl (74-100); Lactic Acid 1.7 mmol/L (0.7-2.1); Total Protein,Serum 8.5 g/dl (6.3-8.2)
[2021-03-17 15:38] LABS: Basophils # 0.1 K/mm3 (0-0.2); Basophils % 1.1 % (0.1-2.0); Eosinophils % 0.1 % (0.1-12.0); Hematocrit 44.6 % (42.0-52.0); Hemoglobin 14.4 g/dL (14.1-18.0); Lymphocytes # 0.6 K/mm3 (0.7-4.5); Lymphocytes % 13.4 % (10-50); Mean Corpuscular HGB Conc 32.4 g/dL (31.8-35.4); Mean Corpuscular Hemoglobin 28.4 pg (27.0-31.2); Mean Corpuscular Volume 87.7 fl (80-94); Mean Platelet Volume 7.4 fl (7.4-10.4); Monocytes # 0.4 K/mm3 (0.1-1.0); Monocytes % 8.9 % (1.7-9.3); Neutrophils # 3.6 K/mm3 (1.8-7.8); Neutrophils % 76.6 % (37.0-80.0); Platelet Count 220 K/mm3 (142-424); Red Blood Count 5.08 M/mm3 (4.60-6.20); Red Cell Distribution Width 16.2 % (11.5-17.5); White Blood Count 4.7 K/mm3 (4.8-10.8)
--- NOTE | 2021-03-17 17:58 | PC.NURSE ---
notified ER pt covid swab is positive
--- NOTE | 2021-03-17 18:31 | PC.NURSE ---
attempted to call report to second floor, product steward states she will have receiving nurse call me back
--- NOTE | 2021-03-17 18:38 | PC.NURSE ---
report called to jenn mustafa on second floor.
--- NOTE | 2021-03-17 19:01 | PC.NURSE ---
PT ARRIVED TO FLOOR VIA W/C FROM ED W/STAFF AT 1900
[2021-03-18] VITALS (7 sets, daily range): BP systolic 111–143; BP diastolic 64–78; PULSE 52–75; RESP 16–19; TEMP 35.9–36.7; O2SAT 93–98; BMI 30.4
--- NOTE | 2021-03-18 08:00 | CA_ITS ---
APPROVED REPORT EXAM: Comprehensive 2D, Doppler, and color-flow Echocardiogram Video Photographer: SUZANNE Owens, RVS Ht: 6 ft 1 in Wt: 235lbs BSA: 2.30 HR: 52 bpm BP: 124/81 mmHg Rhythm: Bradycardia Indications: Covid-19, pneumonia, chf 2D Dimensions LVDd 5.76 cm M: 4.2 - 5.9 LVEF (Visual) 46.20 % LVDs 4.41 cm M: 2.5 - 4.0 Aortic Root 3.03 cm M: 3.1 - 3.7 Left Atrium 3.78 cm M: 3.0 - 4.0 LVOT 2.07 cm (M/F) 1.5-2.5 M-Mode Dimensions RVDd 3.70 cm (0.9-2.6) LA Diam 3.96 cm (1.9-4.0) LVDd 5.23 cm (3.5-5.7) Ao Diam 3.28 cm (2.0-3.7) LVDs 3.26 cm (3.5-5.7) IVSd 1.13 cm (0.6-1.1) PWd 0.99 cm (0.6-1.1) EF (Teich) 67.40% EPSs 0.88 cm FS 37.70% EDV (Teich) 131.20 mL TAPSE 2.31 (<1.7) ESV (Teich) 42.80 mL LV Diastology E Decel Time 233.00 (160-240 msec) E/A Ratio 1.65 MED E' 10.20 (< 7 cm/sec) MED A' 8.70 cm/s E'/MED E' Ratio 8.88 (>14) LAT E' 11.40 (<10 cm/sec) LAT A' 7.30 cm/s E/LAT E' Ratio 7.95 (>14) Pulm Vein s 34.00 cm/sec Pulm Vein d 24.00 cm/sec Ar-A Duration 103.00 msec Aortic Valve LVOT Max 110.00 (70-110 cm/s) LVOT VTI 24.60 cm AoV Peak [place]. 138.00 (50-130 cm/s) AO Peak GR. 7.60 mmHg AO Mean GR. 3.80 (<5 mmHg) AO VTI 31.03 (18-25 cm) MARQUISE (VTI) 2.67 (2.5-4.5 cm2) Mitral Valve MV A Velocity 55.00 (40-130 cm/s) E/A Ratio 1.65 MV Decel. Time 233.00 (160-240 ms) Pulmonary Valve PV Peak Velocity 74.00 (50-150 cm/s) Tricuspid Valve TR P. Velocity 231.00 cm/s RAP Estimate 10.00 mmHg RVSP 31.30 mmHg Left Ventricle Left atrium is mildly enlarged, left ventricle is normal size, there is no concentric left ventricular hypertrophy, visually estimated ejection fraction 55% with no regional wall motion abnormality, diastolic parameters are inconclusive. Right Ventricle Right atrium and right ventricle are mildly enlarged with normal contractility. Aortic Valve Aortic valve is minimally thickened and fibrosed, there is no aortic stenosis or aortic insufficiency. Mitral Valve Mitral valve is grossly normal, there is trace mitral regurgitation. Tricuspid Valve Tricuspid grossly normal, there is trace tricuspid regurgitation, tricuspid regurgitation jet velocity is inadequate for calculation of the right ventricular systolic pressure. Pulmonic Valve Pulmonic valve is poorly visualized. Great Vessels Aortic root is normal size. Pericardium No significant pericardial effusion noted. Conclusion 1. Mild biatrial enlargement, normal left ventricular size, visually estimated ejection fraction 55% with no regional wall motion abnormality. Diastolic parameters are inconclusive. 2. Mildly enlarged right ventricle with normal contractility. 3. Trace mitral and tricuspid regurgitation. 4. No significant pericardial effusion noted. Electronically signed by : Andrei Murphy, 03/18/2021 09:52:33
--- NOTE | 2021-03-18 08:39 | HMH.PHAVTE ---
[facility] VTE Monitoring - Patient Demographics Admission date: 03/17/21 Report Date: 03/18/21 Time: 08:39 Allergies/Adverse Reactions: Patient Allergies sulfamethoxazole [From BACTRIM] Allergy (Unknown, Verified 03/15/21 14:37) trimethoprim [From BACTRIM] Allergy (Unknown, Verified 03/15/21 14:37) Height: 1.85 m Weight: 104.326 kg Patient Problems: Current Active Problems Pneumonia due to COVID-19 virus (Acute) - VTE Risk Labs: VTE Related Lab Results Hgb 14.4 g/dL (14.1-18.0) 03/17/21 15:07 Hct 44.6 % (42.0-52.0) 03/17/21 15:07 Plt Count 220 K/mm3 (142-424) 03/17/21 15:07 BUN 20 mg/dl (9-20) 03/17/21 15:07 Creatinine 1.00 mg/dl (0.66-1.25) 03/17/21 15:07 Estimated Creat Clear 127 mL/min (50-200) 03/17/21 15:07 - Prophylaxis VTE Prophylaxis Ordered?: Yes Types of VTE Prophylaxis: Pharmacological Pharmacologic Type: Enoxaparin
--- NOTE | 2021-03-18 10:05 | HMH.HP ---
*Admission Date: 03/17/21 *Chief complaint: soa *History of present illness: Mr. Saavedra is a 55-year-old male presented to emergency department complaining of worsening cough and shortness of breath for the last 1 week. Patient states he has been running a fever since . ,Nonproductive cough, body aches,and Slight sore throat. Pt states he has had a poor appetite, not eating or drinking much and he almost passed out yesterday. Seen in the office on Thursday, 2 days ago, and given a shot of antibiotics and steroids for the symptoms, has not improved. Patient admitted for covid pneumonia [facility] History I have reviewed the patient's past medical history: Yes Medical History: Reports:: Gastroesophageal Reflux Disease(GERD), Hyperlipidemia, Hypertension, Kidney Stones Denies:: Cancer, Diabetes Mellitus Type 1, Diabetes Mellitus Type 2, Internal Pacemaker, MRSA *Have you ever received a pneumonia vaccine?: No *Have you received a flu vaccine this season?: No Other Medical History: Reports: Other Other Surgeries: Yes: Cholecystectomy, EGD, Other (lipotripsy). No: Pacemaker Amputation: No Fractures: No - *Social History Last grade of school completed: High school graduate Smoking Status: Never smoker Tobacco Type: smokeless tobacco # Packs/Day (cigarettes): 0 #Yrs smoked (if former smoker): 20 Alcohol Intake: never Substance Use Type: denies use *Occupational Status:: employed Housing: apartment Household Members: spouse *Travel in the last 8 weeks: Inside the [facility] Family Hx:: Cancer, Hypertension, Stroke Review of Systems - Review of Systems Review of systems:: pertinent systems reviewed and negative unless documented below - Constitutional Reports body ache(s), Reports fatigue, Reports fever(s), Reports malaise - Eyes Denies bulging eyes - ENT Denies change in voice - *Cardiovascular Reports shortness of breath, Reports generalized swelling, Denies chest pain with activity - *Respiratory Reports change in phlegm color, Reports cough, Reports shortness of breath, Denies chest congestion - *Gastrointestinal Denies nausea, Denies constant urge to pass stool, Denies vomiting - *Genitourinary Denies painful urination - *Musculoskeletal Reports body aches, Denies joint swelling - Integumentary/Breasts Denies rash - *Neurologic Reports headache(s), Reports weakness, Denies abnormal movements - Psychiatric Denies anxiety - Endocrine Denies flushing - Hematologic/Lymphatic Denies enlarged lymph nodes - Allergic/Immunologic Denies throat swelling Meds Home Medications Medication Instructions Recorded Confirmed Type hydrocodone 5 mg-acetaminophen 325 1 tab PO TID PRN #90 tab 02/01/21 03/17/21 Rx mg tablet Aspirin [Low Dose Aspirin EC] 81 mg PO DAILY 03/17/21 03/17/21 History Azithromycin 250 mg PO DIRECTED 03/17/21 03/17/21 History Escitalopram Oxalate 20 mg PO DAILY 03/17/21 03/17/21 History Gabapentin 900 mg PO TID 03/17/21 03/17/21 History Pantoprazole Sodium 40 mg PO DAILY 03/17/21 03/17/21 History Simvastatin 20 mg PO HS 03/18/21 03/18/21 History Allergies Allergy/AdvReac Type Severity Reaction Status Date / Time sulfamethoxazole Allergy Unknown Verified 03/15/21 14:37 [From BACTRIM] trimethoprim [From BACTRIM] Allergy Unknown Verified 03/15/21 14:37 Exam Vital signs and Labs for Last 24 Hours: Temp Pulse Resp BP Pulse Ox 96.7 F L 60 19 140/70 97 03/18/21 08:00 03/18/21 08:00 03/18/21 08:00 03/18/21 08:00 03/18/21 08:00 Laboratory Results - last 24 hr 03/17/21 15:07: WBC 4.7 L, RBC 5.08, Hgb 14.4, Hct 44.6, MCV 87.7, MCH 28.4, MCHC 32.4, RDW 16.2, Plt Count 220, MPV 7.4, Neut % (Auto) 76.6, Lymph % (Auto) 13.4, [place] % (Auto) 8.9, Eos % (Auto) 0.1, Baso % (Auto) 1.1, Neut # (Auto) 3.6, Lymph # (Auto) 0.6 L, [place] # (Auto) 0.4, Eos # (Auto) 0.0, Baso # (Auto) 0.1 03/17/21 15:07: Sodium 137, Potassium 3.9, Chloride 95 L, Carbon Dioxide 34 H, Anion
--- NOTE | 2021-03-18 12:59 | HMH.PULMCON ---
*Admission Date: 03/17/21 *Reason for consult:: Acute hypoxic respiratory failure, COVID-19 pneumonia *History of present illness: Mr. Saavedra is a 55-year-old male never smoker no prior respiratory complaints no personal history of allergies or asthma presented to emergency department complaining of worsening cough and shortness of breath for the last 1 week pulmonary was called for further management as patient was diagnosed with COVID-19 pneumonia [facility] History Medical History: Reports:: Gastroesophageal Reflux Disease(GERD), Hyperlipidemia, Hypertension, Kidney Stones Denies:: Cancer, Diabetes Mellitus Type 1, Diabetes Mellitus Type 2, Internal Pacemaker, MRSA *Have you ever received a pneumonia vaccine?: No *Have you received a flu vaccine this season?: No Other Medical History: Reports: Other Other Surgeries: Yes: Cholecystectomy, EGD, Other (lipotripsy). No: Pacemaker Amputation: No Fractures: No - *Social History Last grade of school completed: High school graduate Smoking Status: Never smoker Tobacco Type: smokeless tobacco # Packs/Day (cigarettes): 0 #Yrs smoked (if former smoker): 20 Alcohol Intake: never Substance Use Type: denies use *Occupational Status:: employed Housing: apartment Household Members: spouse *Travel in the last 8 weeks: Inside the [facility] Family Hx:: Cancer, Hypertension, Stroke ROS - Cons Reports anorexia, Reports body ache(s), Reports chills, Reports fatigue - Card Reports shortness of breath, Reports shortness of breath with activity, Reports generalized swelling, Reports leg swelling - Resp Respiratory: Reports chest congestion, Reports cough, Reports dyspnea on exertion, Reports excessive phlegm production - GI Gastrointestingal: Reports: dyspepsia Meds Home Medications Medication Instructions Recorded Confirmed Type hydrocodone 5 mg-acetaminophen 325 1 tab PO TID PRN #90 tab 02/01/21 03/17/21 Rx mg tablet Aspirin [Low Dose Aspirin EC] 81 mg PO DAILY 03/17/21 03/17/21 History Azithromycin 250 mg PO DIRECTED 03/17/21 03/17/21 History Escitalopram Oxalate 20 mg PO DAILY 03/17/21 03/17/21 History Gabapentin 900 mg PO TID 03/17/21 03/17/21 History Pantoprazole Sodium 40 mg PO DAILY 03/17/21 03/17/21 History Allergies Allergy/AdvReac Type Severity Reaction Status Date / Time sulfamethoxazole Allergy Unknown Verified 03/15/21 14:37 [From BACTRIM] trimethoprim [From BACTRIM] Allergy Unknown Verified 03/15/21 14:37 Exam - Constitutional Constitutional:: Present: no acute distress, comfortable - HENMT Exam HENMT: Present: normocephalic, atraumatic - Eye Exam Eyes:: Present: normal appearance both eyes and related structures - Neck Exam Neck:: Present: normal visual inspection - Respiratory Exam Respiratory:: Present: able to speak in complete sentences, respiratory distress, crackles - Cardiovascular Exam Cardiac:: Present: S1, S2 - GI Exam GI:: Present: soft, no tenderness - Skin Exam Skin: Present: warm, no rash - Neurological Exam Neurological: Present: alert, awake, normal cognition - Extremities Exam Extremities: Present: no cyanosis, no clubbing, edema - Psychiatric Exam Psychiatric: Present: normal affect Internal Medicine - CN: Reslt - Labs CBC & Chem 7: 03/17/21 15:07 03/17/21 15:07 Labs: Short CBC 03/17/21 Range/Units 15:07 WBC 4.7 L (4.8-10.8) K/mm3 Hgb 14.4 (14.1-18.0) g/dL Hct 44.6 (42.0-52.0) % Plt Count 220 (142-424) K/mm3 BMP 03/17/21 15:07 Sodium 137 Potassium 3.9 Chloride 95 L Carbon Dioxide 34 H BUN 20 Creatinine 1.00 Glucose 121 H Calcium 9.3 Liver Function 03/17/21 Range/Units 15:07 Total Bilirubin 0.7 (0.2-1.3) mg/dl AST 53 (17-59) U/L ALT 31 (12-78) U/L Alkaline Phosphatase 120 (38-126) U/L Albumin 4.5 (3.5-5.0) g/dl Assessment and Plan - Assessment and plan all Dx Assessment and Plan for all problems:: #Acute hypoxi
[2021-03-18 13:57] LABS: C-Reactive Protein 68.4 mg/L (0-4)
[2021-03-18 13:59] LABS: NT Pro Brain Natriuretic Pep. 263 pg/mL (0-125)
--- NOTE | 2021-03-18 17:42 | PC.NURSE ---
PT HAS BEEN IN BED MOST OF DAY. HE C/O PAIN N/V/D. PT AMBULATES TO BATHROOM, STATES HE DOES NOT GET SOB WHEN DOING SO. DECREASED PT O2 TO 1L NC, PT TOLERATING WELL. WILL CONT. TO WEAN. VSS. WILL CONT. TO MONITOR.
--- NOTE | 2021-03-18 20:31 | CT_ITS ---
PROCEDURE: CT ANGIO CHEST CLINCIAL INDICATION: sob Covid19 COMPARISON: CT CT ANGIO CHEST from 04/30/2020 TECHNIQUE: IV Contrast: 70ML Isovue 370 Axial images obtained with sagittal and coronal reformats. All CT scans at the facility use one or more dose reduction, viz: automated exposure control, ma/kV adjustment per patient size (including targeted exams where dose is matched to indication, i.e. head), or iterative reconstruction technique. FINDINGS: HEART AND MEDIASTINAL STRUCTURES: There are few mildly prominent mediastinal and hilar lymph nodes which have increased in size. No evidence of pulmonary embolus, aortic aneurysm, or aortic dissection. LUNGS AND PLEURAL SPACES: Multifocal areas of ground-glass attenuation in both upper and lower lobes consistent with atypical pneumonia/Covid19. There are two 6 mm noncalcified nodules present in the left lower lobe unchanged. No pleural effusions BONY STRUCTURES: No acute bony abnormalities apparent. UPPER ABDOMEN: Fatty liver. Splenomegaly at 14 cm. There are few small periportal and epigastric nodes ADDITIONAL FINDINGS: No other significant abnormalities. IMPRESSION: 1. No evidence of pulmonary embolus. 2. Multifocal ground-glass infiltrates consistent with atypical/Covid19 pneumonia 3. Stable left lower lobe nodules Dictated by: Balta Avilez MD 03/18/2021 10:37 Balta Avilez MD in [place] 03/18/2021 10:37
--- NOTE | 2021-03-18 20:32 | PC.NURSE ---
INCREASED O2 TO 2LPM N/C
[2021-03-19] VITALS (15 sets, daily range): BP systolic 130–155; BP diastolic 75–92; PULSE 52–76; RESP 16–20; TEMP 36.3–36.7; O2SAT 93–97; BMI 29.1
--- NOTE | 2021-03-19 03:31 | PC.NURSE ---
No acute changes noted this shift. Pt has remained on 2L O2 NC this shift. O2 sat is 93% this AM. Lungs are diminished t/o. Pt denies any discomfort at this time. No N/V. BS x4. Pt has not had a BM. VSS. No other concerns. Will continue to monitor.
[2021-03-19 06:02] LABS: Basophils % 0.5 % (0.1-2.0); Hemoglobin 13.4 g/dL (14.1-18.0); Lymphocytes # 1.1 K/mm3 (0.7-4.5); Mean Corpuscular Hemoglobin 28.1 pg (27.0-31.2); Mean Corpuscular Volume 87.8 fl (80-94); Mean Platelet Volume 7.7 fl (7.4-10.4); Monocytes # 0.5 K/mm3 (0.1-1.0); Monocytes % 9.4 % (1.7-9.3); Neutrophils # 3.8 K/mm3 (1.8-7.8); Platelet Count 264 K/mm3 (142-424); Red Blood Count 4.78 M/mm3 (4.60-6.20); Red Cell Distribution Width 15.8 % (11.5-17.5); White Blood Count 5.4 K/mm3 (4.8-10.8)
[2021-03-19 06:06] LABS: Chloride 102 mmol/L (98-107); Potassium 4.1 mmoL/L (3.5-5.1); Sodium 140 mmol/L (136-145)
[2021-03-19 06:09] LABS: Anion Gap 12.1 mEq/L (5-15); Blood Urea Nitrogen 22 mg/dl (9-20); Carbon Dioxide 30 mmol/L (22.0-30.0); Creatinine Clearance Estimated 170 mL/min (50-200); Estimated Glomerular Filt Rate 118 ml/min (>60); GFR (African American) 142 ML/MIN (>60)
[2021-03-19 06:10] LABS: Calcium 9.1 mg/dl (8.4-10.2); Glucose 134 mg/dl (74-100)
--- NOTE | 2021-03-19 09:27 | HMH.ACPN2 ---
Internal Medicine - PN: Subj *Date: 03/19/21 *Time: 12:41 Interval history: 55-year-old male patient lying in bed resting quietly with eyes closed, awakens to verbal stimuli. He reports he is feeling better today with less shortness of breath. No visible respiratory distress noted, oxygen saturation 96% on 2 L oxygen Exam Vital signs and Labs for Last 24 Hours: Temp Pulse Resp BP Pulse Ox 97.9 F 52 L 16 136/86 93 L 03/19/21 07:55 03/19/21 07:55 03/19/21 09:01 03/19/21 07:55 03/19/21 07:55 Laboratory Results - last 24 hr 03/18/21 13:31: C-Reactive Protein 68.4 H 03/18/21 13:31: NT-Pro-B Natriuret Pep 263 H 03/19/21 05:48: WBC 5.4, RBC 4.78, Hgb 13.4 L, Hct 42.0, MCV 87.8, MCH 28.1, MCHC 32.0, RDW 15.8, Plt Count 264, MPV 7.7, Neut % (Auto) 70.0, Lymph % (Auto) 20.0, Schleicher % (Auto) 9.4 H, Eos % (Auto) 0.0 L, Baso % (Auto) 0.5, Neut # (Auto) 3.8, Lymph # (Auto) 1.1, Schleicher # (Auto) 0.5, Eos # (Auto) 0.0, Baso # (Auto) 0.0 03/19/21 05:48: Sodium 140, Potassium 4.1, Chloride 102, Carbon Dioxide 30, Anion Gap 12.1, BUN 22 H, Creatinine 0.70 D, Estimated Creat Clear 170, Estimated GFR 118, Est GFR ( Amer) 142 D, Glucose 134 H, Calcium 9.1 I & O for Last 24 hours: Intake & Output 03/16/21 03/17/21 03/18/21 03/19/21 23:59 23:59 23:59 23:59 Intake Total 1120 / 1120 1969 / 1969 Output Total 2024 700 / 700 Balance -905 / -905 1270 / 1270 Weight 230 lb 229 lb 4.492 oz 220 lb - Constitutional no acute distress - *Routine HEENT Exam Head: Present: normocephalic Eye: Present: EOMI ENT: Present: mucous membranes moist - *Routine Neck Exam Present: supple, trachea midline. Absent: tracheal deviation - *Routine Respiratory Exam Present: CTA bilaterally. Absent: accessory muscle use - *Routine Cardiovascular Exam Present: RRR - *Routine Abdominal Exam Present: soft, normoactive bowel sounds. Absent: tenderness, rigid - *Routine Extremities Exam Present: full ROM, pulses intact. Absent: cyanosis, clubbing, edema, calf tenderness - *Routine Skin Exam Present: intact, dry, warm. Absent: cyanosis, erythema - *Routine Neurological Exam Present: alert, oriented X3, normal reflexes. Absent: motor deficit, pronator drift - Routine Psychiatric Exam Present: normal affect, normal thought process. Absent: auditory hallucinations Assessment and Plan (1) Pneumonia due to COVID-19 virus Status: Acute Category: Medical Code(s): U07.1 - COVID-19; J12.82 - Pneumonia due to coronavirus disease 2019 - Assessment and plan all Dx Assessment and Plan for all problems:: Rounded with Dr. De Luna, orders per Dr. De Luna: 1. Continue to wean oxygen 2. Awaiting pulmonology recommendations 3. Continue current medical regimen
--- NOTE | 2021-03-19 11:10 | HMH.PULMPN ---
Internal Medicine - PN: Subj *Date: 03/19/21 *Time: 11:10 Interval history: Acute respiratory events overnight patient continued to improve and had adequate response to Lasix yesterday Exam - Constitutional Constitutional:: Present: no acute distress, comfortable - HENMT Exam HENMT: Present: normocephalic, atraumatic - Eye Exam Eyes:: Present: normal appearance both eyes and related structures - Neck Exam Neck:: Present: normal visual inspection - Respiratory Exam Respiratory:: Present: able to speak in complete sentences, no respiratory distress, normal respiratory effort, crackles - Cardiovascular Exam Cardiac:: Present: S1, S2 - GI Exam GI:: Present: soft - Skin Exam Skin: Present: warm, no rash, dry - Neurological Exam Neurological: Present: alert, awake, normal cognition - Extremities Exam Extremities: Present: no cyanosis, no clubbing, edema Assessment and Plan (1) Pneumonia due to COVID-19 virus Status: Acute Category: Medical Code(s): U07.1 - COVID-19; J12.82 - Pneumonia due to coronavirus disease 2019 - Assessment and plan all Dx Assessment and Plan for all problems:: #Acute hypoxic respiratory failure: #COVID-19 pneumonia: 55-year-old never smoker, no prior respiratory complaints presented to the hospital with worsening fatigue weakness and shortness of breath along with productive phlegm for the last 7 days was diagnosed with COVID-19 pneumonia. Patient also complains of chronic lower extremity swelling that has been significantly worsening since the last week. Denies any known sick contacts. CTA reviewed, did not show evidence of pulmonary embolism however showed bilateral diffuse groundglass/patchy opacities along with stable left lower lobe pulmonary nodules. Echo from this admission normal EF and no regional wall abnormalities, diastolic parameters are not conclusive. Serum total protein elevated at 8.5. Hemodynamically stable. Leukopenia with lymphopenia noted noted. Lactate 1.7 on admission. Patient patient has adequate response to Lasix with significant improvement in bilateral lower extremity edema today decreased to 1+ from previous x-ray. Respiratory status also improved. We will continue current therapy. CRP at 68.4. Plan: -Continue remdesivir and dexamethasone for COVID-19 pneumonia. -Continue levofloxacin for possible community-acquired pneumonia -LABA LAMA inhaler every 6 hours scheduled -Incentive spirometry -Adequate nutrition with strict aspiration precautions -Follow with sputum Gram stain culture and blood cultures -Continue chemical DVT prophylaxis with enoxaparin along with GI ulcer prophylaxis with famotidine IV BID Thank you for involving pulmonary in this patient care. We will continue to follow.
--- NOTE | 2021-03-19 15:28 | PC.NURSE ---
Remains on room air througout shift, no c/o SOA. Remains Afebrile. Independent w/ ADL's. Has sat up in chair majority of shift. PRN norco given for chronic pain per JAN. No needs voiced. Remains in contact/airborne precautions.
--- NOTE | 2021-03-19 20:41 | PC.NURSE ---
PT IS ON RA. O2 IS ON STBY.
[2021-03-20 03:59] VITALS: BP 136/81; PULSE 59; RESP 16; TEMP 36; O2SAT 90
[2021-03-20 04:35] VITALS: O2SAT 94
--- NOTE | 2021-03-20 04:36 | PC.NURSE ---
Pt states he doesn't feel good. Has c/o discomfort x1. Medicated per mar. VSS. Pt has remained on RA this shift with sats in low to mid 90s. Pt requested mid shift to be SL to rest. No other concerns. Call light within reach. Will continue to monitor.
[2021-03-20 05:06] VITALS: BMI 29.1
[2021-03-20 06:11] LABS: Basophils % 0.4 % (0.1-2.0); Chloride 103 mmol/L (98-107); Eosinophils % 0.1 % (0.1-12.0); Hematocrit 40.1 % (42.0-52.0); Hemoglobin 13.4 g/dL (14.1-18.0); Lymphocytes # 1.4 K/mm3 (0.7-4.5); Lymphocytes % 19.7 % (10-50); Mean Corpuscular HGB Conc 33.3 g/dL (31.8-35.4); Mean Corpuscular Hemoglobin 28.7 pg (27.0-31.2); Mean Corpuscular Volume 86.2 fl (80-94); Mean Platelet Volume 7.5 fl (7.4-10.4); Monocytes # 0.5 K/mm3 (0.1-1.0); Monocytes % 7.9 % (1.7-9.3); Platelet Count 304 K/mm3 (142-424); Potassium 3.6 mmoL/L (3.5-5.1); Red Blood Count 4.65 M/mm3 (4.60-6.20); Red Cell Distribution Width 15.7 % (11.5-17.5); Sodium 138 mmol/L (136-145); White Blood Count 6.9 K/mm3 (4.8-10.8)
[2021-03-20 06:14] LABS: Anion Gap 9.6 mEq/L (5-15); Blood Urea Nitrogen 20 mg/dl (9-20); Carbon Dioxide 29 mmol/L (22.0-30.0); Creatinine Clearance Estimated 199 mL/min (50-200); Estimated Glomerular Filt Rate 140 ml/min (>60); GFR (African American) 170 ML/MIN (>60)
[2021-03-20 06:15] LABS: Calcium 9.1 mg/dl (8.4-10.2); Glucose 111 mg/dl (74-100)
[2021-03-20 06:43] VITALS: O2SAT 92
[2021-03-20 07:57] VITALS: BP 148/85; PULSE 61; RESP 18; TEMP 36.3; O2SAT 89
--- NOTE | 2021-03-20 09:19 | SW/DCPLANNER ---
Addendum entered by Roz Lunsford 03/20/21 09:46: Rubi Wheeler stated that portable O2 will be delivered today. Original Note: Patient information/order has been faxed to [facility] for patient to have home O2 + portable. I will follow up with Liam once patient information is reviewed.
--- NOTE | 2021-03-20 10:39 | HMH.PULMPN ---
Internal Medicine - PN: Subj *Date: 03/20/21 *Time: 10:39 Interval history: No acute respiratory events overnight. Patient remained on room air Exam - Constitutional Constitutional:: Present: no acute distress, comfortable - HENMT Exam HENMT: Present: normocephalic, moist mucous membranes - Eye Exam Eyes:: Present: eyelids normal - Neck Exam Neck:: Present: normal visual inspection - Respiratory Exam Respiratory:: Present: able to speak in complete sentences, no respiratory distress, crackles. Absent: accessory muscle use - Cardiovascular Exam Cardiac:: Present: S1, S2 - GI Exam GI:: Present: soft - Skin Exam Skin: Present: warm, no rash, dry - Neurological Exam Neurological: Present: alert, awake, normal cognition - Extremities Exam Extremities: Present: no cyanosis, no clubbing, no edema - Psychiatric Exam Psychiatric: Present: normal affect Assessment and Plan (1) Pneumonia due to COVID-19 virus Status: Acute Category: Medical Code(s): U07.1 - COVID-19; J12.82 - Pneumonia due to coronavirus disease 2019 - Assessment and plan all Dx Assessment and Plan for all problems:: #Acute hypoxic respiratory failure: #COVID-19 pneumonia: 55-year-old never smoker, no prior respiratory complaints presented to the hospital with worsening fatigue weakness and shortness of breath along with productive phlegm for the last 7 days was diagnosed with COVID-19 pneumonia. Patient also complains of chronic lower extremity swelling that has been significantly worsening since the last week. Denies any known sick contacts. CTA reviewed, did not show evidence of pulmonary embolism however showed bilateral diffuse groundglass/patchy opacities along with stable left lower lobe pulmonary nodules. Echo from this admission normal EF and no regional wall abnormalities, diastolic parameters are not conclusive. Serum total protein elevated at 8.5. Hemodynamically stable. Leukopenia with lymphopenia noted noted. Lactate 1.7 on admission. CRP at 68.4. Patient got 1 dose of Lasix this admission significant improvement in his respiratory status and lower extremity edema. He continued to receive remdesivir dexamethasone levofloxacin significant improvement, patient today on room air without any respiratory distress. Plan: -Continue remdesivir and dexamethasone for COVID-19 pneumonia, can be discontinued on discharge -Continue levofloxacin for possible community-acquired pneumonia for a total of 5 days -Continue Combivent every 6 hours as needed -Incentive spirometry Thank you for involving pulmonary in this patient care. We will follow the patient in pulmonary clinic in 4 to 6 weeks with a full PFTs and 6-minute walk testing.
--- NOTE | 2021-03-20 11:57 | HMH.DCSUM ---
General - General Admission date:: 03/17/21 Discharge date: 03/20/21 HPI HPI: Mr. Saavedra is a 55-year-old male presented to emergency department complaining of worsening cough and shortness of breath for the last 1 week. Patient states he has been running a fever since . ,Nonproductive cough, body aches,and Slight sore throat. Pt states he has had a poor appetite, not eating or drinking much and he almost passed out yesterday. Seen in the office on Thursday, 2 days ago, and given a shot of antibiotics and steroids for the symptoms, has not improved. Patient admitted for covid pneumonia Hospital Course Hospital Course: Mr. Saavedra is a 55-year-old male presented to emergency department complaining of worsening cough and shortness of breath for the last 1 week. Patient states he has been running a fever since . ,Nonproductive cough, body aches,and Slight sore throat. Pt states he has had a poor appetite, not eating or drinking much and he almost passed out yesterday. Seen in the office on Thursday, 2 days ago, and given a shot of antibiotics and steroids for the symptoms, has not improved. Patient admitted for covid pneumonia 03/17/21 CXR: FINDINGS: There is cardiomegaly without failure. Infiltrate is present in the the mid lower lung zones on both sides left more extensive than right. No obvious effusion. No acute bony abnormalities. IMPRESSION: Bilateral pneumonia Dictated by: Raghav, 03/18/21 ECHO:Conclusion 1. Mild biatrial enlargement, normal left ventricular size, visually estimated ejection fraction 55% with no regional wall motion abnormality. Diastolic parameters are inconclusive. 2. Mildly enlarged right ventricle with normal contractility. 3. Trace mitral and tricuspid regurgitation. 4. No significant pericardial effusion noted. Electronically signed by : Andrei Murphy, Conclusion 03/18/21 Chest CTA: FINDINGS: HEART AND MEDIASTINAL STRUCTURES: There are few mildly prominent mediastinal and hilar lymph nodes which have increased in size. No evidence of pulmonary embolus, aortic aneurysm, or aortic dissection. LUNGS AND PLEURAL SPACES: Multifocal areas of ground-glass attenuation in both upper and lower lobes consistent with atypical pneumonia/Covid19. There are two 6 mm noncalcified nodules present in the left lower lobe unchanged. No pleural effusions BONY STRUCTURES: No acute bony abnormalities apparent. UPPER ABDOMEN: Fatty liver. Splenomegaly at 14 cm. There are few small periportal and epigastric nodes ADDITIONAL FINDINGS: No other significant abnormalities. IMPRESSION: 1. No evidence of pulmonary embolus. 2. Multifocal ground-glass infiltrates consistent with atypical/Covid19 pneumonia 3. Stable left lower lobe nodules Dictated by: Raghav, Lab work is on unremarkable He has tolerated meals and has been up in room walking around without any respiratory distress During his stay he did receive 1 dose of Lasix IV with good diuresis. And he has also received remdesivir and dexamethasone for COVID-19 pneumonia, that will be stopped upon discharge Pulmonary has seen and rec: Plan: -Continue remdesivir and dexamethasone for COVID-19 pneumonia, can be discontinued on discharge -Continue levofloxacin for possible community-acquired pneumonia for a total of 5 days -Continue Combivent every 6 hours as needed -Incentive spirometry We will follow the patient in pulmonary clinic in 4 to 6 weeks with a full PFTs and 6-minute walk testing. 55-year-old male patient sitting up in bed resting quietly, he reports he is feeling better less shortness of breath denies chest pain or any respiratory distress during the evening. Room air oxygenation is 92%, discussed discharge home today he is agreement with this PLAN: 1. Discharge home today 2. Levaquin 750 mg daily x2 days 3. Follow-up with PCP in 1 week 3. Follow-up with pulmonology in 1 week Objectiv
[2021-03-20 12:00] VITALS: BP 128/76; PULSE 74; RESP 18; TEMP 36.5; O2SAT 96
--- NOTE | 2021-03-20 14:35 | PC.NURSE ---
THIS RN PROVIDED DISCHARGE INSTRUCTIONS TO PATIENT IN REGARDS TO USE OF HOME O2, ENCOURAGED PATIENT TO SLEEP IN A PRONE POSITION WHEN AT HOME AND PROVIDED INFORMATION ON COVID RESTRICITONS. PATIENT VERBALIZED AN OKAY. NO NEW NEEDS OR CONCERNS UPON DISCHARGE.
== END 2021-03-20 14:33 | disposition home or self-care (01) | DRG 177 ==
LOC: ER 18:04 → 2ND 19:25
PROVIDERS: Internal Medicine Pulmonary Disease; Nurse Practitioner Family; Admitting Provider Internal Medicine Adolescent Medicine; Emergency Provider Emergency Medicine; PCP Emergency Medicine; Visit Provider Emergency Medicine
DX: U07.1 COVID-19 (principal); J12.82 Pneumonia due to coronavirus disease 2019; J96.01 Acute respiratory failure with hypoxia; F17.220 Nicotine dependence, chewing tobacco, uncomplicated; Z88.2 Allergy status to sulfonamides; K21.9 Gastro-esophageal reflux disease without esophagitis; E78.5 Hyperlipidemia, unspecified; I10 Essential (primary) hypertension; Z87.442 Personal history of urinary calculi; Z88.8 Allergy status to other drugs, medicaments and biological substances
CPT/HCPCS: 36415; 71045; 71275; 80048; 80053; 83605; 83880; 85025; 86140; 87040; 93306; 94640; 94760; 96365; 96367; 99284; J1956; Q9967; U0003

== ENCOUNTER → 2021-04-17 19:06 | Outpatient (CLI) | payer OTHER, SELFPAY ==
[2021-04-17 19:59] LABS: Barbiturates Screen,Urine Negative ng/ml (<200)
[2021-04-17 20:00] LABS: Benzodiazepines Screen,Urine Negative ng/ml (<200); Cannabinoid Screen,Urine Negative ng/ml (<50)
[2021-04-17 20:01] LABS: Cocaine Screen,Urine Negative ng/ml (<300); Methadone Screen,Urine Negative ng/ml (<300)
[2021-04-17 20:03] LABS: Phencyclidine Screen,Urine Negative ng/ml (<25)
[2021-04-17 20:26] LABS: Amphetamine/Metha Screen,Urine Negative ng/ml (<1000)
[2021-04-17 21:18] LABS: Opiate Screen,Urine Positive ng/ml (<300)
== END ==
PROVIDERS: Visit Provider Emergency Medicine
DX: M54.16 Radiculopathy, lumbar region (principal)
CPT/HCPCS: 80305

== ENCOUNTER → 2021-05-17 07:46 | Outpatient (CLI) | payer OTHER, SELFPAY | PROVIDERS: PCP Emergency Medicine; Visit Provider Internal Medicine Pulmonary Disease | DX: R06.00 Dyspnea, unspecified (principal) | CPT/HCPCS: 94060; 94618; 94726; 94729 ==

== ENCOUNTER → 2021-06-14 17:48 | Outpatient (CLI) | payer OTHER, SELFPAY ==
[2021-06-14 18:47] LABS: Amphetamine/Metha Screen,Urine Negative ng/ml (<1000)
[2021-06-14 18:50] LABS: Barbiturates Screen,Urine Negative ng/ml (<200); Benzodiazepines Screen,Urine Negative ng/ml (<200)
[2021-06-14 18:51] LABS: Cannabinoid Screen,Urine Negative ng/ml (<50)
[2021-06-14 18:52] LABS: Cocaine Screen,Urine Negative ng/ml (<300); Methadone Screen,Urine Negative ng/ml (<300)
[2021-06-14 18:53] LABS: Opiate Screen,Urine Positive ng/ml (<300); Phencyclidine Screen,Urine Negative ng/ml (<25)
== END ==
PROVIDERS: Visit Provider Emergency Medicine
DX: Z79.899 Other long term (current) drug therapy (principal)
CPT/HCPCS: 80305

== ENCOUNTER → 2021-08-12 17:48 | Outpatient (CLI) | payer OTHER, SELFPAY ==
[2021-08-12 18:56] LABS: Amphetamine/Metha Screen,Urine Negative ng/ml (<1000)
[2021-08-12 18:57] LABS: Barbiturates Screen,Urine Negative ng/ml (<200); Benzodiazepines Screen,Urine Negative ng/ml (<200)
[2021-08-12 18:58] LABS: Cannabinoid Screen,Urine Negative ng/ml (<50)
[2021-08-12 18:59] LABS: Cocaine Screen,Urine Negative ng/ml (<300); Methadone Screen,Urine Negative ng/ml (<300)
[2021-08-12 19:00] LABS: Opiate Screen,Urine Positive ng/ml (<300)
[2021-08-12 19:01] LABS: Phencyclidine Screen,Urine Negative ng/ml (<25)
== END ==
PROVIDERS: Visit Provider Emergency Medicine
DX: Z79.899 Other long term (current) drug therapy (principal)
CPT/HCPCS: 80305

== ENCOUNTER → 2021-10-11 18:06 | Outpatient (CLI) | payer OTHER, SELFPAY ==
[2021-10-11 21:53] LABS: Amphetamine/Metha Screen,Urine Negative ng/ml (<1000); Barbiturates Screen,Urine Negative ng/ml (<200)
[2021-10-11 21:55] LABS: Benzodiazepines Screen,Urine Negative ng/ml (<200)
[2021-10-11 21:56] LABS: Cannabinoid Screen,Urine Negative ng/ml (<50); Cocaine Screen,Urine Negative ng/ml (<300)
[2021-10-11 21:57] LABS: Methadone Screen,Urine Negative ng/ml (<300)
[2021-10-11 21:58] LABS: Opiate Screen,Urine Positive ng/ml (<300); Phencyclidine Screen,Urine Negative ng/ml (<25)
== END ==
PROVIDERS: Visit Provider Emergency Medicine
DX: M54.16 Radiculopathy, lumbar region (principal)
CPT/HCPCS: 80305

== ENCOUNTER → 2022-02-11 16:00 | Outpatient (CLI) | payer OTHER, SELFPAY ==
[2022-02-11 18:42] LABS: Amphetamine/Metha Screen,Urine Negative ng/ml (<1000)
[2022-02-11 18:44] LABS: Benzodiazepines Screen,Urine Negative ng/ml (<200); Cannabinoid Screen,Urine Negative ng/ml (<50)
[2022-02-11 18:45] LABS: Cocaine Screen,Urine Negative ng/ml (<300); Methadone Screen,Urine Negative ng/ml (<300)
[2022-02-11 18:47] LABS: Opiate Screen,Urine Positive ng/ml (<300); Phencyclidine Screen,Urine Negative ng/ml (<25)
[2022-02-11 18:54] LABS: Barbiturates Screen,Urine Negative ng/ml (<200)
== END ==
PROVIDERS: Visit Provider Emergency Medicine
DX: M54.16 Radiculopathy, lumbar region (principal)
CPT/HCPCS: 80305

== ENCOUNTER → 2022-04-09 12:30 | Outpatient (CLI) | payer OTHER, SELFPAY ==
[2022-04-09 17:30] LABS: Amphetamine/Metha Screen,Urine Negative ng/ml (<1000)
[2022-04-09 17:32] LABS: Cannabinoid Screen,Urine Negative ng/ml (<50)
[2022-04-09 17:33] LABS: Barbiturates Screen,Urine Negative ng/ml (<200); Benzodiazepines Screen,Urine Negative ng/ml (<200)
[2022-04-09 17:34] LABS: Cocaine Screen,Urine Negative ng/ml (<300)
[2022-04-09 17:35] LABS: Methadone Screen,Urine Negative ng/ml (<300); Opiate Screen,Urine Positive ng/ml (<300)
[2022-04-09 17:36] LABS: Phencyclidine Screen,Urine Negative ng/ml (<25)
== END ==
PROVIDERS: Visit Provider Emergency Medicine
DX: Z79.899 Other long term (current) drug therapy (principal)
CPT/HCPCS: 80305

== ENCOUNTER → 2022-08-11 07:22 | Outpatient (CLI) | payer OTHER, SELFPAY ==
[2022-08-11 21:24] LABS: Amphetamine/Metha Screen,Urine Negative ng/ml (<1000)
[2022-08-11 21:25] LABS: Barbiturates Screen,Urine Negative ng/ml (<200)
[2022-08-11 21:30] LABS: Benzodiazepines Screen,Urine Negative ng/ml (<200)
[2022-08-11 21:33] LABS: Cannabinoid Screen,Urine Negative ng/ml (<50); Cocaine Screen,Urine Negative ng/ml (<300)
[2022-08-11 21:34] LABS: Methadone Screen,Urine Negative ng/ml (<300)
[2022-08-11 21:35] LABS: Opiate Screen,Urine Positive ng/ml (<300); Phencyclidine Screen,Urine Negative ng/ml (<25)
== END ==
PROVIDERS: PCP Emergency Medicine; Visit Provider Emergency Medicine
DX: Z79.899 Other long term (current) drug therapy (principal)
CPT/HCPCS: 80305

== ENCOUNTER → 2022-10-10 14:04 | Outpatient (CLI) | payer OTHER, SELFPAY ==
[2022-10-10 20:09] LABS: Amphetamine/Metha Screen,Urine Negative ng/ml (<1000); Barbiturates Screen,Urine Negative ng/ml (<200)
[2022-10-10 20:11] LABS: Benzodiazepines Screen,Urine Negative ng/ml (<200)
[2022-10-10 20:12] LABS: Cannabinoid Screen,Urine Negative ng/ml (<50)
[2022-10-10 20:13] LABS: Cocaine Screen,Urine Negative ng/ml (<300); Methadone Screen,Urine Negative ng/ml (<300)
[2022-10-10 20:14] LABS: Opiate Screen,Urine Positive ng/ml (<300)
[2022-10-10 20:15] LABS: Phencyclidine Screen,Urine Negative ng/ml (<25)
== END ==
PROVIDERS: PCP Emergency Medicine; Visit Provider Emergency Medicine
DX: Z79.899 Other long term (current) drug therapy (principal)
CPT/HCPCS: 80305

== ENCOUNTER → 2022-12-09 15:50 | Outpatient (CLI) | payer OTHER, SELFPAY ==
[2022-12-09 19:17] LABS: Basophils # 0.1 K/mm3 (0-0.2); Eosinophils # 0.2 K/mm3 (0.0-0.4); Eosinophils % 2.8 % (0.1-12.0); Hematocrit 45.6 % (42.0-52.0); Lymphocytes # 1.8 K/mm3 (0.7-4.5); Lymphocytes % 27.8 % (10-50); Mean Corpuscular HGB Conc 32.9 g/dL (31.8-35.4); Mean Corpuscular Hemoglobin 30.4 pg (27.0-31.2); Mean Corpuscular Volume 92.4 fl (80-94); Mean Platelet Volume 7.7 fl (7.4-10.4); Monocytes # 0.4 K/mm3 (0.1-1.0); Monocytes % 5.7 % (1.7-9.3); Neutrophils # 4.1 K/mm3 (1.8-7.8); Neutrophils % 62.7 % (37.0-80.0); Platelet Count 325 K/mm3 (142-424); Red Blood Count 4.94 M/mm3 (4.60-6.20); Red Cell Distribution Width 13.9 % (11.5-17.5); White Blood Count 6.5 K/mm3 (4.8-10.8)
[2022-12-09 19:18] LABS: Alanine Aminotransferase 21 U/L (12-78); Albumin Level 4.2 g/dl (3.5-5.0); Albumin/Globulin Ratio 1.3 (1.1-1.8); Alkaline Phosphatase 117 U/L (38-126); Aspartate Amino Transferase 36 U/L (17-59); Bilirubin,Total 0.5 mg/dl (0.2-1.3); Blood Urea Nitrogen 17 mg/dl (9-20); Calcium 8.9 mg/dl (8.4-10.2); Carbon Dioxide 31 mmol/L (22.0-30.0); Chloride 102 mmol/L (98-107); Chol/HDL Ratio 4.3 (1-3.5); Cholesterol 187 mg/dl (140-200); Estimated Glomerular Filt Rate 117 ml/min (>60); GFR (African American) 141 ML/MIN (>60); Globulin 3.3 g/dL (1.3-3.2); Glucose 94 mg/dl (74-100); HDL Cholesterol 43 mg/dl (40-60); Sodium 141 mmol/L (136-145); Total Protein,Serum 7.5 g/dl (6.3-8.2); Triglycerides 165 mg/dl (30-150); VLDL Cholesterol 33 mg/dL (0-40)
[2022-12-09 19:29] LABS: Direct LDL Cholesterol 104.32 mg/dL (100-129)
[2022-12-09 19:34] LABS: Free T4 (Free Thyroxine) 1.17 ng/dl (0.78-2.19)
[2022-12-09 19:48] LABS: Prostate Specific Ag Screen 0.7 ng/ml (0.0-4.0); Thyroid Stimulating Hormone 1.79 uIU/mL (0.465-4.68)
[2022-12-09 21:08] LABS: 25-OH Vitamin D, Total < 12.8 ng/mL (30-100)
[2022-12-11 09:29] LABS: Testosterone,Total 243 ng/dL (264-916)
== END ==
PROVIDERS: PCP Emergency Medicine; Visit Provider Emergency Medicine
DX: S30.1XXA Contusion of abdominal wall, initial encounter (principal); E55.9 Vitamin D deficiency, unspecified; E66.9 Obesity, unspecified; Z68.30 Body mass index [BMI] 30.0-30.9, adult; Z79.899 Other long term (current) drug therapy; Z12.5 Encounter for screening for malignant neoplasm of prostate
CPT/HCPCS: 80053; 80061; 82306; 84403; 84439; 84443; 85025; G0103

== ENCOUNTER → 2023-05-29 15:15 | Outpatient (CLI) | payer OTHER, SELFPAY ==
[2023-05-29 21:07] LABS: Amphetamine/Metha Screen,Urine Negative ng/ml (<1000); Barbiturates Screen,Urine Negative ng/ml (<200)
[2023-05-29 21:08] LABS: Benzodiazepines Screen,Urine Negative ng/ml (<200)
[2023-05-29 21:09] LABS: Cannabinoid Screen,Urine Negative ng/ml (<50)
[2023-05-29 21:10] LABS: Cocaine Screen,Urine Negative ng/ml (<300); Methadone Screen,Urine Negative ng/ml (<300)
[2023-05-29 21:11] LABS: Opiate Screen,Urine Positive ng/ml (<300)
[2023-05-29 21:13] LABS: Phencyclidine Screen,Urine Negative ng/ml (<25)
== END ==
PROVIDERS: PCP Emergency Medicine; Visit Provider Emergency Medicine
DX: Z79.899 Other long term (current) drug therapy (principal)
CPT/HCPCS: 80305

== ENCOUNTER → 2023-07-29 12:00 | Outpatient (CLI) | payer OTHER, SELFPAY ==
[2023-07-29 20:24] LABS: Barbiturates Screen,Urine Negative ng/ml (<200)
[2023-07-29 20:25] LABS: Amphetamine/Metha Screen,Urine Negative ng/ml (<1000)
[2023-07-29 20:26] LABS: Cocaine Screen,Urine Negative ng/ml (<300)
[2023-07-29 20:27] LABS: Benzodiazepines Screen,Urine Negative ng/ml (<200); Cannabinoid Screen,Urine Negative ng/ml (<50)
[2023-07-29 20:28] LABS: Phencyclidine Screen,Urine Negative ng/ml (<25)
[2023-07-29 20:29] LABS: Methadone Screen,Urine Negative ng/ml (<300); Opiate Screen,Urine Positive ng/ml (<300)
== END ==
PROVIDERS: PCP Emergency Medicine; Visit Provider Emergency Medicine
DX: Z79.899 Other long term (current) drug therapy (principal)
CPT/HCPCS: 80305

== ENCOUNTER → 2023-08-21 06:44 | Outpatient (CLI) | payer OTHER, SELFPAY ==
--- NOTE | 2023-08-21 | CA_ITS ---
APPROVED REPORT Exam: Pharmacologic Technologist: Barbara Zarate, Ht: 6 ft 0 in Wt: 210 lbs BSA: 2.18 m2 HR: 68 bpm BP: 154/100 mmHg Rhythm: NSR,PVC'S,T WAVE ABNORMALITIES INLEAD aVL,NONSPECIFIC ST-T ABNORMALITIES ANTERIORLY Medical History Medical History: HTN Medications: Lisinopril,,,,, Asa,,,,, Hydrocodone,,,,, Gabapentin,,,,, Pantoprazole,,,,, Escitalopram,,,,, Duoneb,,,,, ADVAIR,,,,, Vit D3,,,,, KloNOPIN,,,,, DOcusate,,,,, Testosterone,,,,, Allergies: SULFA,TRIMETHOPRIN Cardiac Risk Factors: HTN Stress Test Details Test: LEXISCAN Reason for pharmacologic stress test: physical limitation. HR Resting HR: 69 bpm Max Heart Rate (APMHR): 164 bpm Max HR Achieved: 99 bpm Target HR (85% APMHR): 139 bpm % of APMHR: 60 Recovery HR: 80 bpm BP Resting BP: 154.0/100.0 mmHg Max BP: 154.0/100.0 mmHg Recovery BP: 144.0/88.0 mmHg ECG Resting ECG: NSR,PVC'S,T WAVE ABNORMALITIES, NONSPECIFIC ST-T ABNORMALITIES ANTERIORLY Stress ECG: Nonspecific ST changes Arrhythmia: PVCs Clinical Exercise duration: 04:09 min Highest Stage Achieved: Stress ECG Conclusion DURING INFUSION PATIENT HAD NECK TIGHTNESS AND MILD CHEST DISCOMFORT WITH SOA. ECTOPY/ARRHYTHMIA: OCCASIONAL PVCS. NO SIGNIFICANT ST-T CHANGES. CONCLUSION UNREMARKABLE LEXISCAN STRESS TEST. MYOVIEW IMAGES REPORTED SEPARATELY Test Summary REST . . . . . . . Sitting REST 05:06 . . 69 . 154/100 . . Stage 1 . . . . . . . Myoview Injected Stage 1 01:00 . . 97 . . . . Stage 2 01:00 . . 90 . 136/ 96 . . Stage 3 01:00 . . 87 . 136/ 88 . . Stage 4 01:00 . . 76 . 142/ 99 . . Stage 4 01:09 . . 76 . 142/ 99 . Stop exercise at 04:09 RECOVERY 01:00 . . 78 . 146/ 91 . . RECOVERY 02:00 . . 76 . 144/ 88 . . RECOVERY 03:00 . . 74 . 144/ 88 . . RECOVERY 03:52 . . 74 . 148/ 96 . . Electronically signed by : Stacy Campos MD 08/23/2023 22:26:20
--- NOTE | 2023-08-21 06:47 | NM_ITS ---
APPROVED REPORT Exam: Nuclear Stress Test Indication: soa..syncope..palpitations..high bp..tobacco use Patient Location: Outpatient Stress Tech: Christina Zarate [place] Tech:AKILAH Middleton RT(R)(N) Ht: 6 ft 1 in Wt: 218 lbs HR: 69 bpm BP: 154/100 mmHg BSA: 2.23 m2 Rhythm: NSR TID: 1.00 BMI: 28.7 History: soa..syncope..palpitations..high bp..tobacco use Procedure: Patient received 0.4 mg of intravenous Lexiscan, resting heart rate 69 bpm, resting blood pressure 154/100 mmHg, with Lexiscan maximum heart rate achieved was 99 bpm which is 85 % of the maximum predicted heart rate and blood pressure was 154/100 mmHg. With Lexiscan, patient denied any complaint of chest pain. Cardiac Stress and Resting SPECT Images: Cardiac Stress and Resting SPECT images were obtained using technetium 99m Myoview 30.6 mCi stress and 10.70 mCi at rest. Raw imaging demonstrates significant overlap of the diaphragm with the inferior LV border. This may affect the diagnostic interpretation of the study findings. Resting and stress imaging in supine position demonstrate a medium sized, mild, fixed perfusion defect in the inferior LV wall. This is no longer visualized with prone stress imaging. Findings are suggestive of possible there is also diaphragmatic attenuation. A small sized, moderate, fixed perfusion defect in the basal lateral LV wall. Gated imaging demonstrates low-normal global and regional LV systolic function. LVEF is calculated at 50%. Conclusion: Diaphragmatic attenuation is present. Small sized, moderate, fixed perfusion defect in the basal lateral LV wall. No evidence of reversible ischemia. Gated imaging demonstrates low-normal global and regional LV systolic function. LVEF is calculated at 50%. Due to borderline LVEF, further evaluation with cardiac MRI (cardiomyopathy protocol) is recommended to evaluate for possible cardiomyopathy and accurate quantification of LVEF. Electronically signed by : Stacy Campos MD 08/23/2023 22:32:05
== END ==
LOC: RAD 06:44
PROVIDERS: PCP Emergency Medicine; Visit Provider Emergency Medicine
DX: R07.9 Chest pain, unspecified (principal)
CPT/HCPCS: 78452; 93017; A9502; J2785

== ENCOUNTER → 2023-09-11 13:16 | Outpatient (CLI) | payer OTHER, SELFPAY ==
--- NOTE | 2023-09-11 13:18 | CA_ITS ---
APPROVED REPORT EXAM: Comprehensive 2D, Doppler, and color-flow Echocardiogram Care Coordination Manager: Martha Rodriguez RT(R) Ht: 6 ft 0 in Wt: 218lbs BSA: 2.21 BP: 128/62 mmHg Indications: CP, Fatigue, HTN, syncope 1 month ago 2D Dimensions LVOT 1.93 cm (M/F) 1.5-2.5 LVEF (Lentz's) 63.70 % M: 52 - 72 LV Volume 113.20 mL M: 62 - 150 LV Volume Index 51.22 mL/m2 M: 34 - 74 LA Volume 35.80 mL LA Volume Index 16.20 mL/m2 (M/F) 16-34 M-Mode Dimensions RVDd 2.70 cm (0.9-2.6) LA Diam 2.91 cm (1.9-4.0) LVDd 4.88 cm (3.5-5.7) Ao Diam 3.91 cm (2.0-3.7) LVDs 3.93 cm (3.5-5.7) IVSd 0.59 cm (0.6-1.1) PWd 0.73 cm (0.6-1.1) EF (Teich) 39.90% FS 19.50% EDV (Teich) 111.70 mL ESV (Teich) 67.10 mL LV Diastology E Decel Time 213.00 (160-240 msec) E/A Ratio 0.9 MED E' 8.80 (< 7 cm/sec) E'/MED E' Ratio 9.42 (>14) LAT E' 9.80 (<10 cm/sec) E/LAT E' Ratio 8.46 (>14) Mitral Valve MV E Max [place]. 83.00 (40-130 cm/s) MV A Velocity 96.00 (40-130 cm/s) E/A Ratio 0.86 MV Decel. Time 213.00 (160-240 ms) MV PHT 62.00 ms Left Ventricle The left ventricle is normal size. The left ventricular systolic function is normal. The left ventricular ejection fraction is within the normal range. There is normal left ventricular wall thickness. There is normal LV segmental wall motion. The left ventricular diastolic function is normal. LVEF is 60%. Normal biventricular systolic function. Right Ventricle The right ventricle is normal size. The right ventricular systolic function is normal. Atria The left atrium size is normal. The right atrium size is normal. Aortic Valve The aortic valve opens well. There is no aortic valvular stenosis. No aortic regurgitation is present. Mitral Valve The mitral valve is normal in structure. No evidence of mitral valve stenosis. Trace mitral regurgitation. Tricuspid Valve The tricuspid valve leaflets are thin and pliable. Trace tricuspid regurgitation. There is insufficient TR jet to estimate RVSP. Pulmonic Valve The pulmonary valve is normal in structure. Trace pulmonic regurgitation. Great Vessels The aortic root is normal in size. The ascending aorta is normal in size. IVC is normal in size and collapses >50% with inspiration. Pericardium There is no pericardial effusion. Other Information Study Quality: Fair Conclusion Normal biventricular systolic function. No significant valvular stenosis or regurgitation. Electronically signed by : Stacy Campos MD 09/13/2023 21:51:42
== END ==
LOC: RT 13:17
PROVIDERS: PCP Emergency Medicine; Visit Provider Emergency Medicine
DX: R07.9 Chest pain, unspecified (principal)
CPT/HCPCS: 93306

== ENCOUNTER → 2023-09-25 14:55 | Outpatient (CLI) | payer OTHER, SELFPAY ==
[2023-09-25 18:44] LABS: Amphetamine/Metha Screen,Urine Negative ng/ml (<1000); Barbiturates Screen,Urine Negative ng/ml (<200)
[2023-09-25 18:45] LABS: Benzodiazepines Screen,Urine Negative ng/ml (<200)
[2023-09-25 18:46] LABS: Cannabinoid Screen,Urine Negative ng/ml (<50); Cocaine Screen,Urine Negative ng/ml (<300)
[2023-09-25 18:47] LABS: Methadone Screen,Urine Negative ng/ml (<300)
[2023-09-25 18:48] LABS: Opiate Screen,Urine Positive ng/ml (<300); Phencyclidine Screen,Urine Negative ng/ml (<25)
== END ==
PROVIDERS: PCP Emergency Medicine; Visit Provider Emergency Medicine
DX: Z79.899 Other long term (current) drug therapy (principal)
CPT/HCPCS: 80305

== ENCOUNTER → 2023-11-20 09:22 | Outpatient (CLI) | payer OTHER, SELFPAY ==
[2023-11-20 18:57] LABS: Amphetamine/Metha Screen,Urine Negative ng/ml (<1000); Barbiturates Screen,Urine Negative ng/ml (<200)
[2023-11-20 18:58] LABS: Benzodiazepines Screen,Urine Negative ng/ml (<200)
[2023-11-20 18:59] LABS: Cannabinoid Screen,Urine Negative ng/ml (<50); Cocaine Screen,Urine Negative ng/ml (<300)
[2023-11-20 19:00] LABS: Methadone Screen,Urine Negative ng/ml (<300); Opiate Screen,Urine Positive ng/ml (<300)
[2023-11-20 19:02] LABS: Phencyclidine Screen,Urine Negative ng/ml (<25)
== END ==
LOC: LAB.DROPOF 11-21 09:22
PROVIDERS: PCP Nurse Practitioner Family; Visit Provider Nurse Practitioner Family
DX: Z79.899 Other long term (current) drug therapy (principal)
CPT/HCPCS: 80307

== ENCOUNTER 2023-12-17 21:33 | Outpatient (CLI) | payer OTHER, SELFPAY ==
[2023-12-17 18:56] LABS: Basophils # 0.1 K/mm3 (0-0.2); Basophils % 0.8 % (0.1-2.0); Eosinophils # 0.2 K/mm3 (0.0-0.4); Eosinophils % 3.2 % (0.1-12.0); Hematocrit 40.1 % (42.0-52.0); Hemoglobin 13.8 g/dL (14.1-18.0); Lymphocytes # 1.4 K/mm3 (0.7-4.5); Lymphocytes % 18.4 % (10-50); Mean Corpuscular HGB Conc 34.4 g/dL (31.8-35.4); Mean Corpuscular Hemoglobin 31.1 pg (27.0-31.2); Mean Corpuscular Volume 90.6 fl (80-94); Mean Platelet Volume 8.3 fl (7.4-10.4); Monocytes # 0.8 K/mm3 (0.1-1.0); Monocytes % 10.8 % (1.7-9.3); Neutrophils % 66.8 % (37.0-80.0); Platelet Count 311 K/mm3 (142-424); Red Blood Count 4.42 M/mm3 (4.60-6.20); Red Cell Distribution Width 13.5 % (11.5-17.5); White Blood Count 7.5 K/mm3 (4.8-10.8)
[2023-12-17 18:58] LABS: Chloride 97 mmol/L (98-107); Potassium 3.6 mmoL/L (3.5-5.1); Sodium 135 mmol/L (136-145)
[2023-12-17 19:01] LABS: Alanine Aminotransferase 28 U/L (12-78); Albumin Level 3.8 g/dl (3.5-5.0); Albumin/Globulin Ratio 1.1 (1.1-1.8); Alkaline Phosphatase 115 U/L (38-126); Anion Gap 11.6 mEq/L (5-15); Aspartate Amino Transferase 37 U/L (17-59); Blood Urea Nitrogen 12 mg/dl (9-20); Calcium 9.1 mg/dl (8.4-10.2); Carbon Dioxide 30 mmol/L (22.0-30.0); Cholesterol 175 mg/dl (140-200); Estimated Glomerular Filt Rate 116 ml/min (>60); GFR (African American) 141 ML/MIN (>60); Globulin 3.4 g/dL (1.3-3.2); Glucose 121 mg/dl (74-100); Total Protein,Serum 7.2 g/dl (6.3-8.2); Triglycerides 84 mg/dl (30-150); VLDL Cholesterol 17 mg/dL (0-40)
[2023-12-17 19:02] LABS: Chol/HDL Ratio 5.8 (1-3.5); HDL Cholesterol 30 mg/dl (40-60)
[2023-12-17 19:22] LABS: 25-OH Vitamin D, Total 64.3 ng/mL (30-100)
[2023-12-17 19:27] LABS: Direct LDL Cholesterol 115.54 mg/dL (100-129)
[2023-12-17 19:35] LABS: Thyroid Stimulating Hormone 2.23 uIU/mL (0.465-4.68)
[2023-12-17 19:51] LABS: Prostate Specific Ag Screen 0.7 ng/ml (0.0-4.0)
[2023-12-17 22:03] LABS: Amphetamine/Metha Screen,Urine Negative ng/ml (<1000)
[2023-12-17 22:04] LABS: Barbiturates Screen,Urine Negative ng/ml (<200); Benzodiazepines Screen,Urine Negative ng/ml (<200)
[2023-12-17 22:07] LABS: Opiate Screen,Urine Positive ng/ml (<300); Phencyclidine Screen,Urine Negative ng/ml (<25)
[2023-12-17 22:57] LABS: Cannabinoid Screen,Urine Negative ng/ml (<50)
[2023-12-17 23:00] LABS: Cocaine Screen,Urine Negative ng/ml (<300)
[2023-12-17 23:01] LABS: Methadone Screen,Urine Negative ng/ml (<300)
[2023-12-28 13:09] LABS: Alprazolam Negative (Cutoff=100); Benzodiazepines Negative ng/mL (Cutoff=100); Clonazepam Negative (Cutoff=100); Codeine Negative (Cutoff=100); Flurazepam Negative (Cutoff=100); Hydrocodone Positive (.); Hydromorphone Negative (Cutoff=100); Lorazepam Negative (Cutoff=100); Midazolam Negative (Cutoff=100); Morphine Negative (Cutoff=100); Opiates Positive (.); Temazepam Negative (Cutoff=100); Triazolam Negative (Cutoff=100)
== END 2023-12-17 23:59 ==
LOC: LAB.DROPOF 21:34
PROVIDERS: PCP Family Medicine; Visit Provider Family Medicine
DX: I10 Essential (primary) hypertension (principal); Z79.899 Other long term (current) drug therapy; Z12.5 Encounter for screening for malignant neoplasm of prostate
CPT/HCPCS: 80053; 80061; 80307; 80346; 80361; 80365; 82306; 84443; 85025; G0103; G0480

== ENCOUNTER 2024-01-24 02:52 | Emergency (ER) | payer OTHER, SELFPAY ==
[2024-01-24] VITALS (30 sets, daily range): BP systolic 84–133; BP diastolic 55–81; PULSE 73–99; RESP 14–20; TEMP 36.3–36.7; O2SAT 94–100; BMI 28.8
--- NOTE | 2024-01-24 03:05 | ECG_ITS ---
APPROVED REPORT Exam: Resting ECG HR:78 bpm ECG Measurements Heart Rate 78 AXES UT 166 P 48 QRSd 94 QRS -54 QT 399 T 58 QTc 432 Conclusion SINUS RHYTHM LOW QRS VOLTAGE IN PRECORDIAL LEADS [QRS DEFLECTION < 1.0 mV IN CHEST LEADS] LEFT ANTERIOR FASCICULAR BLOCK [QRS AXIS <= -45, QR IN I, RS IN II] Electronically signed by : BASSEM BOWMAN, 01/26/2024 10:50:26
--- NOTE | 2024-01-24 03:10 | CT_ITS ---
PROCEDURE INFORMATION: Exam: CT Abdomen And Pelvis With Contrast Exam date and time: 01/24/2024 4:00 AM Age: 58 years old Clinical indication: Vomiting and other: Brbpr; Abdominal pain; Generalized; Additional info: Abd pain, vomiting TECHNIQUE: Imaging protocol: Computed tomography of the abdomen and pelvis with contrast. Radiation optimization: All CT scans at this facility use at least one of these dose optimization techniques: automated exposure control; mA and/or kV adjustment per patient size (includes targeted exams where dose is matched to clinical indication); or iterative reconstruction. Contrast material: ISOVUE; Contrast volume: 60 ml; Contrast route: IV; COMPARISON: CT ANGIO ABDOMEN PELVIS 04/30/2020 4:08 PM FINDINGS: Liver: Normal. No mass. Gallbladder and bile ducts: Normal. No calcified stones. No ductal dilation. Pancreas: Normal. No ductal dilation. Spleen: Normal. No splenomegaly. Adrenal glands: Normal. No mass. Kidneys and ureters: Normal. No hydronephrosis. Stomach and bowel: The colon is diffusely thickened and edematous. No solid stool is present. The small bowel is decompressed. There is adjacent edema to the colon. Appendix: No evidence of appendicitis. Intraperitoneal space: Unremarkable. No free air. No significant fluid collection. Vasculature: Unremarkable. No abdominal aortic aneurysm. Lymph nodes: Unremarkable. No enlarged lymph nodes. Urinary bladder: Pagan catheter decompresses the bladder. Reproductive: Prostate is enlarged. Bones/joints: Unremarkable. No acute fracture. Soft tissues: Unremarkable. IMPRESSION: Findings of pancolitis, likely infectious. No perforation, abscess or obstruction identified.
[2024-01-24 03:24] LABS: Basophils # 0.1 K/mm3 (0-0.2); Basophils % 0.4 % (0.1-2.0); Eosinophils % 0.1 % (0.1-12.0); Hematocrit 50.9 % (42.0-52.0); Hemoglobin 15.7 g/dL (14.1-18.0); Lymphocytes # 1.3 K/mm3 (0.7-4.5); Lymphocytes % 6.8 % (10-50); Mean Corpuscular HGB Conc 30.9 g/dL (31.8-35.4); Mean Corpuscular Hemoglobin 29.9 pg (27.0-31.2); Mean Corpuscular Volume 96.6 fl (80-94); Monocytes # 0.9 K/mm3 (0.1-1.0); Monocytes % 4.6 % (1.7-9.3); Neutrophils # 16.7 K/mm3 (1.8-7.8); Platelet Count 334 K/mm3 (142-424); Red Blood Count 5.26 M/mm3 (4.60-6.20); Red Cell Distribution Width 14.3 % (11.5-17.5)
--- NOTE | 2024-01-24 03:24 | CT_ITS ---
PROCEDURE INFORMATION: Exam: CT Head Without Contrast Exam date and time: 01/24/2024 3:56 AM Age: 58 years old Clinical indication: Altered mental status/memory loss; Additional info: AMS TECHNIQUE: Imaging protocol: Computed tomography of the head without contrast. Radiation optimization: All CT scans at this facility use at least one of these dose optimization techniques: automated exposure control; mA and/or kV adjustment per patient size (includes targeted exams where dose is matched to clinical indication); or iterative reconstruction. COMPARISON: HEADWO CT head/brain wo con 02/12/2018 4:41 PM FINDINGS: Brain: Severely limited by motion artifact. No hemorrhage. No mass effect. Cerebral ventricles: No ventriculomegaly. Paranasal sinuses: Visualized sinuses are unremarkable. No fluid levels. Mastoid air cells: Visualized mastoid air cells are well aerated. Bones/joints: Unremarkable. No acute fracture. Soft tissues: Unremarkable. IMPRESSION: Examination severely limited by motion related artifact. No obvious hemorrhage or midline shift noted. More subtle abnormalities are not evaluable. Recommend repeat examination.
[2024-01-24 03:26] LABS: MANUAL DIFFERENTIAL MANUAL DIFFERENTIAL (MANUAL DIFF)
[2024-01-24 03:27] LABS: Alanine Aminotransferase 39 U/L (12-78); Albumin Level 3.9 g/dl (3.5-5.0); Albumin/Globulin Ratio 1.1 (1.1-1.8); Alkaline Phosphatase 241 U/L (38-126); Anion Gap 20.4 mEq/L (5-15); Aspartate Amino Transferase 88 U/L (17-59); Bilirubin,Total 1.7 mg/dl (0.2-1.3); Blood Urea Nitrogen 41 mg/dl (9-20); Calcium 8.5 mg/dl (8.4-10.2); Carbon Dioxide 25 mmol/L (22.0-30.0); Chloride 97 mmol/L (98-107); Creatinine Clearance Estimated 37 mL/min (50-200); Estimated Glomerular Filt Rate 21 ml/min (>60); GFR (African American) 25 ML/MIN (>60); Globulin 3.7 g/dL (1.3-3.2); Glucose 108 mg/dl (74-100); Lipase 57 U/L (23-300); Sodium 136 mmol/L (136-145); Total Protein,Serum 7.6 g/dl (6.3-8.2)
[2024-01-24] MEDS: LACTATED RINGERS 1000ML 2,400 ML 1200 ML IV (03:28)
[2024-01-24] MEDS: ONDANSETRON 4MG/2ML VIAL 4 MG IV (03:28)
[2024-01-24 03:29] LABS: Activated Partial Thrombo Time 31.4 seconds (22.8-30.6); INR 1.11 (0.9-1.1); Prothrombin Time 11.9 seconds (10.1-12.5)
[2024-01-24] MEDS: NALOXONE 2MG/2ML SYRINGE 1 MG IV (03:29)
[2024-01-24 03:30] LABS: Lactic Acid 2.8 mmol/L (0.7-2.1)
[2024-01-24 03:37] LABS: Potassium 6.4 mmoL/L (3.5-5.1)
[2024-01-24 03:48] LABS: Creatine Kinase 1212 U/L (55-170)
[2024-01-24 03:49] LABS: Lymphocytes % 14 % (10-50); Monocytes % 3 % (2-9); Neutrophils % 80 % (42-76); Platelet Estimate Normal; RBC Morphology Normal; Total Cells Counted 100; Troponin I < 0.01 ng/ml (0.00-0.034)
[2024-01-24 03:52] LABS: T4 (Thyroxine) 8.3 ug/dl (5.53-11.0)
[2024-01-24 03:53] LABS: Microscopic, Urine URINE MICROSCOPIC (MICROSCOPIC)
[2024-01-24 03:56] LABS: Appearance,Urine SL CLOUDY (Clear); Blood, Urine 3+ (Negative); Color,Urine BROWN (Yellow); Glucose,Urine (UA) Negative (Negative); Ketones,Urine TRACE (Negative); Leukocyte Esterase,Urine Negative (Negative); Nitrate,Urine POSITIVE (Negative); Protein,Urine 2+ (Negative); Specific Gravity, Urine 1.025 (1.005-1.030)
[2024-01-24 03:59] LABS: Bilirubin,Urine 1+ (Negative)
--- NOTE | 2024-01-24 04:02 | HMH.EDGENADL ---
Discharge Plan Disposition Patient Disposition: Xfer Other Condition: Critical Prescriptions Prescriptions: No Action ipratropium-albuterol 20-100 mcg/actuation mist 2 puff IH QID PRN (Reason: Shortness Of Breath Or Wheezing) 90 Days Qty: 4 0RF testosterone cypionate 200 mg/mL oil 50 mg IM Q3W Qty: 1 2RF ipratropium-albuterol 0.5 mg-3 mg(2.5 mg base)/3 mL solution for nebulization See Rx Instructions .ROUTE .COMPLEX Qty: 180 3RF Dose Instruction: INHALE CONTENTS OF 1 VIAL 4 TIMES EACH DAY USING A NEBULIZER NEEDED FOR SHORTNESS OF BREATH Rx Instructions: INHALE CONTENTS OF 1 VIAL 4 TIMES EACH DAY USING A NEBULIZER NEEDED FOR SHORTNESS OF BREATH cholecalciferol (vitamin D3) 1,250 mcg (50,000 unit) capsule See Rx Instructions .ROUTE .COMPLEX Qty: 14 2RF Dose Instruction: TAKE 1 CAPSULE 1 TIME EACH WEEK Rx Instructions: TAKE 1 CAPSULE 1 TIME EACH WEEK aspirin 81 mg tablet,delayed release (DR/EC) See Rx Instructions .ROUTE .COMPLEX Qty: 60 2RF Dose Instruction: TAKE 1 TABLET 1 TIME EACH DAY FOR HEART DISEASE Rx Instructions: TAKE 1 TABLET 1 TIME EACH DAY FOR HEART DISEASE docusate sodium 100 mg capsule See Rx Instructions .ROUTE .COMPLEX Qty: 60 3RF Dose Instruction: TAKE 1 CAPSULE 2 TIMES EACH DAY Rx Instructions: TAKE 1 CAPSULE 2 TIMES EACH DAY escitalopram oxalate 20 mg tablet See Rx Instructions .ROUTE .COMPLEX Qty: 90 2RF Dose Instruction: TAKE 1 TABLET 1 TIME EACH DAY Rx Instructions: TAKE 1 TABLET 1 TIME EACH DAY fluticasone propion-salmeterol [Advair HFA] 115-21 mcg/actuation HFA aerosol inhaler See Rx Instructions .ROUTE .COMPLEX Qty: 12 3RF Dose Instruction: INHALE 2 PUFFS 2 TIMES EACH DAY Rx Instructions: INHALE 2 PUFFS 2 TIMES EACH DAY lisinopril 10 mg tablet See Rx Instructions .ROUTE .COMPLEX Qty: 30 2RF Dose Instruction: TAKE 1 TABLET 1 TIME EACH DAY AT BEDTIME Rx Instructions: TAKE 1 TABLET 1 TIME EACH DAY AT BEDTIME pantoprazole 40 mg tablet,delayed release (DR/EC) See Rx Instructions .ROUTE .COMPLEX Qty: 90 3RF Dose Instruction: TAKE 1 TABLET 1 TIME EACH DAY FOR REFLUX Rx Instructions: TAKE 1 TABLET 1 TIME EACH DAY FOR REFLUX clonazepam [Klonopin] 0.5 mg tablet 0.5 mg PO BID Qty: 45 0RF Rx Instructions: 0.5mg AM 0.25MG PM gabapentin 600 mg tablet 600 mg PO TID 30 Days Qty: 90 0RF hydrocodone-acetaminophen 5-325 mg tablet 1 tab PO TID Qty: 90 0RF Auvelity 45-105 mg Tablet, Ir And Er, Biphasic 1 tab PO BID Referrals Follow up/Referrals: Zoran Jones DO [Primary Care Provider] - See instructions Clinical Impressions Clinical Impression: Acute renal failure due to rhabdomyolysis, Acute hyperkalemia, Hematochezia AMS (altered mental status) Qualifiers: Altered mental status type: coma Coma depth: Chriss coma 9-12 Coma timing: at arrival to emergency department Qualified Code(s): R40.2422 - Chriss coma scale score 9-12, at arrival to emergency department Stand Alone Forms Stand Alone Forms: Transfer Record - ED Instructions Patient Instructions: DI for Syncope in Adults (Fainting), DI for Syncope in Children (Fainting) Discharge ED Provider: Mandie Wolf General Adult HPI General Chief complaint: Syncope Stated complaint: syncope and rectal bleeding Time Seen by Provider: 01/24/24 03:10 Mode of Arrival: EMS Source of Information: EMS Limitations: No Limitations Description of Symptoms (Recalled from ER Triage Doc. by RN): EMS called out for syncope episode with rectal bleeding. pt reports has several days with constipation and took laxatives then had several bright red bowels movements History of Present Illness HPI narrative: 58-year-old male with previous medical history of chronic back pain on chronic opioids, anxiety on clonazepam, CHF, presents with altered mental status and hematochezia. Patient's is at the bedside and states that he has chronic constipation but over the past few days has had more difficulty having bowel movements and has had abdominal discomfort. The evening of 01/21 he took several laxatives and continued attempting to have bowel movement but is only passing very small amounts of stool. Over the course of the day today he has become increasingly fatigued and altered and this evening after having seen him only approximately an hour before, she found him down in the bathroom with large bowel movement in the floor and a large amount of bright red blood in the floor. She called EMS. He is oriented to place but not time or situation and is slow to answer questions. His denies any drug use aside from his prescribed medications which include benzodiazepine and opioid use. Patient has not had a severe GI bleed in the past but she does state he has chronic constipation so has occasionally had small amounts of red blood in his stool. No known history of cirrhosis. Related Data Home Medications Medication Instructions Recorded Confirmed dextromethorphan IR 45 1 tab PO BID 01/24/24 01/24/24 mg-bupropion ER 105 mg biphasic tablet (Auvelity) Previous Rx's Medication Instructions Recorded ipratropium 20 mcg-albuterol 100 2 puff inhalation QID PRN 06/13/22 mcg/actuation mist for inhalation Shortness Of Breath Or Wheezing 90 days #4 grams ipratropium 0.5 mg-albuterol 3 mg See Rx Instructions .Route 10/14/22 (2.5 mg base)/3 mL nebulization .COMPLEX #180 mL soln cholecalciferol (vitamin D3) 1,250 See Rx Instructions .Route 09/25/23 mcg (50,000 unit) capsule .COMPLEX #14 caps testosterone cypionate 200 mg/mL 50 mg (0.25 mL) IM Q3W #1 mL 09/25/23 intramuscular oil aspirin 81 mg tablet,delayed See Rx Instructions .Route 11/25/23 release .COMPLEX #60 tabs docusate sodium 100 mg capsule See Rx Instructions .Route 11/25/23 .COMPLEX #60 caps escitalopram oxalate 20 mg tablet See Rx Instructions .Route 11/25/23 .COMPLEX #90 tabs fluticasone propionate 115 See Rx Instructions .Route 11/25/23 mcg-salmeterol 21 mcg/actuation .COMPLEX #12 grams HFA inhaler (Advair HFA) lisinopril 10 mg tablet See Rx Instructions .Route 11/25/23 .COMPLEX #30 tabs pantoprazole 40 mg tablet,delayed See Rx Instructions .Route 11/25/23 release .COMPLEX #90 tabs clonazepam 0.5 mg tablet (Klonopin) 0.5 mg PO BID #45 tabs 01/19/24 gabapentin 600 mg tablet 600 mg PO TID Pain 30 days #90 tabs 01/19/24 hydrocodone 5 mg-acetaminophen 325 1 tab PO TID pain #90 tabs 01/19/24 mg tablet Allergies Allergy/AdvReac Type Severity Reaction Status Date / Time sulfamethoxazole Allergy Unknown Unknown Verified 12/17/23 14:36 [From BACTRIM] allergy reaction trimethoprim [From BACTRIM] Allergy Unknown Unknown Verified 12/17/23 14:36 allergy reaction PFSH PFS Disclaimer: The information contained in this section may have been updated after the patient was seen, as this information can be updated by other users. Medical History Bronchitis Chest pain Fatigue HTN (hypertension) Phalanx, distal fracture of finger Pneumonia due to COVID-19 virus Pre-diabetes Sinusitis, acute maxillary Syncope Family History Other Right arm pain Social History Smoking Status: Never smoker alcohol intake: never substance use type: denies use current occupational status: employed Travel in the last 8 weeks: None household members: spouse and children housing: apartment caffeine: Yes ROS Obtained: Yes All systems reviewed & no additional complaints except as documented Obtained from at bedside Physical Exam General General appearance: in no apparent distress Comment: GCS 12. Ill-appearing. Head Head exam: atraumatic, normocephalic and normal inspection Eye Eye exam: Present normal appearance, PERRL and EOMI ENT ENT exam: Present normal exam, mucous membranes dry and normal external ear exam Neck Neck exam: Present normal inspection, full ROM and trachea midline; Absent meningismus or lymphadenopathy Chest Chest inspection: Present normal inspection and symmetric chest wall rise; Absent tenderness Respiratory Respiratory exam: Present normal lung sounds bilaterally; Absent respiratory distress Cardiovascular Cardiovascular exam: Present regular rate and normal rhythm; Absent JVD Abdominal Exam Abdominal exam: Present soft and normal bowel sounds; Absent distention, tenderness or guarding Extremities Exam Extremities exam: Present normal inspection, full ROM and normal capillary refill; Absent calf tenderness Back Exam Back exam: Present normal inspection; Absent tenderness Neurological Exam Neurological exam: Present other (GCS 12. Oriented to place but not time or situation. States he has been feeling sick and constipated recently but cannot provide further detail.) Skin Skin exam: Present dry (Cool), intact and normal color Lymphatic Lymphatic Findings: no adenopathy Medical Decision Making Francois Inquiry Pt receiving controlled substance: No Vital Signs: 01/24/24 02:52 01/24/24 03:00 01/24/24 03:02 Temperature 98.0 F Temperature Source Oral Pulse Rate 76 74 Pulse Rate [Right] 76 Respiratory Rate 16 20 18 Blood Pressure 84/66 L 97/69 L Blood Pressure [Right Arm] 98/61 L Blood Pressure Mean 69 78 Blood Pressure Mean [Right Arm] 73 02 Sat by Pulse Oximetry 98 96 95 Oxygen Delivery Method Room Air Room Air 01/24/24 03:26 01/24/24 03:30 Temperature Temperature Source Pulse Rate 73 75 Pulse Rate [Right] Respiratory Rate 20 18 Blood Pressure 101/66 L 101/70 L Blood Pressure [Right Arm] Blood Pressure Mean 73 81 Blood Pressure Mean [Right Arm] 02 Sat by Pulse Oximetry 96 95 Oxygen Delivery Method Room Air Room Air Lab Data Lab Results 01/24/24 03:10: WBC 19.0 H, RBC 5.26, Hgb 15.7, Hct 50.9, MCV 96.6 H, MCH 29.9, MCHC 30.9 L, RDW 14.3, Plt Count 334, MPV 8.0, Neut % (Auto) 88.0 H, Lymph % (Auto) 6.8 L, [place] % (Auto) 4.6, Eos % (Auto) 0.1, Baso % (Auto) 0.4, Neut # (Auto) 16.7 H, Lymph # (Auto) 1.3, [place] # (Auto) 0.9, Eos # (Auto) 0.0, Baso # (Auto) 0.1, Total Counted 100, Neutrophils % (Manual) 80 H, Band Neutrophils % 3.0, Lymphocytes % (Manual) 14, Monocytes % (Manual) 3, Platelet Estimate Normal, RBC Morphology Normal, PT 11.9, INR 1.11 H, APTT 31.4 H, Sodium 136, Potassium 6.4 H*, Chloride 97 L, Carbon Dioxide 25, Anion Gap 20.4 H, BUN 41 H, Creatinine 3.10 H, Estimated Creat Clear 37, Estimated GFR 21 L, Est GFR ( Amer) 25 L, Glucose 108 H, Lactate 2.8 H, Calcium 8.5, Total Bilirubin 1.7 H, AST 88 H, ALT 39, Alkaline Phosphatase 241 H, Total Creatine Kinase 1212 H*, Troponin I < 0.01, Total Protein 7.6, Albumin 3.9, Globulin 3.7 H, Albumin/Globulin Ratio 1.1, Lipase 57, TSH 0.66, Thyroxine (T4) 8.3 01/24/24 03:47: VBG pH 7.25 L, VBG pCO2 60.3 H, VBG pO2 29.6, VBG HCO3 25.7, VBG Total CO2 27.5 H, VBG O2 Saturation 58.4, VBG Base Excess -1.6 01/24/24 03:49: Urine Color Brown, Urine Appearance Sl cloudy, Urine pH 5.0, Ur Specific [place] 1.025, Urine Protein 2+, Urine Glucose (UA) Negative, Urine Ketones Trace, Urine Blood 3+, Urine Nitrate Positive, Urine Bilirubin 1+ A, Urine Urobilinogen 1.0, Ur Leukocyte Esterase Negative, Urine RBC Occasional, Urine WBC 3-5, Ur Squamous Epith Cells 3-5, Amorphous Sediment Trace, Urine Bacteria 1+, Fine Granular Casts Occasional, Urine Opiates Screen Positive H, Urine Methadone Screen Negative, Ur Barbituates Screen Negative, Ur Phencyclidine Scrn Negative, U Benzodiazepines Scrn Negative, Urine Cocaine Screen Negative, U Marijuana (THC) Screen Negative 01/24/24 03:10 01/24/24 03:10 Orders (Tests/Meds): ED MEDICATIONS Generic Name Dose Route Start Last Admin Trade Name Joséq PRN Reason Stop Dose Admin Lactated Ringer's 2,400 mls @ 1,200 mls/hr 01/24/24 03:10 01/24/24 03:28 Lactated Ringer's 1000 Ml Bag 30 ml/kg infuse over 2 hr (2400 ml) 01/24/24 05:09 1,200 mls/hr IV Administration .Q2H ONE Propofol 100 mls @ 2.966 mls/hr 01/24/24 04:40 01/24/24 04:45 Diprivan 10mg/Ml 100ml Bottle IV 02/23/24 04:39 5 mcg/kg/min .Q24H DELON 2.97 mls/hr Administration Protocol 5 MCG/KG/MIN Piperacillin Sod/Tazobactam 50 mls @ 100 mls/hr 01/24/24 04:47 01/24/24 04:56 Sod 3.375 gm/ Sodium Chloride IV 01/24/24 05:16 100 mls/hr ONCE ONE Administration Discontinued Medications Generic Name Dose Route Start Last Admin Trade Name Freq PRN Reason Stop Dose Admin Albuterol Sulfate 7.5 mg 01/24/24 03:47 Albuterol 0.083% 2.5 Mg/3 Ml Neb IH 01/24/24 03:48 ONCE ONE Calcium Gluconate/Sodium Chloride 1 gm in 50 mls @ 50 mls/hr 01/24/24 03:48 01/24/24 04:21 Calcium Gluconate 1,000mg/50ml Nacl Premix IV 01/24/24 04:47 50 mls/hr ONCE ONE Administration Iopamidol 10 ml 01/24/24 04:05 01/24/24 04:07 Iopamidol-200 (41%);10ml Vial IV 01/24/24 04:06 Not Given ONCE ONE Iopamidol 60 ml 01/24/24 04:07 01/24/24 04:08 Iopamidol-370 (76%);100ml Bottle IV 01/24/24 04:08 60 ml ONCE ONE Administration Naloxone HCl 1 mg 01/24/24 03:28 01/24/24 03:29 Naloxone 2mg/2ml Syringe IV 01/24/24 03:29 1 mg ONCE ONE Administration Ondansetron HCl 4 mg 01/24/24 03:10 01/24/24 03:28 Ondansetron 4mg/2ml Vial IV 01/24/24 03:11 4 mg ONCE ONE Administration Sodium Chloride 10 ml 01/24/24 04:05 01/24/24 04:07 Sodium Chloride 0.9% 10ml Syr (Rad Only) IV 01/24/24 04:06 10 ml ONCE ONE Administration ORDERS Category Date Time Status CT abdomen pelvis w con Stat Cat Scan 01/24/24 03:[address] head/brain wo con Stat Cat Scan 01/24/24 03:24 Taken Chest XR -- portable [XR chest portable] Stat Exams 01/24/24 04:33 Taken Chest XR -- portable [XR chest portable] Stat Exams 01/24/24 05:00 Ordered Activated Partial Thrombo Time Stat Lab 01/24/24 03:10 Completed CK [Creatine Kinase] Stat Lab 01/24/24 03:10 Completed Complete Blood Count Auto Diff Stat Lab 01/24/24 03:10 Completed Comprehensive Metabolic Panel Stat Lab 01/24/24 03:10 Completed Lactate Venous Routine Lab 01/24/24 04:06 Received Lactic Acid Stat Lab 01/24/24 03:10 Completed Lipase Stat Lab 01/24/24 03:10 Completed Prothrombin Time INR Stat Lab 01/24/24 03:10 Completed T4 (Thyroxine) Stat Lab 01/24/24 03:10 Completed TSH [Thyroid Stimulating Hormone] Stat Lab 01/24/24 03:10 Completed Trop I [Troponin I] Stat Lab 01/24/24 03:10 Completed Troponin I Q3H Lab 01/24/24 06:30 Ordered Troponin I Q3H Lab 01/24/24 09:30 Ordered UDS [Drug Screen,Urine] Stat Lab 01/24/24 03:49 Results Urinalysis and Microscopic Stat Lab 01/24/24 03:49 Completed Blood Culture Stat Micro 01/24/24 03:50 Received VBG [Venous Blood Gas] Stat RT 01/24/24 03:47 Completed ECG Data Tracing #1: I reviewed this ECG and interpreted as documented below: ECG initial impression date: 01/24/24 ECG initial impression time: 03:05 ECG normal with no acute: arrhythmias, ischemia, conduction abnormalities, chamber hypertrophy Ischemic changes: t wave inversions (anterior leads) Medical Decision Narrative: Presentation concerning for altered mental status with hematochezia and regular bowel movements which may be due to sepsis, bowel obstruction, diverticulitis, bleeding ulcer, or upper or lower GI bleeds, possibly esophageal varices though no history of cirrhosis, and altered mental status may be due to multiple causes including endocrinologic and metabolic causes, electrolyte derangements, renal failure, hepatic failure, among others. For this reason obtain broad laboratory evaluation, CT head without, CT abdomen pelvis with IV contrast, and administered fluids. Labs independently reviewed and interpreted were significant for acute renal failure with a creatinine of 3.1 increased from his baseline of 0.71-month ago. Potassium is 6.4. Glucose was 110 so administered albuterol and calcium gluconate but not insulin at this time given it is renally cleared and this would be concerning for possibility of persistent induced hypoglycemia. EKG I independently reviewed and interpreted shows no peaked T waves or other signs of hyperkalemia. Normal rate, regular rhythm, no significant ST segment elevations. Normal sinus rhythm. He does have T wave inversions in the anterior leads but no STEMI. CT head independently reviewed and interpreted showed no large intracranial hemorrhage to explain his altered mental status. CT abdomen pelvis I independently reviewed and interpreted and noted fluid-filled colon and small bowel and some nonspecific stranding but no specific cause to explain his renal failure, rhabdomyolysis, and altered mental status. Consulted [facility] transfer center and requested transfer for altered mental status with rhabdomyolysis and acute kidney failure with hyperkalemia that would require higher level of care including an ICU with hemodialysis capabilities and patient was accepted for transfer. Given patient's GCS of 12 and high risk to vomit without protecting airway, discussed with family and then proceeded with intubation. Kirk and etomidate given at 4.40 am.Intubation successful but tube was a bit high so advanced 2 cm to 26 at lip. Zosyn given empirically at 4:50 am for possible abdominal source of sepsis given history and physical and no radiologist read available at this time to assess for occult abdominal infection on CT given his abnormal bowel movements. Transferred on propofol, zosyn, LR, normotensive. Procedures Intubation Mallampati Score:: Class II Time out performed: Yes sedative: Etomidate Mg Given: 30 paralytic: Rocuronium Mg Given: 100 Laryngoscope: Nigel ET Tube Size: 7.5 ET Tube Uncuffed: No Tube Secured Depth (cm): 24 Tube Secured Location: lips Tube Placement Confirmation: visualized tube passing through cords, equal breath sounds bilaterally and confirmation by capnometry Patient Tolerated Procedure: well Intubation Complications: none Critical Care Critical Care Time Critical Care Time: Yes Attestation: On 01/24/24, the high probability of a clinically significant, sudden or life threatening deterioration of the following system(s) required my full and direct attention, intervention and personal management. The time I documented below is in addition to time spent performing reported procedures but includes the following listed in this critical care notation. Total Time Total Critical Care Time: 60
[2024-01-24 04:06] LABS: Thyroid Stimulating Hormone 0.66 uIU/mL (0.465-4.68)
[2024-01-24] MEDS: SODIUM CHLORIDE 0.9% 10ML SYR (RAD ONLY) 10 ML IV (04:07)
[2024-01-24 04:08] LABS: Barbiturates Screen,Urine Negative ng/ml (<200)
[2024-01-24 04:08] LABS: VBG Base Excess -1.6 mmol/L (-2.4-2.3); VBG HCO3 25.7 mmol/L (23-30); VBG Oxygen Saturation 58.4 % (50-70); VBG PCO2 60.3 mmol/L (35-51); VBG PH 7.25 mmol/L (7.31-7.41); VBG PO2 29.6 mmol/L (28-40); VBG Total CO2 27.5 mmol/L (23-27)
[2024-01-24] MEDS: IOPAMIDOL-370 (76%);100ML BOTTLE 60 ML IV (04:08)
[2024-01-24 04:09] LABS: Cannabinoid Screen,Urine Negative ng/ml (<50)
[2024-01-24 04:10] LABS: Cocaine Screen,Urine Negative ng/ml (<300)
[2024-01-24 04:11] LABS: Opiate Screen,Urine Positive ng/ml (<300); Phencyclidine Screen,Urine Negative ng/ml (<25)
[2024-01-24 04:14] LABS: Amorphous Sediment,Urine Trace /lpf; Bacteria,Urine 1+ /lpf; Fine Granular Casts,Urine Occasional #/lpf (0); RBC,Urine Occasional #/hpf (0-3)
--- NOTE | 2024-01-24 04:20 | PC.NURSE ---
Called for transfer per Dr Wolf. Speaking with Dr Lola Lucas. CR
[2024-01-24] MEDS: CALCIUM GLUC IN NACL, ISO-OSM 1 GM/50 ML BAG IV (04:21)
--- NOTE | 2024-01-24 04:33 | XR_ITS ---
PROCEDURE INFORMATION: Exam: XR Chest Exam date and time: 01/24/2024 4:39 AM Age: 58 years old Clinical indication: Device placement; Ng tube; Additional info: Et and ng tube placment TECHNIQUE: Imaging protocol: Radiologic exam of the chest. Views: 1 view. COMPARISON: CT ANGIO CHEST 03/18/2021 12:59 AM FINDINGS: Tubes, catheters and devices: The nasogastric tube is in the stomach. The ET tube is in good position. Lungs: Unremarkable. No consolidation. Pleural spaces: Unremarkable. No pleural effusion. No pneumothorax. Heart/Mediastinum: Unremarkable. No cardiomegaly. Bones/joints: Unremarkable. IMPRESSION: The nasogastric tube is in the stomach. The ET tube is in good position.
[2024-01-24 04:34] LABS: Benzodiazepines Screen,Urine Negative ng/ml (<200); Methadone Screen,Urine Negative ng/ml (<300)
[2024-01-24] MEDS: propofoL 100 ML 2.9700000000000002 MG IV (04:45)
[2024-01-24] MEDS: PIPERACILLIN/TAZO 3.375 GM in 0.9 % SODIUM CHLORIDE 50 ML IV (04:56)
--- NOTE | 2024-01-24 05:00 | XR_ITS ---
PROCEDURE INFORMATION: Exam: XR Chest Exam date and time: 01/24/2024 4:52 AM Age: 58 years old Clinical indication: Device placement; Ng tube; Additional info: Et TECHNIQUE: Imaging protocol: Radiologic exam of the chest. Views: 1 view. COMPARISON: CR XR CHEST PORTABLE 01/24/2024 4:39 AM FINDINGS: Tubes, catheters and devices: The ET tube and nasogastric tube are in good position. Lungs: Some patchy left lower lobe airspace disease is unchanged. No consolidation. Pleural spaces: Unremarkable. No pleural effusion. No pneumothorax. Heart/Mediastinum: Unremarkable. No cardiomegaly. Bones/joints: Unremarkable. IMPRESSION: Patchy left lower lobe airspace disease unchanged. Lines and tubes in good position.
--- NOTE | 2024-01-24 05:01 | PC.NURSE ---
Called [facility] about transfer of pt. States they will be up in a few minutes. CR
[2024-01-24 05:07] LABS: Amphetamine/Metha Screen,Urine Positive ng/ml (<1000)
[2024-01-24] MEDS: ETOMIDATE 40MG/20ML VIAL 30 MG IV (05:08)
[2024-01-24] MEDS: ROCURONIUM BROMIDE 50MG/5ML VIAL 100 MG IV (05:09)
--- NOTE | 2024-01-24 05:43 | HMH.EDGENADL ---
Discharge Plan Disposition Patient Disposition: Xfer Other Condition: Critical Prescriptions Prescriptions: No Action ipratropium-albuterol 20-100 mcg/actuation mist 2 puff IH QID PRN (Reason: Shortness Of Breath Or Wheezing) 90 Days Qty: 4 0RF testosterone cypionate 200 mg/mL oil 50 mg IM Q3W Qty: 1 2RF ipratropium-albuterol 0.5 mg-3 mg(2.5 mg base)/3 mL solution for nebulization See Rx Instructions .ROUTE .COMPLEX Qty: 180 3RF Dose Instruction: INHALE CONTENTS OF 1 VIAL 4 TIMES EACH DAY USING A NEBULIZER NEEDED FOR SHORTNESS OF BREATH Rx Instructions: INHALE CONTENTS OF 1 VIAL 4 TIMES EACH DAY USING A NEBULIZER NEEDED FOR SHORTNESS OF BREATH cholecalciferol (vitamin D3) 1,250 mcg (50,000 unit) capsule See Rx Instructions .ROUTE .COMPLEX Qty: 14 2RF Dose Instruction: TAKE 1 CAPSULE 1 TIME EACH WEEK Rx Instructions: TAKE 1 CAPSULE 1 TIME EACH WEEK aspirin 81 mg tablet,delayed release (DR/EC) See Rx Instructions .ROUTE .COMPLEX Qty: 60 2RF Dose Instruction: TAKE 1 TABLET 1 TIME EACH DAY FOR HEART DISEASE Rx Instructions: TAKE 1 TABLET 1 TIME EACH DAY FOR HEART DISEASE docusate sodium 100 mg capsule See Rx Instructions .ROUTE .COMPLEX Qty: 60 3RF Dose Instruction: TAKE 1 CAPSULE 2 TIMES EACH DAY Rx Instructions: TAKE 1 CAPSULE 2 TIMES EACH DAY escitalopram oxalate 20 mg tablet See Rx Instructions .ROUTE .COMPLEX Qty: 90 2RF Dose Instruction: TAKE 1 TABLET 1 TIME EACH DAY Rx Instructions: TAKE 1 TABLET 1 TIME EACH DAY fluticasone propion-salmeterol [Advair HFA] 115-21 mcg/actuation HFA aerosol inhaler See Rx Instructions .ROUTE .COMPLEX Qty: 12 3RF Dose Instruction: INHALE 2 PUFFS 2 TIMES EACH DAY Rx Instructions: INHALE 2 PUFFS 2 TIMES EACH DAY lisinopril 10 mg tablet See Rx Instructions .ROUTE .COMPLEX Qty: 30 2RF Dose Instruction: TAKE 1 TABLET 1 TIME EACH DAY AT BEDTIME Rx Instructions: TAKE 1 TABLET 1 TIME EACH DAY AT BEDTIME pantoprazole 40 mg tablet,delayed release (DR/EC) See Rx Instructions .ROUTE .COMPLEX Qty: 90 3RF Dose Instruction: TAKE 1 TABLET 1 TIME EACH DAY FOR REFLUX Rx Instructions: TAKE 1 TABLET 1 TIME EACH DAY FOR REFLUX clonazepam [Klonopin] 0.5 mg tablet 0.5 mg PO BID Qty: 45 0RF Rx Instructions: 0.5mg AM 0.25MG PM gabapentin 600 mg tablet 600 mg PO TID 30 Days Qty: 90 0RF hydrocodone-acetaminophen 5-325 mg tablet 1 tab PO TID Qty: 90 0RF Auvelity 45-105 mg Tablet, Ir And Er, Biphasic 1 tab PO BID Referrals Follow up/Referrals: Zoran Jones DO [Primary Care Provider] - See instructions Clinical Impressions Clinical Impression: Acute renal failure due to rhabdomyolysis, Acute hyperkalemia, Hematochezia AMS (altered mental status) Qualifiers: Altered mental status type: coma Coma depth: Chriss coma 9-12 Coma timing: at arrival to emergency department Qualified Code(s): R40.2422 - Chriss coma scale score 9-12, at arrival to emergency department Stand Alone Forms Stand Alone Forms: Transfer Record - ED Instructions Patient Instructions: DI for Syncope in Adults (Fainting), DI for Syncope in Children (Fainting) Discharge ED Provider: Mandie Wolf General Adult HPI General Chief complaint: Syncope Stated complaint: syncope and rectal bleeding Time Seen by Provider: 01/24/24 03:10 Mode of Arrival: EMS Source of Information: EMS Limitations: No Limitations Description of Symptoms (Recalled from ER Triage Doc. by RN): EMS called out for syncope episode with rectal bleeding. pt reports has several days with constipation and took laxatives then had several bright red bowels movements Related Data Home Medications Medication Instructions Recorded Confirmed dextromethorphan IR 45 1 tab PO BID 01/24/24 01/24/24 mg-bupropion ER 105 mg biphasic tablet (Auvelity) Previous Rx's Medication Instructions Recorded ipratropium 20 mcg-albuterol 100 2 puff inhalation QID PRN 06/13/22 mcg/actuation mist for inhalation Shortness Of Breath Or Wheezing 90 days #4 grams ipratropium 0.5 mg-albuterol 3 mg See Rx Instructions .Route 10/14/22 (2.5 mg base)/3 mL nebulization .COMPLEX #180 mL soln cholecalciferol (vitamin D3) 1,250 See Rx Instructions .Route 09/25/23 mcg (50,000 unit) capsule .COMPLEX #14 caps testosterone cypionate 200 mg/mL 50 mg (0.25 mL) IM Q3W #1 mL 09/25/23 intramuscular oil aspirin 81 mg tablet,delayed See Rx Instructions .Route 11/25/23 release .COMPLEX #60 tabs docusate sodium 100 mg capsule See Rx Instructions .Route 11/25/23 .COMPLEX #60 caps escitalopram oxalate 20 mg tablet See Rx Instructions .Route 11/25/23 .COMPLEX #90 tabs fluticasone propionate 115 See Rx Instructions .Route 11/25/23 mcg-salmeterol 21 mcg/actuation .COMPLEX #12 grams HFA inhaler (Advair HFA) lisinopril 10 mg tablet See Rx Instructions .Route 11/25/23 .COMPLEX #30 tabs pantoprazole 40 mg tablet,delayed See Rx Instructions .Route 11/25/23 release .COMPLEX #90 tabs clonazepam 0.5 mg tablet (Klonopin) 0.5 mg PO BID #45 tabs 01/19/24 gabapentin 600 mg tablet 600 mg PO TID Pain 30 days #90 tabs 01/19/24 hydrocodone 5 mg-acetaminophen 325 1 tab PO TID pain #90 tabs 01/19/24 mg tablet Allergies Allergy/AdvReac Type Severity Reaction Status Date / Time sulfamethoxazole Allergy Unknown Unknown Verified 12/17/23 14:36 [From BACTRIM] allergy reaction trimethoprim [From BACTRIM] Allergy Unknown Unknown Verified 12/17/23 14:36 allergy reaction PFSH [facility] Disclaimer: The information contained in this section may have been updated after the patient was seen, as this information can be updated by other users. Medical History Bronchitis Chest pain Fatigue HTN (hypertension) Phalanx, distal fracture of finger Pneumonia due to COVID-19 virus Pre-diabetes Sinusitis, acute maxillary Syncope Family History Other Right arm pain Social History Smoking Status: Never smoker alcohol intake: never substance use type: denies use current occupational status: employed Travel in the last 8 weeks: None household members: spouse and children housing: apartment caffeine: Yes Physical Exam General General appearance: in no apparent distress Medical Decision Making Francois Inquiry Pt receiving controlled substance: No Vital Signs: 01/24/24 02:52 01/24/24 03:00 01/24/24 03:02 Temperature 98.0 F Temperature Source Oral Pulse Rate 76 74 Pulse Rate [Right] 76 Respiratory Rate 16 20 18 Blood Pressure 84/66 L 97/69 L Blood Pressure [Right Arm] 98/61 L Blood Pressure Mean 69 78 Blood Pressure Mean [Right Arm] 73 02 Sat by Pulse Oximetry 98 96 95 Oxygen Delivery Method Room Air Room Air 01/24/24 03:26 01/24/24 03:30 01/24/24 04:17 Temperature Temperature Source Pulse Rate 73 75 77 Pulse Rate [Right] Respiratory Rate 20 18 19 Blood Pressure 101/66 L 101/70 L 114/63 Blood Pressure [Right Arm] Blood Pressure Mean 73 81 80 Blood Pressure Mean [Right Arm] 02 Sat by Pulse Oximetry 96 95 94 L Oxygen Delivery Method Room Air Room Air 01/24/24 04:30 01/24/24 04:44 01/24/24 04:47 Temperature Temperature Source Pulse Rate 78 96 H 97 H Pulse Rate [Right] Respiratory Rate 18 16 14 Blood Pressure 109/68 L 120/70 117/69 Blood Pressure [Right Arm] Blood Pressure Mean 87 99 85 Blood Pressure Mean [Right Arm] 02 Sat by Pulse Oximetry 94 L 100 100 Oxygen Delivery Method Mechanical Ventilation Mechanical Ventilation 01/24/24 04:48 01/24/24 04:50 01/24/24 04:54 Temperature Temperature Source Pulse Rate 97 H 99 H 98 H Pulse Rate [Right] Respiratory Rate 14 14 14 Blood Pressure 119/71 124/78 133/81 Blood Pressure [Right Arm] Blood Pressure Mean 92 93 98 Blood Pressure Mean [Right Arm] 02 Sat by Pulse Oximetry 100 100 100 Oxygen Delivery Method Mechanical Ventilation Mechanical Ventilation Mechanical Ventilation 01/24/24 04:56 01/24/24 04:58 01/24/24 05:00 Temperature Temperature Source Pulse Rate 98 H 97 H 92 H Pulse Rate [Right] Respiratory Rate 14 14 14 Blood Pressure 128/80 131/77 122/70 Blood Pressure [Right Arm] Blood Pressure Mean 105 110 102 Blood Pressure Mean [Right Arm] 02 Sat by Pulse Oximetry 100 100 100 Oxygen Delivery Method Mechanical Ventilation Mechanical Ventilation Mechanical Ventilation 01/24/24 05:02 01/24/24 05:04 01/24/24 05:06 Temperature Temperature Source Pulse Rate 92 H 96 H 95 H Pulse Rate [Right] Respiratory Rate 14 14 14 Blood Pressure 118/63 114/64 110/63 Blood Pressure [Right Arm] Blood Pressure Mean 94 91 86 Blood Pressure Mean [Right Arm] 02 Sat by Pulse Oximetry 100 100 100 Oxygen Delivery Method Mechanical Ventilation Mechanical Ventilation Mechanical Ventilation 01/24/24 05:08 01/24/24 05:10 01/24/24 05:12 Temperature Temperature Source Pulse Rate 96 H 96 H 96 H Pulse Rate [Right] Respiratory Rate 18 18 18 Blood Pressure 115/59 L 108/64 L 107/61 L Blood Pressure [Right Arm] Blood Pressure Mean 86 83 80 Blood Pressure Mean [Right Arm] 02 Sat by Pulse Oximetry 100 100 100 Oxygen Delivery Method Mechanical Ventilation Mechanical Ventilation Mechanical Ventilation 01/24/24 05:14 01/24/24 05:16 01/24/24 05:18 Temperature Temperature Source Pulse Rate 96 H 96 H 96 H Pulse Rate [Right] Respiratory Rate 18 18 Blood Pressure 106/58 L 105/59 L 105/62 L Blood Pressure [Right Arm] Blood Pressure Mean 79 80 81 Blood Pressure Mean [Right Arm] 02 Sat by Pulse Oximetry 100 100 100 Oxygen Delivery Method Mechanical Ventilation Mechanical Ventilation Mechanical Ventilation 01/24/24 05:20 01/24/24 05:22 01/24/24 05:24 Temperature Temperature Source Pulse Rate 97 H 96 H 97 H Pulse Rate [Right] Respiratory Rate 18 18 18 Blood Pressure 104/57 L 103/57 L 102/61 L Blood Pressure [Right Arm] Blood Pressure Mean 79 81 78 Blood Pressure Mean [Right Arm] 02 Sat by Pulse Oximetry 100 100 100 Oxygen Delivery Method Mechanical Ventilation Mechanical Ventilation Mechanical Ventilation 01/24/24 05:26 01/24/24 05:28 Temperature Temperature Source Pulse Rate 97 H 96 H Pulse Rate [Right] Respiratory Rate 18 18 Blood Pressure 100/55 L 99/57 L Blood Pressure [Right Arm] Blood Pressure Mean 75 75 Blood Pressure Mean [Right Arm] 02 Sat by Pulse Oximetry 100 100 Oxygen Delivery Method Mechanical Ventilation Mechanical Ventilation Lab Data Lab Results 01/24/24 03:10: WBC 19.0 H, RBC 5.26, Hgb 15.7, Hct 50.9, MCV 96.6 H, MCH 29.9, MCHC 30.9 L, RDW 14.3, Plt Count 334, MPV 8.0, Neut % (Auto) 88.0 H, Lymph % (Auto) 6.8 L, [place] % (Auto) 4.6, Eos % (Auto) 0.1, Baso % (Auto) 0.4, Neut # (Auto) 16.7 H, Lymph # (Auto) 1.3, [place] # (Auto) 0.9, Eos # (Auto) 0.0, Baso # (Auto) 0.1, Total Counted 100, Neutrophils % (Manual) 80 H, Band Neutrophils % 3.0, Lymphocytes % (Manual) 14, Monocytes % (Manual) 3, Platelet Estimate Normal, RBC Morphology Normal, PT 11.9, INR 1.11 H, APTT 31.4 H, Sodium 136, Potassium 6.4 H*, Chloride 97 L, Carbon Dioxide 25, Anion Gap 20.4 H, BUN 41 H, Creatinine 3.10 H, Estimated Creat Clear 37, Estimated GFR 21 L, Est GFR ( Amer) 25 L, Glucose 108 H, Lactate 2.8 H, Calcium 8.5, Total Bilirubin 1.7 H, AST 88 H, ALT 39, Alkaline Phosphatase 241 H, Total Creatine Kinase 1212 H*, Troponin I < 0.01, Total Protein 7.6, Albumin 3.9, Globulin 3.7 H, Albumin/Globulin Ratio 1.1, Lipase 57, TSH 0.66, Thyroxine (T4) 8.3 01/24/24 03:47: VBG pH 7.25 L, VBG pCO2 60.3 H, VBG pO2 29.6, VBG HCO3 25.7, VBG Total CO2 27.5 H, VBG O2 Saturation 58.4, VBG Base Excess -1.6 01/24/24 03:49: Urine Color Brown, Urine Appearance Sl cloudy, Urine pH 5.0, Ur Specific [place] 1.025, Urine Protein 2+, Urine Glucose (UA) Negative, Urine Ketones Trace, Urine Blood 3+, Urine Nitrate Positive, Urine Bilirubin 1+ A, Urine Urobilinogen 1.0, Ur Leukocyte Esterase Negative, Urine RBC Occasional, Urine WBC 3-5, Ur Squamous Epith Cells 3-5, Amorphous Sediment Trace, Urine Bacteria 1+, Fine Granular Casts Occasional, Urine Opiates Screen Positive H, Urine Methadone Screen Negative, Ur Barbituates Screen Negative, Ur Phencyclidine Scrn Negative, Ur Amphetamines Screen Positive H, U Benzodiazepines Scrn Negative, Urine Cocaine Screen Negative, U Marijuana (THC) Screen Negative 01/24/24 03:10 01/24/24 03:10 Orders (Tests/Meds): ED MEDICATIONS Generic Name Dose Route Start Last Admin Trade Name Freq PRN Reason Stop Dose Admin Propofol 100 mls @ 2.966 mls/hr 01/24/24 04:40 01/24/24 04:45 Diprivan 10mg/Ml 100ml Bottle IV 02/23/24 04:39 5 mcg/kg/min .Q24H DELON 2.97 mls/hr Administration Protocol 5 MCG/KG/MIN Discontinued Medications Generic Name Dose Route Start Last Admin Trade Name Freq PRN Reason Stop Dose Admin Albuterol Sulfate 7.5 mg 01/24/24 03:47 Albuterol 0.083% 2.5 Mg/3 Ml Neb IH 01/24/24 03:48 ONCE ONE Etomidate 30 mg 01/24/24 05:03 01/24/24 05:08 Etomidate 40mg/20ml Vial IV 01/24/24 05:04 30 mg ONCE ONE Administration Lactated Ringer's 2,400 mls @ 1,200 mls/hr 01/24/24 03:10 01/24/24 03:28 Lactated Ringer's 1000 Ml Bag 30 ml/kg infuse over 2 hr (2400 ml) 01/24/24 05:09 1,200 mls/hr IV Administration .Q2H ONE Calcium Gluconate/Sodium Chloride 1 gm in 50 mls @ 50 mls/hr 01/24/24 03:48 01/24/24 04:21 Calcium Gluconate 1,000mg/50ml Nacl Premix IV 01/24/24 04:47 50 mls/hr ONCE ONE Administration Piperacillin Sod/Tazobactam 50 mls @ 100 mls/hr 01/24/24 04:47 01/24/24 04:56 Sod 3.375 gm/ Sodium Chloride IV 01/24/24 05:16 100 mls/hr ONCE ONE Administration Iopamidol 10 ml 01/24/24 04:05 01/24/24 04:07 Iopamidol-200 (41%);10ml Vial IV 01/24/24 04:06 Not Given ONCE ONE Iopamidol 60 ml 01/24/24 04:07 01/24/24 04:08 Iopamidol-370 (76%);100ml Bottle IV 01/24/24 04:08 60 ml ONCE ONE Administration Naloxone HCl 1 mg 01/24/24 03:28 01/24/24 03:29 Naloxone 2mg/2ml Syringe IV 01/24/24 03:29 1 mg ONCE ONE Administration Ondansetron HCl 4 mg 01/24/24 03:10 01/24/24 03:28 Ondansetron 4mg/2ml Vial IV 01/24/24 03:11 4 mg ONCE ONE Administration Rocuronium [place] 100 mg 01/24/24 05:02 01/24/24 05:09 Rocuronium [place] 50mg/5ml Vial IV 01/24/24 05:03 100 mg ONCE ONE Administration Sodium Chloride 10 ml 01/24/24 04:05 01/24/24 04:07 Sodium Chloride 0.9% 10ml Syr (Rad Only) IV 01/24/24 04:06 10 ml ONCE ONE Administration ORDERS Category Date Time Status CT abdomen pelvis w con Stat Cat Scan 01/24/24 03:[address] head/brain wo con Stat Cat Scan 01/24/24 03:24 Completed Chest XR -- portable [XR chest portable] Stat Exams 01/24/24 04:33 Completed Chest XR -- portable [XR chest portable] Stat Exams 01/24/24 05:00 Completed Activated Partial Thrombo Time Stat Lab 01/24/24 03:10 Completed CK [Creatine Kinase] Stat Lab 01/24/24 03:10 Completed Complete Blood Count Auto Diff Stat Lab 01/24/24 03:10 Completed Comprehensive Metabolic Panel Stat Lab 01/24/24 03:10 Completed Lactate Venous Routine Lab 01/24/24 04:06 Received Lactic Acid Stat Lab 01/24/24 03:10 Completed Lipase Stat Lab 01/24/24 03:10 Completed Prothrombin Time INR Stat Lab 01/24/24 03:10 Completed T4 (Thyroxine) Stat Lab 01/24/24 03:10 Completed TSH [Thyroid Stimulating Hormone] Stat Lab 01/24/24 03:10 Completed Trop I [Troponin I] Stat Lab 01/24/24 03:10 Completed Troponin I Q3H Lab 01/24/24 06:30 Ordered Troponin I Q3H Lab 01/24/24 09:30 Ordered UDS [Drug Screen,Urine] Stat Lab 01/24/24 03:49 Completed Urinalysis and Microscopic Stat Lab 01/24/24 03:49 Completed Blood Culture Stat Micro 01/24/24 03:50 Received VBG [Venous Blood Gas] Stat RT 01/24/24 03:47 Completed
--- NOTE | 2024-01-24 07:27 | PC.NURSE ---
called and I faxed over his radiology reports, from transfer.
--- NOTE | 2024-02-01 09:40 | PC.NURSE ---
spoke with to transfer blood culture results, pt is no longer a pt there. reviewed blood culture results, states that the cultures are contaminated with no further intervention at this time.
== END 2024-01-24 05:52 | disposition other institution (70) ==
PROVIDERS: Emergency Provider Emergency Medicine; PCP Internal Medicine
DX: A41.89 Other specified sepsis (principal); R40.2422 Glasgow coma scale score 9-12, at arrival to emergency department; N17.9 Acute kidney failure, unspecified; M62.82 Rhabdomyolysis; E87.5 Hyperkalemia; K92.1 Melena; I11.0 Hypertensive heart disease with heart failure; I50.9 Heart failure, unspecified; K21.9 Gastro-esophageal reflux disease without esophagitis; F41.1 Generalized anxiety disorder; B95.7 Other staphylococcus as the cause of diseases classified elsewhere
CPT/HCPCS: 31500; 51702; 70450; 71045; 74177; 80053; 80307; 81001; 82550; 82803; 83605; 83690; 84436; 84443; 84484; 85007; 85025; 85610; 85730; 87040; 93005; 96365; 96366; 96367; 96375; 99291; J2310; J2405; J2543; J2704; Q9967

== ENCOUNTER 2024-02-16 19:01 | Outpatient (CLI) | payer OTHER, SELFPAY ==
[2024-02-16 19:25] LABS: Basophils # 0.1 K/mm3 (0-0.2); Basophils % 1.4 % (0.1-2.0); Eosinophils # 0.2 K/mm3 (0.0-0.4); Eosinophils % 2.1 % (0.1-12.0); Hematocrit 35.9 % (42.0-52.0); Hemoglobin 11.7 g/dL (14.1-18.0); Lymphocytes # 1.5 K/mm3 (0.7-4.5); Mean Corpuscular HGB Conc 32.5 g/dL (31.8-35.4); Mean Corpuscular Hemoglobin 30.1 pg (27.0-31.2); Mean Corpuscular Volume 92.6 fl (80-94); Mean Platelet Volume 8.6 fl (7.4-10.4); Monocytes # 0.5 K/mm3 (0.1-1.0); Monocytes % 7.1 % (1.7-9.3); Neutrophils # 4.7 K/mm3 (1.8-7.8); Neutrophils % 68.3 % (37.0-80.0); Platelet Count 366 K/mm3 (142-424); Red Blood Count 3.87 M/mm3 (4.60-6.20); White Blood Count 6.9 K/mm3 (4.8-10.8)
[2024-02-16 19:41] LABS: Hemoglobin A1C 5.8 % (4.0-6.0)
[2024-02-16 20:25] LABS: Chloride 104 mmol/L (98-107); Potassium 3.9 mmoL/L (3.5-5.1); Sodium 137 mmol/L (136-145)
[2024-02-16 20:27] LABS: Alanine Aminotransferase 14 U/L (12-78); Aspartate Amino Transferase 23 U/L (17-59); Blood Urea Nitrogen 14 mg/dl (9-20); Estimated Glomerular Filt Rate 100 ml/min (>60); GFR (African American) 121 ML/MIN (>60)
[2024-02-16 20:28] LABS: Albumin Level 2.9 g/dl (3.5-5.0); Albumin/Globulin Ratio 0.9 (1.1-1.8); Alkaline Phosphatase 121 U/L (38-126); Anion Gap 6.9 mEq/L (5-15); Bilirubin,Total 0.4 mg/dl (0.2-1.3); Calcium 8.6 mg/dl (8.4-10.2); Carbon Dioxide 30 mmol/L (22.0-30.0); Chol/HDL Ratio 6.8 (1-3.5); Cholesterol 170 mg/dl (140-200); Globulin 3.4 g/dL (1.3-3.2); Glucose 112 mg/dl (74-100); HDL Cholesterol 25 mg/dl (40-60); Iron 54 ug/dL (49-181); Total Protein,Serum 6.3 g/dl (6.3-8.2); Triglycerides 180 mg/dl (30-150); VLDL Cholesterol 36 mg/dL (0-40)
[2024-02-16 20:51] LABS: 25-OH Vitamin D, Total 35.2 ng/mL (30-100)
[2024-02-16 20:54] LABS: Direct LDL Cholesterol 92.98 mg/dL (100-129)
[2024-02-16 21:13] LABS: Creatinine,Urine Random 82 mg/dL (Not Estab.); Microalbumin < 6.000 mg/L (0-16.7)
[2024-02-16 21:16] LABS: Thyroid Stimulating Hormone 0.96 uIU/mL (0.465-4.68)
[2024-02-16 21:22] LABS: Vitamin B12 521 pg/mL (239-931)
== END 2024-02-16 23:59 ==
LOC: LAB.DROPOF 19:02
PROVIDERS: PCP Internal Medicine; Visit Provider Internal Medicine
DX: R53.83 Other fatigue (principal); R73.09 Other abnormal glucose; E55.9 Vitamin D deficiency, unspecified; Z79.899 Other long term (current) drug therapy
CPT/HCPCS: 80053; 80061; 82043; 82306; 82565; 82570; 82607; 83036; 83540; 84443; 84520; 85025

== ENCOUNTER 2024-05-02 13:03 | Emergency (ER) | payer OTHER, SELFPAY ==
[2024-05-02 13:11] VITALS: BP 146/104; PULSE 72; RESP 20; TEMP 36.8; O2SAT 100; BMI 27.0
[2024-05-02 13:30] VITALS: BP 139/100; PULSE 86; O2SAT 98
--- NOTE | 2024-05-02 13:38 | ED_ITS ---
Discharge Plan Disposition Patient Disposition: Home, Self-Care Prescriptions Prescriptions: New Eliquis 5 mg tablet 5 mg PO BID 90 Days Qty: 190 0RF Rx Instructions: please take 10 mg BID for 7 days followed by 5 mg BID for a total of 3 months No Action ipratropium-albuterol 20-100 mcg/actuation mist 2 puff IH QID PRN (Reason: Shortness Of Breath Or Wheezing) 90 Days Qty: 4 0RF testosterone cypionate 200 mg/mL oil 50 mg IM Q3W Qty: 1 2RF buspirone 10 mg tablet 10 mg PO BID Qty: 60 2RF gabapentin 600 mg tablet 600 mg PO BID 30 Days Qty: 60 0RF hydrocodone-acetaminophen 5-325 mg tablet 1 tab PO BID 30 Days Qty: 60 0RF Auvelity 45-105 mg tablet, IR and ER, biphasic 1 tab PO BID Qty: 60 2RF ipratropium-albuterol 0.5 mg-3 mg(2.5 mg base)/3 mL solution for nebulization See Rx Instructions .ROUTE .COMPLEX Qty: 180 3RF Dose Instruction: INHALE CONTENTS OF 1 VIAL 4 TIMES EACH DAY USING A NEBULIZER NEEDED FOR SHORTNESS OF BREATH Rx Instructions: INHALE CONTENTS OF 1 VIAL 4 TIMES EACH DAY USING A NEBULIZER NEEDED FOR SHORTNESS OF BREATH cholecalciferol (vitamin D3) 1,250 mcg (50,000 unit) capsule See Rx Instructions .ROUTE .COMPLEX Qty: 14 2RF Dose Instruction: TAKE 1 CAPSULE 1 TIME EACH WEEK Rx Instructions: TAKE 1 CAPSULE 1 TIME EACH WEEK aspirin 81 mg tablet,delayed release (DR/EC) See Rx Instructions .ROUTE .COMPLEX Qty: 60 2RF Dose Instruction: TAKE 1 TABLET 1 TIME EACH DAY FOR HEART DISEASE Rx Instructions: TAKE 1 TABLET 1 TIME EACH DAY FOR HEART DISEASE fluticasone propion-salmeterol [Advair HFA] 115-21 mcg/actuation HFA aerosol inhaler See Rx Instructions .ROUTE .COMPLEX Qty: 12 3RF Dose Instruction: INHALE 2 PUFFS 2 TIMES EACH DAY Rx Instructions: INHALE 2 PUFFS 2 TIMES EACH DAY pantoprazole 40 mg tablet,delayed release (DR/EC) See Rx Instructions .ROUTE .COMPLEX Qty: 90 3RF Dose Instruction: TAKE 1 TABLET 1 TIME EACH DAY FOR REFLUX Rx Instructions: TAKE 1 TABLET 1 TIME EACH DAY FOR REFLUX lisinopril 10 mg tablet See Rx Instructions .ROUTE .COMPLEX Qty: 30 2RF Dose Instruction: TAKE 1 TABLET 1 TIME EACH DAY AT BEDTIME Rx Instructions: TAKE 1 TABLET 1 TIME EACH DAY AT BEDTIME docusate sodium 100 mg capsule See Rx Instructions .ROUTE .COMPLEX Qty: 60 3RF Dose Instruction: TAKE 1 CAPSULE 2 TIMES EACH DAY Rx Instructions: TAKE 1 CAPSULE 2 TIMES EACH DAY clonazepam 0.25 mg tablet,disintegrating 0.25 mg PO TID Qty: 90 0RF Rx Instructions: 0.5 mg ( 2 tablets) in AM, 0.25mg (1 tablet) in the afternoon, 0.5mg (2 tablets) in PM. TID dosing. Referrals Follow up/Referrals: Zoran Jones DO [Primary Care Provider] - See instructions Activity Restrictions/Add. 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 Clinical Impressions Clinical Impression: Acute deep vein thrombosis (DVT) of left upper extremity Discharge ED Provider: Dionne Quintanilla General Adult HPI General Chief complaint: Extremity Problem,Nontraumatic Stated complaint: Pain in L forearm, hot to the touch Time Seen by Provider: 05/02/24 13:38 Mode of Arrival: Ambulatory Source of Information: Patient Limitations: No Limitations Description of Symptoms (Recalled from ER Triage Doc. by RN): pt to ed c/o left forearm swelling. pt states the swelling started in his antecubital area and has migrated to his forearm. pt denies pain/numbness/tingling. History of Present Illness HPI narrative: 58-year-old history of DVT not on any anticoagulants presents today with left upper extremity swelling and pain over the last few days. No injuries that he is aware of no injections no redness no warmth no fevers or chills. States his arm is more swollen than the other arm. Related Data Previous Rx's Medication Instructions Recorded ipratropium 20 mcg-albuterol 100 2 puff inhalation QID PRN 06/13/ mcg/actuation mist for inhalation Shortness Of Breath Or Wheezing 90 days #4 grams ipratropium 0.5 mg-albuterol 3 mg See Rx Instructions .Route 10/14/22 (2.5 mg base)/3 mL nebulization .COMPLEX #180 mL soln cholecalciferol (vitamin D3) 1,250 See Rx Instructions .Route 09/25/23 mcg (50,000 unit) capsule .COMPLEX #14 caps testosterone cypionate 200 mg/mL 50 mg (0.25 mL) IM Q3W #1 mL 09/25/23 intramuscular oil aspirin 81 mg tablet,delayed See Rx Instructions .Route 11/25/23 release .COMPLEX #60 tabs fluticasone propionate 115 See Rx Instructions .Route 11/25/23 mcg-salmeterol 21 mcg/actuation .COMPLEX #12 grams HFA inhaler (Advair HFA) pantoprazole 40 mg tablet,delayed See Rx Instructions .Route 11/25/23 release .COMPLEX #90 tabs lisinopril 10 mg tablet See Rx Instructions .Route 02/15/24 .COMPLEX #30 tabs dextromethorphan IR 45 1 tab PO BID #60 ea 03/16/24 mg-bupropion ER 105 mg biphasic tablet (Auvelity) buspirone 10 mg tablet 10 mg PO BID #60 tabs 04/19/24 docusate sodium 100 mg capsule See Rx Instructions .Route 04/19/24 .COMPLEX #60 caps gabapentin 600 mg tablet 600 mg PO BID Pain 30 days #60 tabs 04/19/24 hydrocodone 5 mg-acetaminophen 325 1 tab PO BID pain 30 days #60 tabs 04/19/24 mg tablet clonazepam 0.25 mg disintegrating 0.25 mg PO TID #90 tabs 04/20/24 tablet apixaban 5 mg tablet (Eliquis) 5 mg PO BID 90 days #190 tabs 05/02/24 Allergies Allergy/AdvReac Type Severity Reaction Status Date / Time sulfamethoxazole Allergy Unknown Unknown Verified 04/19/24 10:18 [From BACTRIM] allergy reaction trimethoprim [From BACTRIM] Allergy Unknown Unknown Verified 04/19/24 10:18 allergy reaction [facility] Disclaimer: The information contained in this section may have been updated after the patient was seen, as this information can be updated by other users. Medical History Sinusitis, acute maxillary Syncope Bronchitis Pre-diabetes Patient has had multiple labs over the last month. His A1c was elevated but this was during a time of great illness. I will check this in a few months again. Prediabetes is not made based on 1 value. Pneumonia due to COVID-19 virus Phalanx, distal fracture of finger HTN (hypertension) Patient's blood pressure today is 112/70. He tends to run low. He is on lisinopril per day. He denies any symptomatology of vertigo, syncope, chest pain pressure tightness, or confusion other than that with his recent hospitalization with rhabdomyolysis. Fatigue Chest pain Family History Other Right arm pain Social History Smoking Status: Never smoker alcohol intake: never substance use type: denies use current occupational status: employed Travel in the last 8 weeks: None household members: spouse and children housing: apartment caffeine: Yes ROS Obtained: Yes All systems reviewed & no additional complaints except as documented Physical Exam General General appearance: alert and in no apparent distress Respiratory Respiratory exam: Present normal lung sounds bilaterally Cardiovascular Cardiovascular exam: Present regular rate and normal rhythm Extremities Exam Extremities exam: Present other (Left upper extremity is swollen out of proportion to the right there are normal pulses compartments are soft no significant tenderness erythema or warmth) Neurological Exam Neurological exam: Present alert and oriented X3 Medical Decision Making Francois Inquiry Pt receiving controlled substance: No Vital Signs: 05/02/24 13:11 05/02/24 13:30 Temperature 98.2 F Temperature Source Oral Pulse Rate 86 Pulse Rate [Left Radial] 72 Respiratory Rate 20 Blood Pressure 139/100 H Blood Pressure [Right Arm] 146/104 H Blood Pressure Mean 107 Blood Pressure Mean [Right Arm] 118 02 Sat by Pulse Oximetry 100 98 Oxygen Delivery Method Room Air Lab Data Lab results reviewed: Yes I reviewed the patient's lab results. Lab Results 05/02/24 14:04: WBC 5.8, RBC 4.46 L, Hgb 13.5 L, Hct 41.4 L, MCV 92.7, MCH 30.3, MCHC 32.7, RDW 14.6, Plt Count 314, MPV 7.8, Neut % (Auto) 65.1, Lymph % (Auto) 25.9, [place] % (Auto) 6.0, Eos % (Auto) 1.8, Baso % (Auto) 1.2, Neut # (Auto) 3.8, Lymph # (Auto) 1.5, [place] # (Auto) 0.4, Eos # (Auto) 0.1, Baso # (Auto) 0.1, Sodium 140, Potassium 3.9, Chloride 103, Carbon Dioxide 30, Anion Gap 10.9, BUN 13, Creatinine 0.80, Estimated Creat Clear 134, Estimated GFR 100, Est GFR ( Amer) 121, Glucose 109 H, Calcium 9.6, Total Bilirubin 0.3, AST 23, ALT 17, Alkaline Phosphatase 65, Total Protein 8.1 D, Albumin 4.3, Globulin 3.8 H, Albumin/Globulin Ratio 1.1 05/02/24 14:19: PT 10.9, INR 1.01, APTT 25.9 05/02/24 14:04 05/02/24 14:04 Orders (Tests/Meds): ORDERS Category Date Time Status POCUS Point of Care (ER Only) Stat Exams 05/02/24 13:41 Ordered CBC w/Auto Diff [Complete Blood Count Auto Diff] Stat Lab 05/02/24 14:04 Completed CMP [Comprehensive Metabolic Panel] Stat Lab 05/02/24 14:04 Completed PT/PTT Stat Lab 05/02/24 14:19 Completed CA venous doppler UE LT Stat Y 05/02/24 13:50 Completed Medical Decision Narrative: 58-year-old with above history and physical differential includes musculoskeletal strain tendinitis DVT cellulitis etc. Soft tissue ultrasound was performed which did not demonstrate any soft tissue fluid tracking however deep veins were unable to be compressed and there was no augmentation make me concerned for DVT formal ultrasound has been ordered and is pending. Reassessment labs unremarkable radiology ultrasound confirms there is a left upper extremity DVT. Will initiate the patient on Eliquis. He has been given 3 months but likely will need lifelong anticoagulation as this is his second DVT. He is aware of this he will follow-up with primary care doctor he has no chest pain shortness of breath or any signs or symptoms of pulmonary embolism he has been advised to return with any of those symptoms and he understands those. He was discharged in stable condition. Procedures Miscellaneous Procedure Procedure Performed: Limited DVT ultrasound of the left upper extremity Indication left arm pain and swelling Findings in the left medial aspect of the upper extremity and forearm deep veins are not able to be compressed and no augmentation concerning for possible DVT. No other soft tissue swelling or alternative explanation radiographically of patient's symptoms. Images were saved this did prompt further more comprehensive radiology imaging. Critical Care Critical Care Time Critical Care Time: No
--- NOTE | 2024-05-02 13:38 | PC.NURSE ---
DR ALCARAZ AT BEDSIDE
--- NOTE | 2024-05-02 13:50 | CA_ITS ---
FINAL REPORT TECHNIQUE: Sonographic images of the veins of the left upper extremity were obtained from axilla to antecubital fossa. Additionally, images of the internal jugular vein and subclavian vein were also obtained. CLINICAL HISTORY: PAIN.EDEMA LT FOREARM,NKI FINDINGS: Thrombus is seen in the left basilic vein. There is superficial thrombophlebitis seen in the left forearm. Other veins are patent. IMPRESSION: Deep vein thrombus in the left basilic vein. Reviewed, Interpreted and Dictated by Surinder Guevara III, MD Transcribed by Fawn Botello Authenticated and [facility]
[2024-05-02 14:27] LABS: Chloride 103 mmol/L (98-107); Potassium 3.9 mmoL/L (3.5-5.1); Sodium 140 mmol/L (136-145)
[2024-05-02 14:30] LABS: Alanine Aminotransferase 17 U/L (12-78); Albumin Level 4.3 g/dl (3.5-5.0); Albumin/Globulin Ratio 1.1 (1.1-1.8); Alkaline Phosphatase 65 U/L (38-126); Anion Gap 10.9 mEq/L (5-15); Aspartate Amino Transferase 23 U/L (17-59); Basophils # 0.1 K/mm3 (0-0.2); Basophils % 1.2 % (0.1-2.0); Bilirubin,Total 0.3 mg/dl (0.2-1.3); Blood Urea Nitrogen 13 mg/dl (9-20); Carbon Dioxide 30 mmol/L (22.0-30.0); Creatinine Clearance Estimated 134 mL/min (50-200); Eosinophils # 0.1 K/mm3 (0.0-0.4); Eosinophils % 1.8 % (0.1-12.0); Estimated Glomerular Filt Rate 100 ml/min (>60); GFR (African American) 121 ML/MIN (>60); Globulin 3.8 g/dL (1.3-3.2); Hematocrit 41.4 % (42.0-52.0); Hemoglobin 13.5 g/dL (14.1-18.0); Lymphocytes # 1.5 K/mm3 (0.7-4.5); Lymphocytes % 25.9 % (10-50); Mean Corpuscular HGB Conc 32.7 g/dL (31.8-35.4); Mean Corpuscular Hemoglobin 30.3 pg (27.0-31.2); Mean Corpuscular Volume 92.7 fl (80-94); Mean Platelet Volume 7.8 fl (7.4-10.4); Monocytes # 0.4 K/mm3 (0.1-1.0); Neutrophils # 3.8 K/mm3 (1.8-7.8); Neutrophils % 65.1 % (37.0-80.0); Platelet Count 314 K/mm3 (142-424); Red Blood Count 4.46 M/mm3 (4.60-6.20); Red Cell Distribution Width 14.6 % (11.5-17.5); Total Protein,Serum 8.1 g/dl (6.3-8.2); White Blood Count 5.8 K/mm3 (4.8-10.8)
[2024-05-02 14:31] LABS: Calcium 9.6 mg/dl (8.4-10.2); Glucose 109 mg/dl (74-100)
[2024-05-02 14:38] LABS: Activated Partial Thrombo Time 25.9 seconds (22.8-30.6); INR 1.01 (0.9-1.1); Prothrombin Time 10.9 seconds (10.1-12.5)
[2024-05-02 15:07] VITALS: BP 139/100; PULSE 86; RESP 20; TEMP 36.8; O2SAT 98
== END 2024-05-02 15:08 | disposition home or self-care (01) ==
PROVIDERS: Emergency Provider Student in an Organized Health Care Education/Training Program; PCP Internal Medicine
DX: I82.622 Acute embolism and thrombosis of deep veins of left upper extremity (principal); M79.632 Pain in left forearm; I10 Essential (primary) hypertension
CPT/HCPCS: 80053; 85025; 85610; 85730; 93971; 99284

== ENCOUNTER 2024-05-17 11:32 | Outpatient (CLI) | payer OTHER, SELFPAY ==
[2024-05-17 11:54] LABS: Basophils # 0.1 K/mm3 (0-0.2); Basophils % 1.2 % (0.1-2.0); Eosinophils # 0.2 K/mm3 (0.0-0.4); Eosinophils % 3.1 % (0.1-12.0); Hematocrit 43.8 % (42.0-52.0); Hemoglobin 14.1 g/dL (14.1-18.0); Lymphocytes # 1.6 K/mm3 (0.7-4.5); Lymphocytes % 27.2 % (10-50); Mean Corpuscular HGB Conc 32.3 g/dL (31.8-35.4); Mean Corpuscular Volume 93.1 fl (80-94); Mean Platelet Volume 7.7 fl (7.4-10.4); Monocytes # 0.3 K/mm3 (0.1-1.0); Monocytes % 5.7 % (1.7-9.3); Neutrophils # 3.7 K/mm3 (1.8-7.8); Neutrophils % 62.8 % (37.0-80.0); Platelet Count 325 K/mm3 (142-424); Red Blood Count 4.71 M/mm3 (4.60-6.20); Red Cell Distribution Width 14.1 % (11.5-17.5); White Blood Count 5.8 K/mm3 (4.8-10.8)
[2024-05-17 12:11] LABS: D-Dimer 0.59 ug/mL (0.0-0.5)
[2024-05-17 12:24] LABS: Activated Partial Thrombo Time 27.9 seconds (22.8-30.6); INR 1.01 (0.9-1.1); Prothrombin Time 10.9 seconds (10.1-12.5)
[2024-05-18 10:24] LABS: HIV (1&2) Antibody Rapid NON REACTIVE
[2024-05-18 13:04] LABS: HCV Ab Non Reactive (Non Reactive)
[2024-05-19 00:08] LABS: Protein S, Free 106 % (61-136); Protein S, Total 89 % (60-150); Protein S-Functional 94 % (63-140)
[2024-05-20 06:28] LABS: Protein C Antigen 125 % (60-150)
[2024-05-31 13:18] LABS: APTT 28.2 sec (.); Anti-Cardiolipin Antibody IgG <10 GPL (.); Anti-Cardiolipin Antibody IgM <10 MPL (.); Beta-2 Glycoprotein I Ab, IgA <10 SAU (.); Beta-2 Glycoprotein I Ab, IgG <10 SGU (.); Beta-2 Glycoprotein I Ab, IgM <10 SMU (.); Hexagonal Phase Phospholipid 2 sec (.); Prothrombin Time 10.9 sec (.); Thrombin Time 17.3 sec (.)
== END 2024-05-17 23:59 | disposition home or self-care (01) ==
LOC: LAB 11:33
PROVIDERS: PCP Internal Medicine; Visit Provider Internal Medicine
DX: I82.622 Acute embolism and thrombosis of deep veins of left upper extremity (principal); K92.1 Melena
CPT/HCPCS: 86703; 86803; 36415; 85025; 85302; 85305; 85306; 85378; 85597; 85598; 85610; 85613; 85670; 85730; 86146; 86147

== ENCOUNTER 2024-06-15 10:01 | Outpatient (CLI) | payer OTHER, SELFPAY ==
[2024-06-15 18:49] LABS: Hemoglobin A1C 5.4 % (4.0-6.0)
[2024-06-15 19:11] LABS: Chol/HDL Ratio 4.6 (1-3.5); Cholesterol 194 mg/dl (140-200); HDL Cholesterol 42 mg/dl (40-60); Triglycerides 128 mg/dl (30-150); VLDL Cholesterol 26 mg/dL (0-40)
[2024-06-15 19:22] LABS: Direct LDL Cholesterol 111.97 mg/dL (100-129)
== END 2024-06-15 23:59 | disposition home or self-care (01) ==
LOC: LAB.DROPOF 06-16 10:02
PROVIDERS: PCP Internal Medicine; Visit Provider Internal Medicine
DX: Z79.899 Other long term (current) drug therapy (principal)
CPT/HCPCS: 80061; 83036

== ENCOUNTER 2024-08-02 18:45 | Outpatient (CLI) | payer OTHER, SELFPAY ==
--- NOTE | 2024-08-02 18:46 | MR_ITS ---
PROCEDURE INFORMATION: Exam: MR Lumbar Spine Without Contrast Exam date and time: 08/02/2024 7:23 PM Age: 58 years old Clinical indication: Low back pain; Additional info: Chronic pain TECHNIQUE: Imaging protocol: Magnetic resonance imaging of the lumbar spine without contrast. COMPARISON: NM BONE SCAN WHOLE BODY 05/02/2020 3:29 PM FINDINGS: Bones/joints: Unremarkable. No fracture. Normal alignment. Spinal cord: Visualized cord, conus medullaris and cauda equina are unremarkable without compression. Nerves: Inferior foraminal extension of disc bulge on the left at the level of L3-L4 which comes close to and minimally graze the caudal margin of the exiting left L3 nerve root with overall mild left neural foraminal stenosis. L1-L2: No significant disc bulge or herniation. No severe spinal canal stenosis. No significant neural foraminal narrowing. L2-L3: Right-sided extraforaminal disc herniation at the level of L2-L3 contacting and likely exerting mass effect upon the exited L2 nerve root. See series 5 image 8. L3-L4: Inferior foraminal extension of disc bulge on the left at the level of L3-L4 which comes close to and minimally graze the caudal margin of the exiting left L3 nerve root with overall mild left neural foraminal stenosis. . L4-L5: At L4-L5, 2 mm AP dimension broad-based disc bulge identified without spinal stenosis or neural foraminal narrowing. L5-S1: No significant disc bulge or herniation. No severe spinal canal stenosis. No significant neural foraminal narrowing. Soft tissues: Unremarkable. IMPRESSION: 1. Right-sided extraforaminal disc herniation at the level of L2-L3 contacting and likely exerting mass effect upon the exited L2 nerve root. See series 5 image 8. 2. Inferior foraminal extension of disc bulge on the left at the level of L3-L4 which comes close to and minimally graze the caudal margin of the exiting left L3 nerve root with overall mild left neural foraminal stenosis. 3. At L4-L5, 2 mm AP dimension broad-based disc bulge identified without spinal stenosis or neural foraminal narrowing.
--- NOTE | 2024-08-02 18:58 | XR_ITS ---
PROCEDURE INFORMATION: Exam: XR Orbits, MR Screening Exam date and time: 08/02/2024 7:00 PM Age: 58 years old Clinical indication: Screening exam; R/O metal in eye for mri; Additional info: R/O metal foegin body for mri TECHNIQUE: Imaging protocol: XR of the orbits. Exam was performed for MR screening. Views: 1 or 2 views COMPARISON: CT HEAD/BRAIN WO CON 01/24/2024 3:56 AM FINDINGS: Sinuses: Well aerated. No opacification. Bones/joints: No fracture. Soft tissues: Unremarkable. Radiopaque device or foreign body: None. No evidence of device or foreign body. No visible contraindication for MRI on this exam. IMPRESSION: No visible contraindication to MRI on this exam.
== END 2024-08-02 23:59 | disposition home or self-care (01) ==
LOC: RAD 18:46
PROVIDERS: PCP Internal Medicine; Visit Provider Internal Medicine
DX: M54.41 Lumbago with sciatica, right side (principal); M54.42 Lumbago with sciatica, left side; G89.29 Other chronic pain; M54.16 Radiculopathy, lumbar region; M54.6 Pain in thoracic spine; Z03.823 Encounter for observation for suspected inserted (injected) foreign body ruled out
CPT/HCPCS: 70200; 72148